=== PATIENT | female | born 2000 | race Caucasian/White ===

== ENCOUNTER 2022-08-18 23:45 | Emergency (ER) | payer MEDICAID, SELFPAY ==
[2022-08-18 23:49] VITALS: BP 149/97; PULSE 114; RESP 16; TEMP 36.5; O2SAT 98; BMI 33.4
[2022-08-19 00:59] LABS: MANUAL DIFF FLAG NO
[2022-08-19 01:00] LABS: Basophils Percent Auto 0.3 % (0-2); Eosinophils Absolute Auto 0.4 X10*3/uL (0.0-0.4); Eosinophils Percent Auto 4.4 % (0-4); Hematocrit 38.9 % (37.0-47.0); Hemoglobin 12.5 g/dl (12.0-16.0); Imm Gran Abs Auto 0.02 X10*3/uL (0.00-0.03); Imm Gran Pct Auto 0.2 % (0.0-0.4); Lymphocytes Absolute Auto 2.9 X10*3/uL (1.2-4.9); Lymphocytes Percent Auto 32.2 % (20-40); Mean Corpuscular HGB Conc 32.1 g/dl (31.0-35.0); Mean Corpuscular Hemoglobin 28.2 pg (27.0-33.0); Mean Corpuscular Volume 87.8 fL (80.0-98.0); Mean Platelet Volume 10.2 fL (9.4-12.3); Monocytes Absolute Auto 0.6 X10*3/uL (0.1-1.2); Monocytes Percent Auto 6.6 % (2-11); Neutrophils Percent Auto 56.3 % (45-73); Platelet Count 311 X10*3/uL (160-400); Red Blood Count 4.43 X10*6/uL (4.20-5.50); Red Cell Distribution Width 13.4 % (11.0-16.0)
[2022-08-19 01:02] LABS: COVID-19 Test Negative (Negative); IDNOW Serial# 55D5AD1C
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
[2022-08-19 01:14] LABS: Ethanol < 10 mg/dL
[2022-08-19 01:17] LABS: Alanine Aminotransferase 31 U/L (0-31); Albumin Level 4.2 g/dL (3.5-5.0); Alkaline Phosphatase 65 U/L (39-117); Anion Gap 15 (12-20); Aspartate Amino Transferase 19 U/L (5-31); Bilirubin Total 0.3 mg/dL (0.0-1.0); Blood Urea Nitrogen 11 mg/dL (9-16); Calcium 9.3 mg/dL (8.4-10.2); Carbon Dioxide 26 mmol/L (22-29); Chloride 107 mmol/L (96-108); Creatinine Clr Calc Pharmacy 121.7; Estimated Glomerular Filt Rate > 60; Glucose Random 154 mg/dL (60-115); Potassium 4.7 mmol/L (3.3-5.1); Sodium 143 mmol/L (135-145)
[2022-08-19 01:52] LABS: Appearance Urine Clear; Color Urine Yellow; Glucose Urine UA Negative (Negative); Leukocyte Esterase Urine Negative (Negative); Nitrite Urine Negative (Negative); PH 6.5 (5.0-9.0); Urine Blood Negative (Negative); Urine Ketones Negative (Negative); Urine Protein Negative (Neg-Trace)
[2022-08-19 01:54] LABS: UPreg QC Valid YES; Urine Pregnancy NEGATIVE (NEGATIVE)
[2022-08-19 02:00] LABS: Amphetamine Screen Urine Not Detected; Barbiturates, Urine Not Detected; Benzodiazepines Screen Urine Not Detected; Cannabinoid Screen Urine Not Detected; Cocaine Screen Urine Not Detected; Fentanyl, urine Not Detected; Opiate Screen Urine Not Detected; Phencyclidine Screen Urine Not Detected
[2022-08-19] MEDS: LORazepam 1 MG TABLET PO (02:28)
--- NOTE | 2022-08-19 05:52 | PC.NURSE ---
patient is in bed appears sleeping, no distress observed/reported, patient reported anxiety 11/15/Ativan 1 mg PO administered as ordered at 0228 with + effect, care consult ordered/pending evaluation, med rec completed/patient is currently not on any medication behavior non concerning, VSS, will continue to monitor
--- NOTE | 2022-08-19 08:00 | PC.NURSE ---
pt is sleeping resp even and unlabored.
--- NOTE | 2022-08-19 08:19 | PC.NURSE ---
pt's mother at bedside.
[2022-08-19] MEDS: Escitalopram Oxalate 20 MG TABLET PO (11:34)
[2022-08-19 11:39] VITALS: BP 113/69; PULSE 93; RESP 18; TEMP 36.4; O2SAT 99
--- NOTE | 2022-08-19 12:37 | PC.NURSE ---
financial councillor (dakotah) bedside with pt.
--- NOTE | 2022-08-19 12:52 | MHC.CARE ---
patient is a CSU/ respite bed search. No current beds at [facility], may have some tomorrow. BANK MANAGER [place] will call back re: availability, they have no power. [facility]. Pt able to stay in ED until safe disposition secured.
--- NOTE | 2022-08-19 13:31 | PC.NURSE ---
pt's mother is at bedside. pt is watching tv in common area.
--- NOTE | 2022-08-19 16:12 | PC.NURSE ---
pt resting on bed at this time, mom was at bedside until about 1545. Endorses SI at this time
[2022-08-19] MEDS: LORazepam 1 MG TABLET 2 MG PO (20:19)
[2022-08-20] VITALS: BP 124/39; PULSE 80; RESP 17; TEMP 36.4; O2SAT 98
--- NOTE | 2022-08-20 06:09 | PC.NURSE ---
Patient slept through the night, no distress observed/reported, Ativan 2 mg PO administered at 2219 with + effect, patient had one incontinent episode/care provided, medication compliant, behavior non concerning, disposition per care team is Respite bed search, VSS, will continue to monitor.
[2022-08-20] MEDS: Escitalopram Oxalate 20 MG TABLET PO (07:52)
[2022-08-20 08:47] VITALS: BP 118/67; PULSE 73; RESP 16; TEMP 36.5; O2SAT 98
--- NOTE | 2022-08-20 09:23 | MHC.CARE ---
re-sent [facility] respite/ CSU referral with the [facility] referral form. [facility]ia vuong [facility] reports they will likely have discharges today and will review and follow up
--- NOTE | 2022-08-20 13:05 | MHC.CARE ---
[facility] is still reviewing for their adult CSU beds and will follow up. In the meantime, patient is agreeable to being reviewed with KRIST[facility] Yoder in [place]. Faxed 08/20 [phone]
[2022-08-20] MEDS: Ondansetron ODT 4 MG TAB.RAPDIS TRANSLINGU (16:06)
[2022-08-20 18:09] VITALS: PULSE 18; O2SAT 98
--- NOTE | 2022-08-20 18:32 | PC.NURSE ---
PT HAS BEEN CALM AND COOPERATIVE WAITING ON BED PLACEMENT HAVING ISSUE WITH VOMITING THIS AFTERNOON RESOLVED WITH MEDICATIONS
[2022-08-20 22:00] VITALS: BP 117/69; PULSE 90; RESP 18; TEMP 36.6; O2SAT 97
[2022-08-20] MEDS: diphenhydrAMINE HCL 25 MG CAPSULE PO (22:45)
[2022-08-20] MEDS: LORazepam 0.5 MG TABLET PO (22:45)
[2022-08-21 04:57] VITALS: BP 126/76; PULSE 97; RESP 16; TEMP 36.6; O2SAT 99
--- NOTE | 2022-08-21 06:16 | PC.NURSE ---
Patient requested medication for anxiety, provider notified/ordered Ativan 0.5 mg and Benadryl 25 mg administered at 2245 with + effect, patient slept through the night, no distress observed/reported, patient's disposition is Respite bed search, behavior non concerning, medication compliant, VSS, will continue to monitor.
--- NOTE | 2022-08-21 07:13 | PC.NURSE ---
Patient sleeping no distress noted
[2022-08-21] MEDS: Escitalopram Oxalate 20 MG TABLET PO (08:05)
--- NOTE | 2022-08-21 08:30 | PC.NURSE ---
Mother at bedsdie with patient will CTM
== END 2022-08-21 10:17 | disposition other institution (70) ==
PROVIDERS: Emergency Provider Emergency Medicine
DX: R45.851 Suicidal ideations (principal); F41.9 Anxiety disorder, unspecified; F60.3 Borderline personality disorder; Z91.52 Personal history of nonsuicidal self-harm; F12.90 Cannabis use, unspecified, uncomplicated; Z20.822 Contact with and (suspected) exposure to COVID-19
CPT/HCPCS: 36415; 80053; 80307; 81003; 81025; 82077; 85025; 87635; 99285; S9485

== ENCOUNTER 2022-08-30 21:21 | Inpatient (IN) | payer MEDICAID, SELFPAY ==
[2022-08-30 21:27] VITALS: BP 137/101; PULSE 133; RESP 20; TEMP 37.1; O2SAT 98; BMI 34.2
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
[2022-08-30 22:42] LABS: UPreg QC Valid YES; Urine Pregnancy NEGATIVE (NEGATIVE)
[2022-08-30 22:44] LABS: Appearance Urine Clear; Color Urine Yellow; Glucose Urine UA Negative (Negative); Leukocyte Esterase Urine Negative (Negative); Nitrite Urine Negative (Negative); Specific Gravity - Urine >= 1.030 (1.005-1.025); Urine Blood Negative (Negative); Urine Ketones Trace mg/dL (Negative); Urine Protein Negative (Neg-Trace)
[2022-08-30 22:55] LABS: Amphetamine Screen Urine Not Detected; Barbiturates, Urine Not Detected; Benzodiazepines Screen Urine Not Detected; Cannabinoid Screen Urine Not Detected; Cocaine Screen Urine Not Detected; Fentanyl, urine Not Detected; Opiate Screen Urine Not Detected; Phencyclidine Screen Urine Not Detected
[2022-08-30 23:24] LABS: COVID-19 Test Negative; IDNOW Serial# 6674DD1D
[2022-08-31 00:02] LABS: Basophils Percent Auto 0.3 %; Eosinophils Absolute Auto 0.2 X10*3/uL; Eosinophils Percent Auto 2.3 %; Hematocrit 36.7 %; Hemoglobin 11.9 g/dl; Imm Gran Abs Auto 0.02 X10*3/uL (0.00-0.03); Imm Gran Pct Auto 0.2 % (0.0-0.4); Lymphocytes Absolute Auto 2.9 X10*3/uL; Lymphocytes Percent Auto 29.1 %; MANUAL DIFF FLAG NO; Mean Corpuscular HGB Conc 32.4 g/dl; Mean Corpuscular Hemoglobin 28.1 pg; Mean Corpuscular Volume 86.6 fL; Mean Platelet Volume 10.1 fL (9.4-12.4); Monocytes Absolute Auto 0.8 X10*3/uL; Monocytes Percent Auto 7.8 %; Neutrophils Absolute Auto 6.1 x10*3/uL; Neutrophils Percent Auto 60.3 %; Platelet Count 281 X10*3/uL; Red Blood Count 4.24 X10*6/uL; Red Cell Distribution Width 13.7 % (11.0-16.0); White Blood Count 10.1 X10*3/uL
[2022-08-31 00:22] LABS: Alanine Aminotransferase 18 U/L; Alkaline Phosphatase 59 U/L; Anion Gap 13; Aspartate Amino Transferase 17 U/L; Bilirubin Total 0.3 mg/dL; Blood Urea Nitrogen 15 mg/dL; Calcium 9.1 mg/dL; Carbon Dioxide 24 mmol/L; Chloride 109 mmol/L; Estimated Glomerular Filt Rate > 60; Ethanol < 10 mg/dL; Glucose Random 101 mg/dL; Sodium 141 mmol/L; Total Protein 6.7 g/dL
[2022-08-31 01:30] VITALS: BP 116/79; PULSE 97; RESP 16; TEMP 36.8; O2SAT 99
[2022-08-31] MEDS: diphenhydrAMINE HCL 25 MG CAPSULE 50 MG PO ×2 (01:38→22:46)
--- NOTE | 2022-08-31 05:19 | PC.NURSE ---
Patient slept through the night, Benadryl 50 mg administered for sleep at 0138 with + effect, no distress observed/reported, patient engaged well with care team, disposition is section 12 inpatient bed search, behavior non concerning, med rec completed/pending provider's approval, will continue to monitor.
--- NOTE | 2022-08-31 15:02 | PC.NURSE ---
Addendum entered by Shahla Valle 08/31/22 15:06: pt awoke and informed this RN that they had bruises on back from falling down the stairs a few days ago. small areas of bruising on lower middle back. ice pack provided. Pt also requesting their Lexapro, no Lexapro was found in MAR or previous pt record. Pt states that the last time they had it filled, it was filled in [place]. MD epstein Original Note: Report received, pt sleeping at this time, mother with pt. respirations even and unlabored. no apparent distress
[2022-08-31] MEDS: Ibuprofen 400 MG TABLET PO (15:17)
[2022-08-31 16:00] VITALS: BP 132/82; PULSE 77; RESP 18; TEMP 37.1; O2SAT 100
[2022-08-31 20:21] VITALS: BP 119/76; PULSE 75; RESP 18; TEMP 36.8; O2SAT 100
[2022-09-01 05:43] VITALS: BP 120/74; PULSE 69; RESP 17; TEMP 36.8; O2SAT 100
--- NOTE | 2022-09-01 07:48 | PC.NURSE ---
patient appears to remain at rest at present on recliner watching television respirations are even and unlabored patient appears in no distress
[2022-09-01 09:46] VITALS: BP 116/70; PULSE 97; RESP 16; TEMP 36.8; O2SAT 99
--- NOTE | 2022-09-01 12:10 | ECG_ITS ---
Test Reason : psych meds Blood Pressure : / mmHG Vent. Rate : 075 BPM Atrial Rate : 075 BPM P-R Int : 132 ms QRS Dur : 090 ms QT Int : 400 ms P-R-T Axes : 056 043 036 degrees QTc Int : 446 ms Sinus rhythm with Premature atrial complexes with Aberrant conduction Otherwise normal ECG No previous ECGs available Referred By: Kelsi Gonzalez Electronically Signed By:VERONIKA NEVAREZ
[2022-09-01 20:43] VITALS: BP 143/89; PULSE 89; RESP 18; TEMP 36.7; O2SAT 100
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
[2022-09-02 09:00] VITALS: BP 120/68; PULSE 76; RESP 16; TEMP 36.6; O2SAT 96
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
[2022-09-02 10:15] LABS: Alanine Aminotransferase 23 U/L; Albumin Level 3.9 g/dL; Alkaline Phosphatase 57 U/L; Anion Gap 12; Aspartate Amino Transferase 19 U/L; Bilirubin Total 0.5 mg/dL; Blood Urea Nitrogen 8 mg/dL; Calcium 9.2 mg/dL; Carbon Dioxide 25 mmol/L; Chloride 108 mmol/L; Cholesterol 108 mg/dL; Estimated Glomerular Filt Rate > 60; Glucose Fasting 95 mg/dL; HDL Cholesterol 38 mg/dL; LDL Cholesterol Calculated 56 mg/dl; Potassium 4.9 mmol/L; Sodium 140 mmol/L; Total Protein 6.5 g/dL; Triglycerides 73 mg/dL
[2022-09-02 10:29] LABS: Estimated Average Glucose 105 mg/dL; Hemoglobin A1c % 5.3 %
[2022-09-02 10:45] LABS: Folate 18.2 ng/mL; Thyroid Stimulating Hormone 1.04 uIU/mL; Vitamin B12 744 pg/mL
[2022-09-02] MEDS: Escitalopram Oxalate 20 MG TABLET PO (17:38)
[2022-09-02 19:31] VITALS: BP 117/76; PULSE 106; RESP 18; TEMP 36.2; O2SAT 96
[2022-09-02] MEDS: cloNIDine HCL 0.1 MG TABLET PO (21:57)
[2022-09-03 08:46] VITALS: BP 110/55; PULSE 82; RESP 20; TEMP 37.1; O2SAT 98
[2022-09-03] MEDS: Acetaminophen 325 MG TABLET 650 MG PO (08:47)
[2022-09-03] MEDS: Escitalopram Oxalate 20 MG TABLET PO (08:48)
--- NOTE | 2022-09-03 16:46 | P.PNPSI_ITS ---
Subjective Subjective Date of Service: 09/03/22 Reason For Visit: SI Interim History: calm, cooperative. feeling better. slept well no nightmares. reports h/o abilify and vraylar, both of which gave her blurry vision, dizziness, and nausea. c/o anxiety and depression, discussed augmentation with atypical neuroleptics as has been attempted in the past, pt agreed to trial of geodon. per staff, active, appropriate. anxious. denies psych Sx. reading. not attending groups. safe. mild anx/dep eves. no SI/HI/AVH. slept well. planning to step down to respite, working with SW to secure a bed. Mental Status Exam Mental Status Exam Narrative: Appearance: wearing casual clothing, good hygiene, in NAD Behavior: cooperative Speech: clear, normal rate/rhythm/volume, spontaneous Psychomotor: no agitation or retardation noted TP: linear TC: no signs of psychosis, wanting help with finding treaters and housing Mood: better Affect: congruent, bright, non labile SI: denies- but reports intermittent SI/ non suicidal SIB. HI: denies VH/AH: none Delusions: none Insight/judgment: fair x 2. Memory/cog: alert, oriented x3. Grossly intact to conversational testing. Diagnostics Vital Signs (24Hr): Vital Signs - 24 hr 09/02/22 19:31 09/03/22 08:46 Temperature 97.2 F 98.7 F Pulse Rate 106 H 82 Respiratory Rate 18 20 Blood Pressure 117/76 110/55 L Pulse Oximetry 96 98 Oxygen Delivery Method Room Air Room Air BMI result Body Mass Index 34.2 Labs 08/30/22 23:56 09/02/22 08:38 Labs: Laboratory Results - last 48 hr 09/02/22 09/02/22 08:38 08:38 Sodium 140 Potassium 4.9 Chloride 108 Carbon Dioxide 25 Anion Gap 12 BUN 8 Creatinine 0.79 Estim Creat Clear Calc TNP Estimated GFR > 60 Fasting Glucose 95 Estimat Average Glucose 105 Hemoglobin A1c % 5.3 Calcium 9.2 Total Bilirubin 0.5 AST 19 ALT 23 Alkaline Phosphatase 57 Total Protein 6.5 Albumin 3.9 Triglycerides 73 Cholesterol 108 LDL Cholesterol, Calc 56 HDL Cholesterol 38 Vitamin B12 744 Folate 18.2 TSH 1.04 Medications Medications Current Medications Acetaminophen (Acetaminophen 325 Mg Tablet) 650 mg PO Q6H PRN PRN Reason: Headache/Pain Mild Scale (1-3) Last Admin: 09/03/22 08:47 Dose: 650 mg Al Hydroxide/Mg Hydroxide (Magnesium Hydrox/Alum Hydrox 30 Ml Oral.Susp) 30 ml PO Q6H PRN PRN Reason: Heartburn/Nausea Clonidine HCl (Clonidine Hcl 0.1 Mg Tablet) 0.1 mg PO BEDTIME YUDI; Protocol Last Admin: 09/02/22 21:57 Dose: 0.1 mg Escitalopram Oxalate (Escitalopram Oxalate 20 Mg Tablet) 20 mg PO DAILY YUDI Last Admin: 09/03/22 08:48 Dose: 20 mg Hydroxyzine HCl (Hydroxyzine Hcl 25 Mg Tablet) 25 mg PO Q6H PRN PRN Reason: Anxiety Magnesium Hydroxide (Milk Of Magnesia 30 Ml Oral.Susp) 30 ml PO DAILY PRN PRN Reason: Constipation Trazodone HCl (Trazodone Hcl 50 Mg Tablet) 50 mg PO BEDTIME PRN PRN Reason: Insomnia Ziprasidone (Ziprasidone 20 Mg Capsule) 20 mg PO BIDWM YUDI Allergies Allergies Allergy/AdvReac Type Severity Reaction Status Date / Time insect venom Allergy Swelling Verified 08/19/22 00:16 Penicillins Allergy Nausea Verified 08/19/22 00:14 Assessment & Plan Assessment & Plan (1) Borderline personality disorder: Status: Acute Code(s): F60.3 - Borderline personality disorder Plan Slava is a 22 non binary (prefers they pronoun) who self [place] [facility] [place] SI in context of argument with grandmother with whom she is living. Pt reports tumultuous relationship with grandmother but states they are staying with her due to financial and housing limitations. On the unit, pt denies SI/HI. Pt does report hx of SIB on and off- denies any urges to self harm now. We discussed risks, benefits and alternative treatment options, restart lexapro 20mg po daily, clonidine 0.1mg po qhs. PLAN 1. Admit to M3, CV, 15 minutes checks for safety 2. restart lexapro 20mg po daily, clonidine 0.1 mg po qhs 3. Aftercare planning. 09/03: continue lexapro 20 mg daily and clonidine 0.1 mg QHS. start geodon 20 BID for antidepressant augmentation and mood stabilization. Reason for contiued inpatient stay Substantial Risk for: inability to function and med/psych decompensation Time Spent With Patient Time: Total time managing care of this patient today __25__ minutes.
[2022-09-03] MEDS: Ziprasidone 20 MG CAPSULE PO (17:54)
[2022-09-03 21:05] VITALS: BP 118/81; PULSE 71; RESP 18; TEMP 36.8; O2SAT 100
[2022-09-03] MEDS: cloNIDine HCL 0.1 MG TABLET PO (21:14)
[2022-09-04 07:00] VITALS: BMI 34.9
[2022-09-04 08:00] VITALS: BP 104/53; PULSE 78; RESP 18; TEMP 36.6; O2SAT 98
[2022-09-04] MEDS: Ziprasidone 20 MG CAPSULE PO ×2 (08:44→18:10)
[2022-09-04] MEDS: Escitalopram Oxalate 20 MG TABLET PO (08:44)
[2022-09-04 14:08] LABS: COVID-19 Test Negative (Negative); IDNOW Serial# BCCEAD1C
--- NOTE | 2022-09-04 15:38 | PM.PSYDC ---
DS: Providers Provider Date of Service: 09/04/22 Date of admission: 09/01/22 17:48 Primary care physician: None Physician DS: Diagnosis Discharge Diagnosis (1) Borderline personality disorder: Status: Acute DS: Medications Discharge Medications Home Medications: Previous Rx's Medication Instructions Recorded clonidine HCl 0.1 mg tablet 0.05 mg PO BEDTIME 30 days #15 tabs 09/04/22 escitalopram oxalate 20 mg tablet 20 mg PO DAILY 30 days #30 tabs 09/04/22 hydroxyzine HCl 25 mg tablet 25 mg PO TID PRN Anxiety 30 days 09/04/22 #90 tabs ziprasidone HCl 20 mg capsule 20 mg PO BIDWM 30 days #60 caps 09/04/22 Mental Status Exam Mental Status Exam Narrative: Appearance: wearing casual clothing, good hygiene, in NAD Behavior: cooperative Speech: clear, normal rate/rhythm/volume, spontaneous Psychomotor: no agitation or retardation noted TP: linear TC: no signs of psychosis, wanting help with finding treaters and housing Mood: ok Affect: congruent, bright, non labile SI: denies HI: denies VH/AH: none Delusions: none Insight/judgment: fair x 2. Memory/cog: alert, oriented x3. Grossly intact to conversational testing. Data Data Completed and Pending Completed studies during hospitalization [Text1]: 08/30/22 08/30/22 08/30/22 22:33 22:33 22:33 WBC RBC Hgb Hct MCV MCH MCHC RDW Plt Count MPV Immature Gran % (Auto) Neut % (Auto) Lymph % (Auto) [place] % (Auto) Eos % (Auto) Baso % (Auto) Lymph # (Auto) [place] # (Auto) Eos # (Auto) Baso # (Auto) Abs Immat Gran (auto) Absolute Neuts (auto) Absolute Nucleated RBC Nucleated RBC % (auto) Sodium Potassium Chloride Carbon Dioxide Anion Gap BUN Creatinine Estim Creat Clear Calc Estimated GFR Random Glucose Fasting Glucose Estimat Average Glucose Hemoglobin A1c % Calcium Total Bilirubin AST ALT Alkaline Phosphatase Total Protein Albumin Triglycerides Cholesterol LDL Cholesterol, Calc HDL Cholesterol Vitamin B12 Folate TSH Urine Color Yellow Urine Appearance Clear Urine pH 6.0 Ur Specific [place] >= 1.030 H Urine Protein Negative Urine Glucose (UA) Negative Urine Ketones Trace Urine Blood Negative Urine Nitrite Negative Ur Leukocyte Esterase Negative Urine Test Urine Opiates Screen Not Detected Urine Fentanyl Screen Not Detected Ur Barbiturates Screen Not Detected Ur Phencyclidine Scrn Not Detected Ur Amphetamines Screen Not Detected U Benzodiazepines Scrn Not Detected Urine Cocaine Screen Not Detected U Marijuana (THC) Screen Not Detected Ethyl Alcohol COVID-19 (MAX) Negative COVID-19 Clin Com See Note 08/30/22 08/30/22 08/30/22 22:33 23:56 23:56 WBC 10.1 RBC 4.24 Hgb 11.9 Hct 36.7 MCV 86.6 MCH 28.1 MCHC 32.4 RDW 13.7 Plt Count 281 MPV 10.1 Immature Gran % (Auto) 0.2 Neut % (Auto) 60.3 Lymph % (Auto) 29.1 [place] % (Auto) 7.8 Eos % (Auto) 2.3 Baso % (Auto) 0.3 Lymph # (Auto) 2.9 [place] # (Auto) 0.8 Eos # (Auto) 0.2 Baso # (Auto) 0.0 Abs Immat Gran (auto) 0.02 Absolute Neuts (auto) 6.1 Absolute Nucleated RBC 0.000 Nucleated RBC % (auto) 0.0 Sodium 141 Potassium 5.0 Chloride 109 Carbon Dioxide 24 Anion Gap 13 BUN 15 Creatinine 0.76 Estim Creat Clear Calc TNP Estimated GFR > 60 Random Glucose 101 Fasting Glucose Estimat Average Glucose Hemoglobin A1c % Calcium 9.1 Total Bilirubin 0.3 AST 17 ALT 18 Alkaline Phosphatase 59 Total Protein 6.7 Albumin 4.0 Triglycerides Cholesterol LDL Cholesterol, Calc HDL Cholesterol Vitamin B12 Folate TSH Urine Color Urine Appearance Urine pH Ur Specific [place] Urine Protein Urine Glucose (UA) Urine Ketones Urine Blood Urine Nitrite Ur Leukocyte Esterase Urine Test NEGATIVE Urine Opiates Screen Urine Fentanyl Screen Ur Barbiturates Screen Ur Phencyclidine Scrn Ur Amphetamines Screen U Benzodiazepines Scrn Urine Cocaine Screen U Marijuana (THC) Screen Ethyl Alcohol < 10 COVID-19 (MAX) COVID-19 Clin Com 09/02/22 09/02/22 09/04/22 08:38 08:38 13:30 WBC RBC Hgb Hct MCV MCH MCHC RDW Plt Count MPV Immature Gran % (Auto) Neut % (Auto) Lymph % (Auto) [place] % (Auto) Eos % (Auto) Baso % (Auto) Lymph # (Auto) [place] # (Auto) Eos # (Auto) Baso # (Auto) Abs Immat Gran (auto) Absolute Neuts (auto) Absolute Nucleated RBC Nucleated RBC % (auto) Sodium 140 Potassium 4.9 Chloride 108 Carbon Dioxide 25 Anion Gap 12 BUN 8 Creatinine 0.79 Estim Creat Clear Calc TNP Estimated GFR > 60 Random Glucose Fasting Glucose 95 Estimat Average Glucose 105 Hemoglobin A1c % 5.3 Calcium 9.2 Total Bilirubin 0.5 AST 19 ALT 23 Alkaline Phosphatase 57 Total Protein 6.5 Albumin 3.9 Triglycerides 73 Cholesterol 108 LDL Cholesterol, Calc 56 HDL Cholesterol 38 Vitamin B12 744 Folate 18.2 TSH 1.04 Urine Color Urine Appearance Urine pH Ur Specific [place] Urine Protein Urine Glucose (UA) Urine Ketones Urine Blood Urine Nitrite Ur Leukocyte Esterase Urine Test Urine Opiates Screen Urine Fentanyl Screen Ur Barbiturates Screen Ur Phencyclidine Scrn Ur Amphetamines Screen U Benzodiazepines Scrn Urine Cocaine Screen U Marijuana (THC) Screen Ethyl Alcohol COVID-19 (MAX) Negative COVID-19 Clin Com See Note DS: Summary Hospital Course Hospital Course: per 09/02 admission note: HPI Subjective Notes: Gupta Warning (given and shows understanding) and Conditional Voluntary Narrative: Slava is a 22 non binary (prefers they pronoun) with hx of Borderline Personality disorder, who self presented to [facility] ED reporting in SI with plan to OD or cut wrist in setting of argument with grandmother. In the ED, utox is negative. On the unit, Slava reports they moved from [place] about 3 months ago to live with their maternal grandmother. Pt reports turbulent relationship with their maternal grandmother for years but needing to stay with her as pt is currently struggle with finances and housing. Pt moved here to [place] with their mother. Pt reports long hx of mental health. They report hx of Borderline Personality Disorder, which pt describes as mood dysregulation my mood changes quickly. Pt reports she went to respite for 10 days and left AMA. Pt reports it was impulsive decision as they state program was helpful. On the unit, pt denies suicidal or homicidal ideation. They denied VH/AH. They report inconsistent sleep. They report being on lexapro for several years with good effect. They report hx of non suicidal injurious behaviors (cutting). Past Psychiatric History: Inpatient: 2018- 4 inpts OP: none Past medication trials: lexapro, ativan, adderall, clonidine, vraylar, abilify (nausea, restlessness, blurry vision) ? Hx of suicide attempts: reports 2017 OD on sedatives. Medical Evaluation Reviewed: Yes CBC, CMP wnl. [facility]tox negative. [facility] History?(Updated 09/02/22 @ 13:33 by Yanni Baker) Anxiety and depression Borderline personality disorder 09/03: calm, cooperative.? feeling better.? slept well no nightmares.? reports h/o abilify and vraylar, both of which gave her blurry vision, dizziness, and nausea.? c/o anxiety and depression, discussed augmentation with atypical neuroleptics as has been attempted in the past, pt agreed to trial of geodon.? per staff, active, appropriate.? anxious.? denies psych Sx.? reading.? not attending groups.? safe. ? mild anx/dep eves.? no SI/HI/AVH.? slept well.? planning to step down to respite, working with SW to secure a bed. 09/04: stable, dizzy from clonidine. decrease clonidine to 0-.05 mg at HS. respite bed found for tomorrow. stable, plan to discharge tomorrow. Precis: Slava is a 22 non binary (prefers they pronoun) who self presented to [facility] ED reporting SI in context of argument with grandmother with whom she is living. Pt reports tumultuous relationship with grandmother but states they are staying with her due to financial and housing limitations. On the unit, pt denies SI/HI. Pt does report hx of SIB on and off- denies any urges to self harm now. We discussed risks, benefits and alternative treatment options, restart lexapro 20mg po daily, clonidine 0.1mg po qhs. 09/02: Admit to M3, CV, 15 minutes checks for safety. restart lexapro 20mg po daily, clonidine 0.1 mg po qhs. Aftercare planning. 09/03: continue lexapro 20 mg daily and clonidine 0.1 mg QHS.? start geodon 20 BID for antidepressant augmentation and mood stabilization. 09/04: decrease HS clonidine to 0.05 due to dizziness. bed at respite found for tomorrow. otherwise stable. continue current mgmt. 09/05: stable, discharged to respite as per plan. Time Spent with Patient Time attestation: Total time managing care of this patient today ____ minutes. Time spent: Greater than 30 minutes Discharge Plan Discharge Patient Disposition: Xfer to Respite Facility Discharge Diagnosis: Depressive Disorder NOS Referrals: [facility] [Provider Group] - 1 Week Discharge Medications: New clonidine HCl 0.1 mg Tablet 0.05 mg PO BEDTIME 30 Days Qty: 15 0RF Protocol: Hold for SBP< HOLD for SBP < : 90 ziprasidone HCl 20 mg Capsule 20 mg PO BIDWM 30 Days Qty: 60 0RF escitalopram oxalate 20 mg Tablet 20 mg PO DAILY 30 Days Qty: 30 0RF Continued hydroxyzine HCl 25 mg Tablet 25 mg PO TID PRN (Reason: Anxiety) 30 Days Qty: 90 0RF Discharge Orders: Discharge Order (Routine); Ordered 09/05/22 Ordered By: Diego Loo Diet: Advance to usual diet Activity on Discharge: As tolerated Stand Alone Forms: Patient Portal Discharge page, Community Support Care Plan Goals: remain safe and sober in the outpatient treatment setting Health Concerns: none Plan of Treatment: take medications as prescribed, attend appointments as scheduled Assessment: not at imminent risk of harm to self or others Discharge Date/Time: 09/05/22 11:05
[2022-09-04 20:00] VITALS: BP 117/76
[2022-09-04 20:19] VITALS: BP 117/80; PULSE 84; TEMP 36.8; O2SAT 99
[2022-09-04] MEDS: Milk of Magnesia 30 ML ORAL.SUSP PO (23:09)
[2022-09-04] MEDS: cloNIDine HCL 0.1 MG TABLET 0.05 MG PO (23:22)
[2022-09-05 08:52] VITALS: BP 115/63; PULSE 85; RESP 16; TEMP 36.7; O2SAT 97
--- NOTE | 2022-09-05 09:06 | PC.NURSE ---
Slava is alert, fully oriented, pleasant and cooperative with discharge process. She denies ideation, plan or intent to harm self or others. She denies current physical complaint. She verbalizes understanding of discharge plan including medications and appointments.
[2022-09-05] MEDS: Ziprasidone 20 MG CAPSULE PO (09:29)
[2022-09-05] MEDS: Escitalopram Oxalate 20 MG TABLET PO (09:29)
== END 2022-09-05 11:05 | DRG 752 ==
LOC: HO.ED 22:29 → HO.PADLT16 09-01 18:09
PROVIDERS: Admitting Provider Psychiatry & Neurology Psychiatry; Emergency Provider Emergency Medicine; Visit Provider Social Worker
DX: F60.3 Borderline personality disorder (principal); R45.851 Suicidal ideations; Z88.0 Allergy status to penicillin; Z79.899 Other long term (current) drug therapy
CPT/HCPCS: 36415; 80053; 80061; 80307; 81003; 81025; 82077; 82607; 82746; 83036; 84443; 85025; 87635; 93005; 99285; S9485

== ENCOUNTER 2023-01-01 09:19 | Emergency (ER) | payer MEDICAID, SELFPAY ==
--- NOTE | ~2023-01-01 | XR_ITS ---
EXAMINATION: XR CHEST CLINICAL INFORMATION: Chest pain, shortness of breath, dizziness. COMPARISON: None available. TECHNIQUE: 2 views of the chest were obtained. FINDINGS: No significant abnormality is noted involving the heart, lungs, mediastinum, bony thorax or soft tissues. XR/XR chest 2V IMPRESSION: No acute cardiopulmonary process.
[2023-01-01 09:21] VITALS: BP 114/71; PULSE 84; RESP 18; TEMP 36; O2SAT 95; BMI 34.9
--- NOTE | 2023-01-01 09:28 | ECG_ITS ---
Test Reason : cp Blood Pressure : / mmHG Vent. Rate : 082 BPM Atrial Rate : 082 BPM P-R Int : 144 ms QRS Dur : 092 ms QT Int : 390 ms P-R-T Axes : 059 029 023 degrees QTc Int : 455 ms Normal sinus rhythm Nonspecific T wave abnormality Abnormal ECG When compared with ECG of 01-SEP-2022 12:21, Aberrant conduction is no longer Present Referred By: Generic ED Physician Electronically Signed By:ANAI FOUNTAIN MD
--- NOTE | 2023-01-01 09:47 | PC.NURSE ---
pt aox4, ambulatory. reports that they started taking Geodon in august for sheron, and about 3-4 weeks ago began noticing chest pain and palpitations. Last night these symptoms increased but she was unable to get to the hospital. Current pain 07/18, EKG done, awaiting lab draw.
[2023-01-01 10:09] VITALS: BP 120/72; PULSE 65; RESP 18; O2SAT 96
[2023-01-01 10:21] LABS: MANUAL DIFF FLAG NO
[2023-01-01 10:23] LABS: Basophils Percent Auto 0.3 % (0-2); Eosinophils Absolute Auto 0.1 X10*3/uL (0.0-0.4); Eosinophils Percent Auto 1.8 % (0-4); Hematocrit 37.7 % (37.0-47.0); Hemoglobin 12.3 g/dl (12.0-16.0); Imm Gran Abs Auto 0.02 X10*3/uL (0.00-0.03); Imm Gran Pct Auto 0.3 % (0.0-0.4); Lymphocytes Absolute Auto 1.7 X10*3/uL (1.2-4.9); Lymphocytes Percent Auto 25.1 % (20-40); Mean Corpuscular HGB Conc 32.6 g/dl (31.0-35.0); Mean Corpuscular Hemoglobin 28.5 pg (27.0-33.0); Mean Corpuscular Volume 87.3 fL (80.0-98.0); Monocytes Absolute Auto 0.5 X10*3/uL (0.1-1.2); Monocytes Percent Auto 6.8 % (2-11); Neutrophils Absolute Auto 4.3 x10*3/uL (2.0-8.3); Neutrophils Percent Auto 65.7 % (45-73); Platelet Count 261 X10*3/uL (160-400); Red Blood Count 4.32 X10*6/uL (4.20-5.50); Red Cell Distribution Width 13.6 % (11.0-16.0); White Blood Count 6.6 X10*3/uL (4.8-10.8)
[2023-01-01 10:28] LABS: Prothrombin Time 12.4 SEC (11.1-13.3)
[2023-01-01 10:40] LABS: Anion Gap 14 (12-20); Blood Urea Nitrogen 8 mg/dL (9-16); Calcium 9.8 mg/dL (8.4-10.2); Carbon Dioxide 23 mmol/L (22-29); Chloride 107 mmol/L (96-108); Estimated Glomerular Filt Rate > 60; Glucose Random 95 mg/dL (60-115); Potassium 4.4 mmol/L (3.3-5.1); Sodium 140 mmol/L (135-145)
[2023-01-01 10:41] LABS: Alanine Aminotransferase 31 U/L (0-31); Alkaline Phosphatase 59 U/L (39-117); Aspartate Amino Transferase 25 U/L (5-31); Bilirubin Direct 0.2 mg/dL (0.0-0.5); Bilirubin Total 0.5 mg/dL (0.0-1.0); Magnesium 1.9 mg/dL (1.6-2.6); Total Protein 7.1 g/dL (6.5-8.0)
--- NOTE | 2023-01-01 10:44 | ED.CHESTPAIN ---
HPI - Chest Pain General Chief Complaint: Chest Pain Stated Complaint: chest pain sob Time Seen by Provider: 01/01/23 09:52 Source: patient Mode of arrival: ambulatory Limitations: no limitations History of Present Illness HPI narrative: 22 yo female with past medical history of borderline personality disorder, anxiety, depression, PCOS presents the ER with complaints of several weeks of chest tightness, shortness of breath which is intermittent and worsened at night time with associated palpitations. Patient denies any cough, fever, leg swelling, leg pain, dizziness. No recent travel or sick contact. No OCP or hormone therapy use. Patient feels that the symptoms are related to taking her Geodon. She has been on Geodon since August. She denies any recent dose changes. She has had some confusion about when to take her medication and how often she should take her medication. She has tried reaching out to her psychiatrist this month but has been unsuccessful in confirming her dose with them. She did try to go to the walk-in at the [facility] on [address] but was unable to speak to anyone about her medication. She feels that this is making her symptoms worse. She has had increasing anxiety over the last month and stress in regards to her medications. Her psychiatrist is Leonid Abraham, her therapist is Gerardo. Denies smoking history. Denies substance use No family history of SCD, blood clots Related Data Previous Rx's Medication Instructions Recorded clonidine HCl 0.1 mg tablet 0.05 mg PO BEDTIME 30 days #15 tabs 09/04/22 escitalopram oxalate 20 mg tablet 20 mg PO DAILY 30 days #30 tabs 09/04/22 hydroxyzine HCl 25 mg tablet 25 mg PO TID PRN Anxiety 30 days 09/04/22 #90 tabs ziprasidone HCl 20 mg capsule 20 mg PO BIDWM 30 days #60 caps 09/04/22 Allergies Allergy/AdvReac Type Severity Reaction Status Date / Time insect venom Allergy Swelling Verified 08/19/22 00:16 Penicillins Allergy Nausea Verified 08/19/22 00:14 Review of Systems Review of Systems: Yes all other systems are reviewed and are negative Constitutional: Constitutional: Reports no additional constitutional complaints, Denies body ache(s), Denies chills, Denies fever(s), Denies headache(s) and Denies weakness Eyes: Eyes: Reports no additional eye complaints and Denies change in vision ENT: Reports system reviewed and no additional complaints, except as documented, Denies dizziness, Denies headache(s), Denies nasal congestion, Denies nasal discharge and Denies neck pain Cardiovascular: Cardiovascular: Reports no additional cardiovascular complaints, Reports chest pain, Denies leg edema, Reports palpitations and Reports dyspnea Respiratory: Respiratory: Reports no additional respiratory complaints, Denies cough and Reports dyspnea Gastrointestinal: Gastrointestinal: Reports no additional gastrointestinal complaints, Denies abdominal pain, Denies diarrhea, Denies nausea and Denies vomiting Genitourinary: Genitourinary: Reports no additional female genitourinary complaints and Denies urinary incontinence Musculoskeletal: Musculoskeletal: Reports no additional musculoskeletal complaints, Denies back pain, Denies arthralgias, Denies joint swelling, Denies neck pain, Denies numbness and Denies tingling Integumentary/Breasts: Skin/Breast: Reports system reviewed and no additional complaints, except as docu and Denies rash Neurologic: Reports system reviewed and no additional complaints, except as documented, Denies Abnormal speech present, Denies dizziness, Denies headache(s), Denies numbness, Denies tingling and Denies weakness Endocrine: Endocrine: Reports palpitations PMFSH Past Medical History Attestation statement: The following information was validated with the patient. Source: old records reviewed and nursing notes reviewed Medical History Anxiety and depression Borderline personality disorder Social History Social History Household Members: Family Housing: House Do you presently have visiting nurse or other home services: No Alcohol intake: current Alcohol intake frequency: holidays/special occasions only Patient Tobacco Use Status: Never used Tobacco Smoked in Last 30 Days: No Use of substances other than those prescribed or required for medical reasons: Yes Substance Use Type: Marijuana Advance Directives: No Advance Directives Information Provided: Yes service: No Sexual orientation: Don't Know Physical Exam Vital Signs: Vital Signs: Last Vital Signs Temp 96.8 F 01/01/23 09:21 Pulse 77 01/01/23 12:04 Resp 18 01/01/23 12:04 BP 116/68 01/01/23 12:04 Pulse Ox 99 01/01/23 12:04 O2 Del Method Room Air 01/01/23 12:04 BMI result Body Mass Index 34.9 Const: General: cooperative, healthy appearing, comfortable and no acute distress Orientation/consciousness: patient oriented x3 Limitations: no limitations HEENT: Head: Yes normal to inspection Ears: hearing grossly normal bilaterally General nose exam: Normal external nose present Face and sinus: Yes normal facial exam Mouth: Normal oral and palatal mucosa present Throat: Yes posterior oropharynx normal Eyes: General: appearance normal, both eyes and all related structures Pupils: Equal, round and reactive pupils present Neck: Neck: Yes normal visual inspection Chest: Chest palpation & inspection: normal inspection of the chest Resp: Effort & Inspection: normal respiratory effort Auscultation: clear to auscultation bilaterally Cardio: Rate: regular rate Rhythm: regular rhythm Peripheral pulses: Peripheral pulses 2+ throughout GI: Inspection: Yes normal to inspection Palpation (GI): Soft to palpation and nontender Auscultation: normal bowel sounds Back/Spine/Pelvis: Thoracic/Lumbar Spine: thoracic and lumbar spine normal to inspection Skin: General skin exam: no rashes or lesions noted Neuro: General: patient oriented x3, no focal motor deficits and normal sensation to monofilament Cranial nerves: Yes Equal, round and reactive pupils present Cognition (Neuro): normal cognition Speech: No Abnormal speech present Gait exam (Neuro): Normal gait present Motor exam (neuro): 5/5 motor strength present throughout Extrem: General: Yes normal to inspection, Yes no pedal edema and Yes no calf tenderness Course Course Course Narrative: Labs are unremarkable. EKG shows no ischemic changes. Chest x-ray is negative for any acute finding. Recommend patient follow-up outpatient with primary care. Reviewed worrisome signs and symptoms of when to return to the emergency room. Comfortable plan for discharge home. Medical Decision Making Medical Decision Making [facility] Narrative: 22 yo female with a past medical history of borderline personality disorder, anxiety, depression, PCOS here with several weeks of chest tightness, shortness of breath, palpitations at rest. Patient feels this is medication related and has many concerns over her geodon dosage and schedule. Has tried to get in touch with her psychiatrist but has been unsuccessful which patient tells me is contributing to her anxiety. No SI/HI Her exam is benign. Her lungs are clear. Her vitals are stable. Will check labs, EKG, chest x-ray Will involve care team to see if they can assist with outpatient f/u, med concerns for psychiatrist Differential Diagnosis Differential Diagnoses: The differential diagnosis associated with the presentation includes ACS-low concern with negative troponin and EKG, history not typical for ACS.? Heart score 0 PE-less likely with no hypoxia, no tachypnea, no tachycardia.? No clinical findings concerning for DVT.? No risk factors.? Perc score 0 Low concern for aortic dissection with gradual onset PTX Consult Healthcare Provider Management of the patient was discussed with: Project Structural Engineer Patient seen by Care team (Juliann) who was able to confirm dose and schedule of medication with [facility] Lab Data MDM Lab Attestation statement: I reviewed the patient's lab results. Reviewed labs which are unremarkable 01/01/23 10:16 01/01/23 10:16 Labs: Lab Results 01/01/23 01/01/23 01/01/23 Range/Units 10:16 10:16 10:16 WBC 6.6 (4.8-10.8) X10*3/uL RBC 4.32 (4.20-5.50) X10*6/uL Hgb 12.3 (12.0-16.0) g/dl Hct 37.7 (37.0-47.0) % MCV 87.3 (80.0-98.0) fL MCH 28.5 (27.0-33.0) pg MCHC 32.6 (31.0-35.0) g/dl RDW 13.6 (11.0-16.0) % Plt Count 261 (160-400) X10*3/uL MPV 10.0 (9.4-12.3) fL Immature Gran % (Auto) 0.3 (0.0-0.4) % Neut % (Auto) 65.7 (45-73) % Lymph % (Auto) 25.1 (20-40) % [place] % (Auto) 6.8 (2-11) % Eos % (Auto) 1.8 (0-4) % Baso % (Auto) 0.3 (0-2) % Lymph # (Auto) 1.7 (1.2-4.9) X10*3/uL [place] # (Auto) 0.5 (0.1-1.2) X10*3/uL Eos # (Auto) 0.1 (0.0-0.4) X10*3/uL Baso # (Auto) 0.0 (0.0-0.2) X10*3/uL Abs Immat Gran (auto) 0.02 (0.00-0.03) X10*3/uL Absolute Neuts (auto) 4.3 (2.0-8.3) x10*3/uL Absolute Nucleated RBC 0.000 (0.0-0.012) X10*3/uL Nucleated RBC % (auto) 0.0 (0.0-0.2) /100WBC PT (11.1-13.3) SEC INR (0.9-1.1) D-Dimer High Sensitivty NG/ML Sodium 140 (135-145) mmol/L Potassium 4.4 (3.3-5.1) mmol/L Chloride 107 (96-108) mmol/L Carbon Dioxide 23 (22-29) mmol/L Anion Gap 14 (12-20) BUN 8 L (9-16) mg/dL Creatinine 0.83 (0.5-1.4) mg/dL Estim Creat Clear Calc 132.0 Estimated GFR > 60 Random Glucose 95 (60-115) mg/dL Calcium 9.8 D (8.4-10.2) mg/dL Magnesium (1.6-2.6) mg/dL Total Bilirubin (0.0-1.0) mg/dL Direct Bilirubin (0.0-0.5) mg/dL AST (5-31) U/L ALT (0-31) U/L Alkaline Phosphatase (39-117) U/L Troponin I High Sens < 2.7 (<3.5-17.0) ng/L Total Protein (6.5-8.0) g/dL Albumin (3.5-5.0) g/dL TSH (0.32-4.0) uIU/mL 01/01/23 01/01/23 Range/Units 10:16 10:16 WBC (4.8-10.8) X10*3/uL RBC (4.20-5.50) X10*6/uL Hgb (12.0-16.0) g/dl Hct (37.0-47.0) % MCV (80.0-98.0) fL MCH (27.0-33.0) pg MCHC (31.0-35.0) g/dl RDW (11.0-16.0) % Plt Count (160-400) X10*3/uL MPV (9.4-12.3) fL Immature Gran % (Auto) (0.0-0.4) % Neut % (Auto) (45-73) % Lymph % (Auto) (20-40) % [place] % (Auto) (2-11) % Eos % (Auto) (0-4) % Baso % (Auto) (0-2) % Lymph # (Auto) (1.2-4.9) X10*3/uL [place] # (Auto) (0.1-1.2) X10*3/uL Eos # (Auto) (0.0-0.4) X10*3/uL Baso # (Auto) (0.0-0.2) X10*3/uL Abs Immat Gran (auto) (0.00-0.03) X10*3/uL Absolute Neuts (auto) (2.0-8.3) x10*3/uL Absolute Nucleated RBC (0.0-0.012) X10*3/uL Nucleated RBC % (auto) (0.0-0.2) /100WBC PT 12.4 (11.1-13.3) SEC INR 1.0 (0.9-1.1) D-Dimer High Sensitivty 223 NG/ML Sodium (135-145) mmol/L Potassium (3.3-5.1) mmol/L Chloride (96-108) mmol/L Carbon Dioxide (22-29) mmol/L Anion Gap (12-20) BUN (9-16) mg/dL Creatinine (0.5-1.4) mg/dL Estim Creat Clear Calc Estimated GFR Random Glucose (60-115) mg/dL Calcium (8.4-10.2) mg/dL Magnesium 1.9 (1.6-2.6) mg/dL Total Bilirubin 0.5 (0.0-1.0) mg/dL Direct Bilirubin 0.2 (0.0-0.5) mg/dL AST 25 (5-31) U/L ALT 31 (0-31) U/L Alkaline Phosphatase 59 (39-117) U/L Troponin I High Sens (<3.5-17.0) ng/L Total Protein 7.1 (6.5-8.0) g/dL Albumin 4.0 (3.5-5.0) g/dL TSH 0.83 (0.32-4.0) uIU/mL Independent Interpretation I performed an independent interpretation of an: EKG and Plain X-Ray Interpretation: I independently reviewed the chest x-ray and agree with radiologist's report. I independently reviewed the EKG which shows normal sinus rhythm with a rate 82, normal SC, normal QRS, normal QT, T-wave inversions in leads 3, V1 and V3 Radiology Impression Discussion of test interpretation with radiology: I have reviewed the radiologist's reading. Radiologist Impression: [place] [id number] XRay Report Signed Patient: Slava Oviedo MR#: [id number] : 2000 Acct:[id number] Age/Sex: 22 / F ADM Date: 01/01/23 Loc: .ED Attending Dr: Ordering Physician: Sherine Mir NP Date of Service: 01/01/23 Procedure(s): XR chest 2V Accession Number(s): [id number] cc: Sherine Mir NP~ EXAMINATION: XR CHEST CLINICAL INFORMATION: Chest pain, shortness of breath, dizziness. COMPARISON: None available. TECHNIQUE: 2 views of the chest were obtained. FINDINGS: No significant abnormality is noted involving the heart, lungs, mediastinum, bony thorax or soft tissues. XR/XR chest 2V IMPRESSION: No acute cardiopulmonary process. Independent Historian Clinical information obtained from an independent historian. History obtained from or confirmed by: Parent Mom is at the bedside. I did obtain some clinical information from her and confirmed this with the patient Discharge Plan Discharge Clinical Impression: Chest pain Patient Disposition: Home, Self-Care Instructions: Chest Pain (ED) Additional Instructions: Your blood work, EKG and x-ray are reassuring Please establish a primary care doctor in follow-up with them at Continue your home medications. Keep your appointment with your psychiatrist on January 20 at 14:30 Return for worsening symptoms Prescriptions: No Action clonidine HCl 0.1 mg Tablet 0.05 mg PO BEDTIME 30 Days Qty: 15 0RF Protocol: Hold for SBP< HOLD for SBP < : 90 ziprasidone HCl 20 mg Capsule 20 mg PO BIDWM 30 Days Qty: 60 0RF escitalopram oxalate 20 mg Tablet 20 mg PO DAILY 30 Days Qty: 30 0RF hydroxyzine HCl 25 mg Tablet 25 mg PO TID PRN (Reason: Anxiety) 30 Days Qty: 90 0RF
[2023-01-01 10:51] LABS: Troponin-I High Sensitivity < 2.7 ng/L (<3.5-17.0)
[2023-01-01 11:00] LABS: D Dimer High Sensitivity 223 NG/ML
[2023-01-01 11:24] LABS: TSH reflex Free T4 0.83 uIU/mL (0.32-4.0)
--- NOTE | 2023-01-01 11:56 | MHC.CARE ---
Consult requested by care team as patient presented to ED with anxiety over taking her Ziprasidone (geodon) . Patient reports she is confused as her medication is prescribed BIDWM, however she reports her counselor told her to take 2 tabs at night. She reports she was taking two tabs at night and feels it was making her manic and increasing her anxiety. Patent reports she attempted to go to walk in clinic at [facility], however they were not helpful and her current medication prescriber is on vacation. CARE team called pharmacy and [facility], both report patient is prescribed the medication as BIDWM and should take medications as prescribed. [facility] reports patients prescriber is currently on vacation. [facility] instructed patient to call [phone] if she has any further questions about her medications or if she needs support, [facility] confimred patient has an appointment with her prescriber Dr. Leonid Bocanegra on 01/20/23 @ 2:30 and can discuss additional medication questions at her appt.
[2023-01-01 12:04] VITALS: BP 116/68; PULSE 77; RESP 18; O2SAT 99
== END 2023-01-01 12:21 | disposition home or self-care (01) ==
PROVIDERS: Nurse Practitioner Family; Emergency Provider Emergency Medicine Emergency Medical Services
DX: R07.89 Other chest pain (principal); R06.02 Shortness of breath; R42 Dizziness and giddiness; Z79.899 Other long term (current) drug therapy
CPT/HCPCS: 36415; 71046; 80048; 80076; 83735; 84443; 84484; 85025; 85379; 85610; 93005; 99283; 99284; 99285

== ENCOUNTER → 2023-01-01 09:28 | Outpatient (BNV) | payer MEDICAID, SELFPAY | PROVIDERS: Emergency Provider Emergency Medicine Emergency Medical Services; Visit Provider Internal Medicine Cardiovascular Disease | DX: R07.9 Chest pain, unspecified (principal) | CPT/HCPCS: 93010 ==

== ENCOUNTER 2023-06-24 10:19 | Outpatient (REF) | payer MEDICAID, SELFPAY ==
[2023-06-24 11:29] LABS: Hemoglobin 12.5 g/dl (12.0-16.0); Mean Corpuscular HGB Conc 32.1 g/dl (31.0-35.0); Mean Corpuscular Hemoglobin 28.2 pg (27.0-33.0); Mean Corpuscular Volume 87.8 fL (80.0-98.0); Mean Platelet Volume 10.7 fL (9.4-12.3); Platelet Count 299 X10*3/uL (160-400); Red Blood Count 4.44 X10*6/uL (4.20-5.50); Red Cell Distribution Width 13.7 % (11.0-16.0); White Blood Count 7.2 X10*3/uL (4.8-10.8)
[2023-06-24 11:39] LABS: Estimated Average Glucose 103 mg/dL; Hemoglobin A1c % 5.2 % (<6.0)
[2023-06-24 12:19] LABS: Alanine Aminotransferase 19 U/L (0-31); Albumin Level 4.1 g/dL (3.5-5.0); Alkaline Phosphatase 45 U/L (39-117); Anion Gap 14 (12-20); Aspartate Amino Transferase 14 U/L (5-31); Bilirubin Total 0.3 mg/dL (0.0-1.0); Blood Urea Nitrogen 10 mg/dL (9-16); Calcium 9.6 mg/dL (8.4-10.2); Carbon Dioxide 24 mmol/L (22-29); Chloride 106 mmol/L (96-108); Cholesterol 113 mg/dL (<200); Estimated Glomerular Filt Rate > 60; Glucose Random 126 mg/dL (60-115); HDL Cholesterol 42 mg/dL (>40); LDL Cholesterol Calculated 38 mg/dL (<100); Potassium 3.9 mmol/L (3.3-5.1); Sodium 140 mmol/L (135-145); Total Protein 7.4 g/dL (6.5-8.0); Triglycerides 167 mg/dL (<150)
[2023-06-24 12:29] LABS: HBc Num1 0.13 S/CO (0.00-0.79); HBsAGNum1 0.24 S/CO (0.00-0.99); HIV AB/AG Nonreactive (Nonreactive); HIV Num 1 0.12 S/CO (0.00-0.99); Hepatitis B Core Antibody Nonreactive (Nonreactive); Hepatitis B Surface Antigen Negative (Negative); Syphilis Screen Nonreactive (Nonreactive); ~HepC Num1 0.12 S/CO (0.00-0.79); ~Hepatitis B Surface Antibody NONREACTIVE (Nonreactive); ~Hepatitis C Antibody Nonreactive (Nonreactive)
[2023-06-24 12:37] LABS: TSH reflex Free T4 1.07 uIU/mL (0.32-4.0); Vitamin D 25-OH Total 31.1 ng/mL (>30)
== END 2023-06-24 10:20 | disposition home or self-care (01) ==
LOC: HO.HHCL 10:19
PROVIDERS: Visit Provider Student in an Organized Health Care Education/Training Program
DX: Z00.00 Encounter for general adult medical examination without abnormal findings (principal); Z11.4 Encounter for screening for human immunodeficiency virus [HIV]
CPT/HCPCS: 36415; 80053; 80061; 82306; 83036; 84443; 85027; 86704; 86706; 86780; 86803; 87340; 87389

== ENCOUNTER 2023-06-29 14:46 | Outpatient (REF) | payer MEDICAID, SELFPAY ==
--- NOTE | ~2023-06-29 | US_ITS ---
EXAMINATION: US PELVIS CLINICAL INFORMATION: Patient with history of dysmenorrhea and PCOS LMP: Presently COMPARISON: None available. TECHNIQUE: Ultrasound of the pelvis is performed using both transabdominal and transvaginal transducers along with Doppler. Transvaginal imaging is performed due to inadequate visualization transabdominally. FINDINGS: Uterus: The uterus is retroverted and measures 7.2 x 3.8 x 5.2 cm. No focal fibroid. The endometrial thickness is 1.3 cm. The endometrial stripe is heterogeneous, possibly secondary to current menses. Adnexa: Both ovaries are visualized. There is normal color flow to the adnexa. There is no ovarian torsion. There is no pelvic ascites or fluid collection. Right ovary measures 1.6 x 2.7 x 1.4 cm. Volume 3.2 mL. Left ovary measures 1.3 x 2.1 x 1.2 cm. Volume 1.7 mL. Both ovaries contain multiple subcentimeter peripheral follicles. US/US pelvic and transvaginal IMPRESSION: 1. Normal uterus. 2. Heterogeneous endometrial stripe is likely due to patient's current menses. 3. Small ovaries with multiple subcentimeter peripheral follicles.
== END 2023-06-29 14:47 | disposition home or self-care (01) ==
LOC: HO.US 14:46
PROVIDERS: PCP Student in an Organized Health Care Education/Training Program; Visit Provider Student in an Organized Health Care Education/Training Program
DX: E28.2 Polycystic ovarian syndrome (principal)
CPT/HCPCS: 76830; 76856

== ENCOUNTER 2023-07-20 16:46 | Outpatient (REF) | payer MEDICAID, SELFPAY ==
[2023-07-21 21:19] LABS: C. trachomatis RNA TMA NOT DETECTED (NOT DETECTED); Candida glabrata RNA NOT DETECTED (NOT DETECTED); Candida species RNA NOT DETECTED (NOT DETECTED); N. gonorrhoeae RNA TMA NOT DETECTED (NOT DETECTED); Trichomonas vaginalis RNA NOT DETECTED (NOT DETECTED)
== END 2023-07-20 16:47 | disposition home or self-care (01) ==
LOC: HO.HHCLNP 16:46
PROVIDERS: Visit Provider Advanced Practice Midwife
DX: N89.8 Other specified noninflammatory disorders of vagina (principal)
CPT/HCPCS: 36415; 81513; 87481; 87491; 87591; 87661; 88142

== ENCOUNTER 2024-04-15 04:41 | Emergency (ER) | payer OTHER, SELFPAY ==
--- NOTE | ~2024-04-15 | US_ITS ---
EXAMINATION: US PELVIS CLINICAL INFORMATION: Vaginal bleeding for one month. COMPARISON: Ultrasound dated June 29, 2023. TECHNIQUE: Ultrasound of the pelvis is performed using both transabdominal and transvaginal transducers along with Doppler. Transvaginal imaging is performed due to inadequate visualization transabdominally. FINDINGS: Uterus: The uterus is anteverted and measures 7 x 3 x 6 cm. No solid or cystic lesion The double wall endometrial thickness is 7.0 mm. The uterus is smooth in contour and has normal myometrial echogenicity. Adnexa: Both ovaries are visualized. There is normal color flow to the adnexa. There is no ovarian torsion. There is no pelvic ascites or fluid collection. Right ovary measures 2 x 2 x 2 cm. Volume is 2 cc. Left ovary measures 3 x 1 x 1 cm. Volume is 3 cc. US/US pelvic and transvaginal IMPRESSION: No ovarian torsion. Endometrial stripe measures 7 mm. No gross uterine fibroid. Electronically signed by: Simeon Johnson MD 04/15/2024 10:04 AM CIELO
[2024-04-15 04:51] VITALS: BP 120/74; PULSE 88; RESP 16; TEMP 36.5; O2SAT 98; BMI 33.4
[2024-04-15 05:17] LABS: Basophils Percent Auto 0.3 % (0-2); Eosinophils Absolute Auto 0.2 X10*3/uL (0.0-0.4); Eosinophils Percent Auto 3.2 % (0-4); Hematocrit 35.4 % (37.0-47.0); Hemoglobin 11.6 g/dl (12.0-16.0); Imm Gran Abs Auto 0.01 X10*3/uL (0.00-0.03); Imm Gran Pct Auto 0.1 % (0.0-0.4); Lymphocytes Absolute Auto 3.3 X10*3/uL (1.2-4.9); Lymphocytes Percent Auto 48.1 % (20-40); MANUAL DIFF FLAG NO; Mean Corpuscular HGB Conc 32.8 g/dl (31.0-35.0); Mean Corpuscular Hemoglobin 28.9 pg (27.0-33.0); Mean Corpuscular Volume 88.3 fL (80.0-98.0); Mean Platelet Volume 9.4 fL (9.4-12.3); Monocytes Absolute Auto 0.4 X10*3/uL (0.1-1.2); Monocytes Percent Auto 5.7 % (2-11); Neutrophils Absolute Auto 2.9 x10*3/uL (2.0-8.3); Neutrophils Percent Auto 42.6 % (45-73); Platelet Count 278 X10*3/uL (160-400); Red Blood Count 4.01 X10*6/uL (4.20-5.50); Red Cell Distribution Width 13.2 % (11.0-16.0); White Blood Count 6.8 X10*3/uL (4.8-10.8)
[2024-04-15 05:28] LABS: Anion Gap 14 (12-20); Blood Urea Nitrogen 12 mg/dL (9-16); Calcium 9.1 mg/dL (8.4-10.2); Carbon Dioxide 20 mmol/L (22-29); Chloride 109 mmol/L (96-108); Creatinine Clr Calc Pharmacy 134.5; Estimated Glomerular Filt Rate > 60; Glucose Random 94 mg/dL (60-115); Potassium 4.1 mmol/L (3.3-5.1); Sodium 139 mmol/L (135-145)
[2024-04-15 06:05] LABS: Appearance Urine Cloudy; Color Urine Dark Yellow; Glucose Urine UA Negative (Negative); Leukocyte Esterase Urine Negative (Negative); Nitrite Urine Negative (Negative); PH 5.5 (5.0-9.0); Specific Gravity - Urine >= 1.030 (1.005-1.025); UMIC TRIGGER UACC YES; Urine Blood Trace (Negative); Urine Ketones Negative (Negative); Urine Protein 30 (1+) mg/dL (Neg-Trace)
[2024-04-15 06:10] LABS: UPreg QC Valid YES; Urine Pregnancy NEGATIVE (NEGATIVE)
--- NOTE | 2024-04-15 06:32 | ED.GENADULT ---
HPI - General Adult General Chief complaint: General Medical Stated complaint: vaginal bleeding Time Seen by Provider: 04/15/24 05:00 Source: patient Mode of arrival: ambulatory Limitations: no limitations History of Present Illness ED Provider: Lizandro ARCINIEGA narrative: Patient is a 23-year-old female with history of borderline personality disorder, anxiety, depression, PCOS presenting to the emergency department with complaint of lower abdominal cramping and ongoing vaginal bleeding/spotting since her last menstrual period which was in March. States that her bleeding is mainly internal, when asked to specify, patient notes that if she inserts a finger into her vaginal canal, there is blood on her finger afterwards. Notes small amount of dark red/brown spotting. Lower abdominal cramping which she currently rates at 08/15. Denies any recent intercourse or concern for STIs. [facility]. Denies dizziness, lightheadedness, syncope. Denies concern for . Denies any other abnormal vaginal discharge. Currently on OCPs. MD complaint: vaginal bleeding Onset (ago): week(s) Location: abdomen Radiation: non-radiation Severity scale (1-10): 3 Quality: aching Pain Consistency: colicky Treatments prior to arrival: none Related Data Previous Rx's ?Medication ?Instructions ?Recorded clonidine HCl 0.1 mg tablet 0.05 mg PO BEDTIME 30 days #15 tabs 09/04/22 escitalopram oxalate 20 mg tablet 20 mg PO DAILY 30 days #30 tabs 09/04/22 hydroxyzine HCl 25 mg tablet 25 mg PO TID PRN Anxiety 30 days 09/04/22 #90 tabs ziprasidone HCl 20 mg capsule 20 mg PO BIDWM 30 days #60 caps 09/04/22 Allergies Allergy/AdvReac Type Severity Reaction Status Date / Time insect venom Allergy Swelling Verified 04/15/24 04:54 Penicillins Allergy Nausea Verified 04/15/24 04:54 Review of Systems Review of Systems: As per HPI Yes all other systems are reviewed and are negative Constitutional: Constitutional: Reports as per HPI [facility] Past Medical History Medical History (Updated 04/15/24 @ 10:13 by Francie Bone NP) Anxiety and depression Borderline personality disorder Social History Social History (System 03/24/23 @ 12:56 by Nisa Houston) Household Members: Family Housing: House Do you presently have visiting nurse or other home services: No Alcohol intake: current Alcohol intake frequency: does not drink Patient Tobacco Use Status: Never used Tobacco Smoked in Last 30 Days: No Use of substances other than those prescribed or required for medical reasons: No Substance Use Type: Marijuana Advance Directives: No Advance Directives Information Provided: No Do you have a plan to hurt others: No Plan Patient : No service: No Sexual orientation: Don't Know Physical Exam ED Vital Signs: Vital Signs - 24 hr 04/15/24 04:51 04/15/24 06:49 Temperature 97.7 F 97.8 F Pulse Rate 88 70 Respiratory Rate 16 16 Blood Pressure 120/74 113/60 Pulse Oximetry 98 99 Oxygen Delivery Method Room Air Room Air BMI result Body Mass Index 33.4 Vital signs have been reviewed and appear to be correct. Blood pressure normal. Heart rate normal. Respiratory rate normal. Temperature normal. Oxygen saturation normal. Const General: cooperative, healthy appearing and no acute distress Orientation/consciousness: oriented to person, oriented to place, oriented to time and patient oriented x3 Limitations: no limitations HENMT Head: Yes normocephalic and Yes atraumatic Ears: external ears normal General nose exam: Normal external nose present Face and sinus: Yes face symmetric Mouth: oropharynx normal and moist mucous membranes Throat: Yes uvula midline Eyes Pupils: Equal, round and reactive pupils present Neck Neck: Yes normal visual inspection and Yes supple Resp Effort & Inspection: normal respiratory effort and able to speak in complete sentences Auscultation: clear to auscultation bilaterally Cardio Rate: regular rate Rhythm: regular rhythm Heart sounds: S1 normal heart sound present and S2 normal heart sound present GI Palpation (GI): Soft to palpation and nontender Auscultation: normoactive bowel sounds General: Yes no CVA tenderness Back/Spine/Pelvis Back: no CVA tenderness Skin General skin exam: elasticity normal and turgor normal Neuro General: oriented to person, oriented to place, oriented to time, patient oriented x3, moves all extremities, no focal motor deficits and CN's II-XI intact bilaterally Cranial nerves: Yes Equal, round and reactive pupils present Cognition (Neuro): normal cognition Extrem General: Yes full ROM, Yes no pedal edema and Yes no calf tenderness Psych Mental Status: mental status grossly normal Affect: normal affect Thought process: Normal thought process present Medical Decision Making Medical Decision Making MDM Narrative: Patient is a 23-year-old female with history of borderline personality disorder, anxiety, depression, PCOS presenting to the emergency department with complaint of lower abdominal cramping and ongoing vaginal bleeding/spotting since her last menstrual period which was in March. On exam patient is awake, A+Ox3, VS WNL, afebrile, normal neurological exam without focal deficits, physical exam findings as above. Given reported symptoms and physical exam findings, initial differential includes dysfunctional uterine bleeding, uterine leiomyoma, ruptured ovarian cyst, , threatened , STI. Less likely ovarian torsion as symptoms ongoing >1 month and pain is mild at this time. Labs notable for stable H&H, negative . No evidence of infection on urinalysis. Ultrasound notable for no evidence of fibroid, no other concerning findings. My interpretation is in agreement with the radiologist's interpretation. Patient all questions answered. Instructed [facility]. Return precautions discussed at bedside. Patient verbalized understanding of and agreement with plan. Differential Diagnosis Differential Diagnoses: The differential diagnosis associated with the presentation includes as per [facility] Admission/Observation Consideration of admission/observation: Escalation of care including admission/observation considered Patient would have been admitted to the hospital had their work up had any findings where hospital admission was appropriate and their clinical presentation warranted hospital admission. Lab Data [facility] Lab Attestation statement: I reviewed the patient's lab results. as per [facility] 04/15/24 05:10 04/15/24 05:10 Labs: Lab Results 04/15/24 04/15/24 Range/Units 05:10 05:53 WBC 6.8 (4.8-10.8) X10*3/uL RBC 4.01 L (4.20-5.50) X10*6/uL Hgb 11.6 L (12.0-16.0) g/dl Hct 35.4 L (37.0-47.0) % MCV 88.3 (80.0-98.0) fL MCH 28.9 (27.0-33.0) pg MCHC 32.8 (31.0-35.0) g/dl RDW 13.2 (11.0-16.0) % Plt Count 278 (160-400) X10*3/uL MPV 9.4 (9.4-12.3) fL Immature Gran % (Auto) 0.1 (0.0-0.4) % Neut % (Auto) 42.6 L (45-73) % Lymph % (Auto) 48.1 H (20-40) % [place] % (Auto) 5.7 (2-11) % Eos % (Auto) 3.2 (0-4) % Baso % (Auto) 0.3 (0-2) % Lymph # (Auto) 3.3 (1.2-4.9) X10*3/uL [place] # (Auto) 0.4 (0.1-1.2) X10*3/uL Eos # (Auto) 0.2 (0.0-0.4) X10*3/uL Baso # (Auto) 0.0 (0.0-0.2) X10*3/uL Abs Immat Gran (auto) 0.01 (0.00-0.03) X10*3/uL Absolute Neuts (auto) 2.9 (2.0-8.3) x10*3/uL Absolute Nucleated RBC 0.000 (0.0-0.012) X10*3/uL Nucleated RBC % (auto) 0.0 (0.0-0.2) /100WBC Sodium 139 (135-145) mmol/L Potassium 4.1 (3.3-5.1) mmol/L Chloride 109 H (96-108) mmol/L Carbon Dioxide 20 L (22-29) mmol/L Anion Gap 14 (12-20) BUN 12 (9-16) mg/dL Creatinine 0.79 (0.5-1.4) mg/dL Estim Creat Clear Calc 134.5 Estimated GFR > 60 Random Glucose 94 (60-115) mg/dL Calcium 9.1 (8.4-10.2) mg/dL Urine Color Dark Yellow Urine Appearance Cloudy Urine pH 5.5 (5.0-9.0) Ur Specific [place] >= 1.030 H (1.005-1.025) Urine Protein 30 (1+) H (Neg-Trace) mg/dL Urine Glucose (UA) Negative (Negative) mg/dL Urine Ketones Negative (Negative) mg/dL Urine Blood Trace H (Negative) Urine Nitrite Negative (Negative) Ur Leukocyte Esterase Negative (Negative) Urine RBC 3-5 H (0-2) /HPF Urine WBC 0-5 (0-5) /HPF Ur Squamous Epith Cells 6-10 (0-2) /HPF Urine Bacteria None Seen (None Seen) Hyaline Casts 0-2 (0-2) /LPF Urine Test NEGATIVE (NEGATIVE) Independent Interpretation I performed an independent interpretation of an: Ultrasound Interpretation: Ultrasound notable for no evidence of fibroid, no other concerning findings Radiology Impression Discussion of test interpretation with radiology: I have reviewed the radiologist's reading. Radiologist Impression: US/US pelvic and transvaginal IMPRESSION: No ovarian torsion. Endometrial stripe measures 7 mm. No gross uterine fibroid. External Record Review External record reviewed: Inpatient record, Office record and Outpatient record Discharge Plan Discharge Clinical Impression: DUB (dysfunctional uterine bleeding) Patient Disposition: Home, Self-Care Instructions: Dysfunctional Uterine Bleeding (ED) Additional Instructions: You were evaluated in the emergency department today for vaginal bleeding. Your evaluation did not show evidence of conditions requiring emergent treatment at this time. We recommend that you follow up with [facility] or another AUTOMOBILE SEAT COVER INSTALLER. Return to the emergency department if you are bleeding through more than one tampon/pad per hour, develop worsening pain, have dizziness/lightheadedness/fainting, or any other concerning symptoms. Prescriptions: No Action clonidine HCl 0.1 mg Tablet 0.05 mg PO BEDTIME 30 Days Qty: 15 0RF Protocol: Hold for SBP< HOLD for SBP < : 90 ziprasidone HCl 20 mg Capsule 20 mg PO BIDWM 30 Days Qty: 60 0RF escitalopram oxalate 20 mg Tablet 20 mg PO DAILY 30 Days Qty: 30 0RF hydroxyzine HCl 25 mg Tablet 25 mg PO TID PRN (Reason: Anxiety) 30 Days Qty: 90 0RF Referrals: Luis M Banda MD [Physician] - Print Language: Luxembourgish
[2024-04-15 06:33] LABS: Bacteria Urine None Seen (None Seen); Hyaline Casts Urine 0-2 /LPF (0-2); WBC Urine 0-5 /HPF (0-5)
[2024-04-15 06:49] VITALS: BP 113/60; PULSE 70; RESP 16; TEMP 36.6; O2SAT 99
--- NOTE | 2024-04-15 07:35 | PC.NURSE ---
pt to ultrasound at this time. will resume care of pt when she returns.
[2024-04-15 10:23] VITALS: BP 124/68; PULSE 76; RESP 16; TEMP 36.7; O2SAT 99
== END 2024-04-15 10:30 | disposition home or self-care (01) ==
PROVIDERS: Emergency Medicine; Emergency Provider Emergency Medicine
DX: N93.8 Other specified abnormal uterine and vaginal bleeding (principal)
CPT/HCPCS: 36415; 76830; 76856; 80048; 81001; 81025; 85025; 99284

== ENCOUNTER → 2024-04-15 06:44 | Outpatient (BNV) | payer OTHER, SELFPAY | PROVIDERS: Emergency Provider Emergency Medicine; Visit Provider Radiology Diagnostic Radiology | DX: N93.9 Abnormal uterine and vaginal bleeding, unspecified (principal) | CPT/HCPCS: 76856 ==

== ENCOUNTER 2024-06-13 17:16 | Outpatient (REF) | payer OTHER, SELFPAY ==
[2024-06-14 13:30] LABS: Bacterial Vaginosis PCR NEGATIVE (Negative); Candida Group PCR NOT DETECTED (Not Detect); Candida glab krusei PCR NOT DETECTED (Not Detect); Trichomonas vaginalis PCR NOT DETECTED (Not Detect)
== END 2024-06-13 17:17 | disposition home or self-care (01) ==
LOC: HO.HHCLNP 17:16
PROVIDERS: Visit Provider Advanced Practice Midwife
DX: N89.8 Other specified noninflammatory disorders of vagina (principal)
CPT/HCPCS: 81515

== ENCOUNTER 2024-09-19 15:14 | Outpatient (REF) | payer MEDICAID, SELFPAY ==
[2024-09-19 15:31] LABS: MANUAL DIFF FLAG NO
[2024-09-19 15:39] LABS: Basophils Percent Auto 0.3 % (0-2); Eosinophils Absolute Auto 0.2 X10*3/uL (0.0-0.4); Eosinophils Percent Auto 2.5 % (0-4); Hematocrit 41.5 % (37.0-47.0); Hemoglobin 13.3 g/dl (12.0-16.0); Imm Gran Abs Auto 0.02 X10*3/uL (0.00-0.03); Imm Gran Pct Auto 0.3 % (0.0-0.4); Lymphocytes Absolute Auto 2.1 X10*3/uL (1.2-4.9); Lymphocytes Percent Auto 27.5 % (20-40); Mean Corpuscular Volume 90.4 fL (80.0-98.0); Monocytes Absolute Auto 0.5 X10*3/uL (0.1-1.2); Monocytes Percent Auto 7.1 % (2-11); Neutrophils Absolute Auto 4.7 x10*3/uL (2.0-8.3); Neutrophils Percent Auto 62.3 % (45-73); Platelet Count 287 X10*3/uL (160-400); Red Blood Count 4.59 X10*6/uL (4.20-5.50); Red Cell Distribution Width 13.2 % (11.0-16.0); White Blood Count 7.5 X10*3/uL (4.8-10.8)
[2024-09-19 15:47] LABS: Estimated Average Glucose 105 mg/dL; Hemoglobin A1C 124.6311 umol/L; Hemoglobin A1c % 5.3 % (<6.0); Total Hemoglobin (HGBA1C) 3577.7463 umol/L
[2024-09-19 16:43] LABS: Alanine Aminotransferase 36 U/L (0-31); Albumin Level 4.3 g/dL (3.5-5.0); Alkaline Phosphatase 51 U/L (39-117); Anion Gap 12 (12-20); Aspartate Amino Transferase 27 U/L (5-31); Bilirubin Total 0.4 mg/dL (0.0-1.0); Blood Urea Nitrogen 9 mg/dL (9-16); Calcium 9.6 mg/dL (8.4-10.2); Carbon Dioxide 24 mmol/L (22-29); Chloride 109 mmol/L (96-108); Cholesterol 145 mg/dL (<200); Estimated Glomerular Filt Rate > 60; Glucose Random 94 mg/dL (60-115); HDL Cholesterol 56 mg/dL (>40); LDL Cholesterol Calculated 71 mg/dL (<100); Potassium 4.1 mmol/L (3.3-5.1); Sodium 141 mmol/L (135-145); Total Protein 7.3 g/dL (6.5-8.0); Triglycerides 93 mg/dL (<150)
[2024-09-19 16:50] LABS: Thyroid Stimulating Hormone 0.39 uIU/mL (0.32-4.0); Vitamin D 25-OH Total 36.9 ng/mL (>30)
--- OUTSIDE RECORDS SUMMARY | 2024-09-19 17:46 | XMS_ITS | Encounter Summary ---
Author Organization [employer] Address [address] [place] [address] Care Team Providers Care Customer Solutions Supervisor Name Role Phone Shelbie Turner MD Primary Care Pro vider Reason for Visit * Reason Comments Med Refill Encounter Details Date Type Department Care Team (Late Contact Info) Description 08/11/2024 Refill [facility] MEDICINE [address] [place] [address] [phone] Kizzy Ramires CNM [address] [place], [place] [phone] Social History Tobacco Use Types Packs/Day Years Used Date Smoking Tobacco: Never Passive Smoke Exposure: Never Smokeless Tobacco: Never Alcohol Use Standard Drinks/Week Comments Not Currently 0 (1 standard drink = 0.6 oz pur e alcohol) social Depression Answer Date Recorded Patient Health Questionnaire-9 Score 5 06/24/2023 Patient Health Questionnaire-9 Score 5 06/24/2023 Last PHQ-9: Questionnaire Data Not on file 0 06/24/2023 Depression Answer Date Recorded Patient Health Questionnaire-2 Score 2 06/24/2023 Comments No Sex and Gender Information Value Date Recorded Sex Assigned at Female 02/05/2023 2:14 PM EDT Legal Sex Female 2:12 PM EDT Gender Identity Non-Binary 05/06/2023 11:24 AM EST Sexual Orientation Queer 05/06/2023 11 :24 AM EST documented as of this encounter Plan of Treatment Upcoming Encounters Date Type Department Care Team (Late st Contact Info) Description 09/23/2024 10:00 AM EDT Office Visit [facility] MEDICINE [address] [place] [address] [phone] Shelbie Turner MD [address] [place] [address] 10/07/2024 2:00 PM EDT Clinical Support [facility] DIABETES/NUTRITION [address] [place], [place] [phone] Imani Dewey [address] [place], [place] [phone] documented as of this encounter Visit Diagnoses Not on filedocumented in this encounter Additional Health Concerns Assessment Noted Time PHQ-9 Depression Total Score: 5 06/24/19 24 9:23 AM EST documented as of this encounter Care Teams Customer Solutions Supervisor Relationship Specialty Start Date End Date Shelbie Turner MD [address] [place], [place] [phone] PCP - General Internal Medicine 06/26/23 documented as of this encounter
--- OUTSIDE RECORDS SUMMARY | 2024-09-19 17:46 | XMS_ITS | Encounter Summary ---
Author Organization [employer] Address [address] [place] [address] [place] [address] Care Team Providers Care Advertisement Distributor Name Role Phone Shelbie Turner MD Primary Care Pro vider Reason for Visit * Reason Onset Date Comments chart prep 09/19/2024 Encounter Details Date Type Department Care Team ([facility] st Contact Info) Description 09/19/2024 Telephone [facility] MEDICINE [address] [place], [place] [phone] Shelbie Turner MD [address] [place], [place] [phone] chart prep Social History Tobacco Use Types Packs/Day Years [...] AM EST documented as of this encounter Miscellaneous Notes * Telephone Encounter - Basia Metz MA - 09/19/2024 10:48 AM EDT ..Chart Prep Labs: not applicable Images: not applicable Vaccines due: Covid Due Referrals: Completed Screenings: Not Applicable Overdue care gaps: Sbirt, SDOH, and PQ9 documented in this encounter Plan of Treatment Upcoming Encounters Date Type Department Care Team (Late st Contact Info) Description 09/23/2024 10:00 AM EDT Office Visit [facility] MEDICINE [address] [place] [address] Shelbie Turner MD [address] [place] [phone] 10/07/2024 2:00 PM EDT Clinical Support [facility] DIABETES/NUTRITION [address] [place] [phone] [place] [phone] documented as of this encounter Visit Diagnoses Not on filedocumented in this encounter Additional Health Concerns Assessment Noted Time PHQ-9 Depression Total Score: 5 06/24/19 24 9:23 AM EST documented as of this encounter Care Teams Advertisement Distributor Relationship Specialty Start Date End Date Shelbie Turner MD [address] [place] [address] [phone] PCP - General Internal Medicine 06/26/23 documented as of this encounter
--- OUTSIDE RECORDS SUMMARY | 2024-09-19 17:46 | XMS_ITS | Encounter Summary ---
Author Organization [employer] Address [address] [place] [address] Care Team Providers Care Credit And Collections Analyst Name Role Phone Shelbie Turner MD Primary Care Pro vider Reason for Referral * Consultation (Routine) - Authorized Specialty Diagnoses / Procedures Referred By Marline mcleod Referred To Contact Nutrition Diagnoses Class 2 obesity due to excess calories without serious comorbidity with body mass index (BMI) of 36.0 to 36.9 in adult Shelbie Turner MD [address] [place] [address] Phone: tel: fax: Referral ID Status Reason Start Date Expiration Date Visits Requested Visits Authorized [id number] Authorized Specialty Services Required 09/16/2024 09/16/2025 1 1 Encounter Details Date Type Department Care Team ([facility] st Contact Info) Description 09/16/2024 Orders Only [facility] MEDICINE [address] [place], [place] [phone] Shelbie Turner MD [address] [place], [place] [phone] Class 2 obesity due to excess calories without serious comorbidity with body mass index (BMI) of 36.0 to 36.9 in adult (Primary Dx) Social History Tobacco Use Types Packs/Day Years [...] Description 09/23/2024 10:00 AM EDT Office Visit [facility] MEDICINE [address] [place] [phone] Shelbie Turner MD [address] [place] [phone] 10/07/2024 2:00 PM EDT Clinical Support [facility] DIABETES/NUTRITION [address] [place] [phone] [place] [address] Scheduled Referrals Name Type Priority Associated Diagnoses Orde r Schedule Referral to Nutrition Services Outpatient Referral Routine Class 2 obesity due to excess calories without serious comorbidity with body mass index (BMI) of 36.0 to 36.9 in adult Expected: 09/16/2024 (Approximate), Expires: 09/16/2025 documented as of this encounter Visit Diagnoses Diagnosis Class 2 obesity due to excess calories without serious comorbidity with body mass index (BMI) of 36.0 to 36.9 in adult- Primary documented in this encounter Additional Health Concerns Assessment Noted Time PHQ-9 Depression Total Score: 5 06/24/19 24 9:23 AM EST documented as of this encounter Care Teams Credit And Collections Analyst Relationship Specialty Start Date End Date Shelbie Turner MD [address] [place] [phone] PCP - General Internal Medicine 06/26/23 documented as of this encounter
--- OUTSIDE RECORDS SUMMARY | 2024-09-19 17:46 | XMS_ITS | Encounter Summary ---
Author Organization [employer] Address [address] [place] [address] 7 [place] [address] Care Team Providers Care Nuclear Waste Process Operator Name Role Phone Shelbie Turner MD Primary Care Pro vider Reason for Visit * Reason Onset Date Comments New Patient 02/05/2023 Encounter Details Date Type Department Care Team ([facility] st Contact Info) Description 02/05/2023 Telephone [facility] MEDICINE [address] [place], [place] [phone] Mario Maciel MD [address] [place], [place] [phone] New Patient Social History Tobacco Use Types Packs/Day Years Used Date Smoking Tobacco: Never Assessed Comments Unknown Sex and Gender Information Value Date Recorded Sex Assigned at Female 02/05/2023 2:14 PM EDT Legal Sex Female 2:12 PM EDT Gender Identity Non-Binary 05/06/2023 11:24 AM EST Sexual Orientation Queer 05/06/2023 11 :24 AM EST documented as of this encounter Miscellaneous Notes * Telephone Encounter - James Gaytan - 05/06/2023 10:54 AM EST TC placed to pt . No answer/ left VM . * Telephone Encounter - Basil Savage - 03/12/2023 11:51 AM EDT Tc to Pt, to Offer Sheep Farm Manager appt, No Answer/Could not leave Vm due to I'm sorry the person your trying to reach, has voicemail box that not been set up yet,Goodbye. * Telephone Encounter - Basil Ramos Savage - 02/05/2023 2:17 PM EDT Pt has been transfer over to wait list for GYMNASTIC COACH. EFFECTIVE SINCE 02/05/2023 documented in this encounter Plan of Treatment Upcoming Encounters Date Type Department Care Team (Late st Contact Info) Description 09/23/2024 10:00 AM EDT Office Visit [facility] MEDICINE [address] [place] [address] Shelbie Turner MD [address] [place] [phone] 10/07/2024 2:00 PM EDT Clinical Support [facility] DIABETES/NUTRITION [address] [place] [address] [place] [address] documented as of this encounter Visit Diagnoses Not on filedocumented in this encounter Care Teams Nuclear Waste Process Operator Relationship Specialty Start Date End Date Shelbie Turner MD [address] [place] [phone] PCP - General Internal Medicine 06/26/23 documented as of this encounter
--- OUTSIDE RECORDS SUMMARY | 2024-09-19 17:46 | XMS_ITS | Encounter Summary ---
Author Organization [employer] Address [address] [place] [address] [address] [place] [address] Care Team Providers Care Blood Bank Order Control Clerk Name Role Phone Shelbie Turner MD Primary Care Pro vider Reason for Visit * Reason Onset Date Comments Referral 08/24/2024 Encounter Details Date Type Department Care Team ([facility] st Contact Info) Description 08/24/2024 Telephone [facility] MEDICINE [address] [place], [place] [phone] Shelbie Turner MD [address] [place], [place] [phone] Referral Social History Tobacco Use Types Packs/Day Years [...] encounter Miscellaneous Notes * Telephone Encounter - Kerry Arnold RN - 09/16/2024 2:12 PM EDT Spoke to Myla odonnell for link and link knitting machine operator regarding below message. She reports that pt follows with nutrition. They need a referral renewal with accepted ICD code for pt to continue seeing the link and link knitting machine operator. * Telephone Encounter - Sandra Torres RN - 08/24/2024 4:12 PM EDT TC placed to pt and LVM to call back the office regarding referral below * Telephone Encounter - Myla Gee - 08/24/2024 2:39 PM EDT Pt needs a new nutrition referral with Code E66.9 her Referral is already but will be seen on 08/29/24. PT WILL NOT BE LEAVING PRACTICE, JUST WANTS A PCP CHANGE. documented in this encounter Plan of Treatment Upcoming Encounters Date Type Department Care Team (Late st Contact Info) Description 09/23/2024 10:00 AM EDT Office Visit [facility] MEDICINE [address] [place] [phone] Shelbie Turner MD [address] [place] [phone] 10/07/2024 2:00 PM EDT Clinical Support [facility] DIABETES/NUTRITION [address] [place] [address] [place] [address] documented as of this encounter Visit Diagnoses Not on filedocumented in this encounter Additional Health Concerns Assessment Noted Time PHQ-9 Depression Total Score: 5 06/24/19 24 9:23 AM EST documented as of this encounter Care Teams Blood Bank Order Control Clerk Relationship Specialty Start Date End Date Shelbie Turner MD [address] [place] [phone] PCP - General Internal Medicine 06/26/23 documented as of this encounter
--- OUTSIDE RECORDS SUMMARY | 2024-09-19 17:46 | XMS_ITS | Clinical Summary ---
Author Organization [employer] Address [address] [facility] 7t [place] [address] Care Team Providers Care Interactive Video Technician Name Role Phone Shelbie Turner MD Primary Care Pro vider Allergies No known active allergies Medications cloNIDine (Catapres) 0.1 MG tablet TAKE 1/2 TABLET BY MOUTH 2 TIMES PER DAY NEEDED AXIETY 3 Active escitalopram (Lexapro) 20 MG tablet Take 20 mg by mouth in the morning. 3 Active hydrOXYzine HCl (Atarax) 25 MG tablet Take 25 mg by mouth every 8 (eight) hours if needed. 3 Active ziprasidone (Geodon) 40 MG capsule TAKE 1 CAPSULE BY ORAL ROUTE 2 TIMES PER DAY WITH FOOD, DOSE INCREASE 3 Active liver oil-zinc oxide (Desitin) 40 % ointment Apply topically if needed for irritation. 56 g 4 Active Junel FE 1.5/30 1.5-30 MG-MCG tablet TAKE 1 TABLET BY MOUTH ONCE PER DAY. SKIP PLACEBO PILLS 112 tablet 5 Active Active Problems Problem Noted Date Diagnosed Date Health care maintenance 06/24/2023 Depression with anxiety 06/24/2023 Borderline personality disorder 06/24/2023 PCOS (polycystic ovarian syndrome) 06/24/2023 Obesity 06/24/2023 Skin lesion 06/24/2023 Encounters Date Type Department Care Team Description 09/19/2024 Telephone [facility] [address] [place] [address] Shelbie Turner MD chart prep 09/16/2024 Orders Only [facility] [address] [place] [address] Shelbie Turner MD Class 2 obesity due to excess calories without serious comorbidity with body mass index (BMI) of 36.0 to 36.9 in adult (Primary Dx) 09/13/2024 2:00 PM EDT Clinical Support [facility] DIABETES/NUTRITION [address] [place] [address] Class 1 obesity due to excess calories without serious comorbidity with body mass index (BMI) of 32.0 to 32.9 in adult (Primary Dx) 09/13/2024 Travel 09/07/2024 Population Health Risk Score [facility] () Department [address] [place] [phone] Provider, Population Health Generic 08/29/2024 2:00 PM EDT Nutrition [facility] DI[facility]ET[facility]/NUTRITION [address] [place] [phone] Obesity with body mass index of 30.0-39.9 (Primary Dx) 08/29/2024 Travel 08/24/2024 Telephone [facility] [address] [place] [phone] Shelbie Turner MD Referral 08/11/2024 Refill [facility] [address] [place] [phone] Kizzy Landrum [facility] 06/22/2024 Telephone [facility] [address] [place] [phone] Shelbie Turner MD Telephone Call from Last 3 Months Immunizations Name Administration Dates Next Due Tdap 06/24/2023 Family History Medical History Relation Name Comments Alcohol abuse Father COPD Maternal Grandmother DM2 Maternal Grandmother Lupus Maternal Grandmother COPD Mother Relation Name Status Comments Father Maternal Grandmother Mother Social History Tobacco Use Types Packs/Day Years [...] Orientation Queer 05/06/2023 11 :24 AM EST Last Filed Vital Signs Vital Sign Reading Time Taken Comments Blood Pressure 132/80 06/13/2024 1:47 PM EST Pulse 80 06/13/2024 1:47 PM EST Temperature 36.1 ??C (96.9 ??F) 06/13/2024 1:47 PM ES T Respiratory Rate 20 06/13/2024 1:47 PM EST Oxygen Saturation 98% 06/13/2024 1:47 PM EST Inhaled Oxygen Concentration - - Weight 96 kg (211 lb 9.6 oz) 08/30/2024 2:34 PM EDT Height 172.7 cm (5' 8 ) 08/30/2024 2:34 PM EDT Body Mass Index 32.17 08/30/2024 2:34 PM EDT Plan of Treatment Upcoming Encounters Date Type Department Care Team (Late st Contact Info) Description 09/23/2024 10:00 AM EDT Office Visit [facility] [address] [place] [address] [phone] Shelbie Turner MD [address] [place], [place] [phone] 10/07/2024 2:00 PM EDT Clinical Support [facility] DI[facility]ETES/NUTRITION [address] [place] [phone] [place], [place] [phone] Health Maintenance Due Date Last Done Comments SDOH Screening 1998 Alcohol/Substance Use Screening 2010 HPV Vaccines (1 - 3-dose series) 2013 Pneumococcal Vaccine: Pediatrics (0 to 5 Years) and At-Risk Patients (6 to 49) Years) (1 of 2 - PCV) 2017 COVID-19 Vaccine ( - season) 2024 Influenza Vaccine (#1) 2024 03/29/2010, 2006 Depression Screening 06/24/2024 06/24/2023, 06/24/19 24 Family Planning (PISQ) 06/13/2025 06/13/2024 Tobacco Screening 06/13/2025 06/13/2024 Pap Smear 07/20/2026 07/20/2023 Lipid Panel 06/24/2028 06/24/2023 DTaP/Tdap/Td Vaccines (8 - Td or Tdap) 06/24/2033 06/24/2023, 01/02/2010, 05/12/2003, Additional history exists Zoster Vaccines (1 of 2) 2048 RSV Patients and Patients Aged 60 years or older (1 - 1-dose 75+ series) 2073 Hepatitis B Vaccines Completed 1998, 1998, 1998 HIB Vaccines Completed 10/29/1999, 11/06, 1998, Additional history exists IPV Vaccines Completed 05/12/2003, 11/06, 10/29/1999, Additional history exists Meningococcal Vaccine Aged Out 01/02/2010 No brielle ayan eligible based on patient's age to complete this topic HIV Screening Completed 06/24/2023 Hepatitis C Screening Completed 06/24/2023 Hepatitis A Vaccines Aged Out No long er eligible based on patient's age to complete this topic RSV under 20 months Aged Out No longe r eligible based on patient's age to complete this topic Rotavirus Vaccines Aged Out No longer eligible based on patient's age to complete this topic Procedures Procedure Name Priority Date/Time Associated Diagnosis Comments PAP SMEAR Routine 07/20/2023 11:03 AM EST Cervical cancer screening HEPATITIS C AB W/REFL TO HCV RNA, QN, PCR Routine 06/24/2023 10:20 AM EST Annual physical exam HIV 1/2 ANTIGEN/ANTIBODY, FOURTH GENERATION W/RFL Routine 06/24/2023 10:20 AM EST Annual physical exam LIPID PANEL, STANDARD Routine 06/24/2023 10:20 AM EST Annual physical exam from Last 3 Months or Most Recently Relevant to Health Maintenance Results * Pap Smear (07/20/2023 11:03 AM EST) Swab Cervix uteri structure / Unknown 07/20/2023 11:03 AM EST 07/21/2023 8:00 AM EST [facility] - 08/04/2023 1:21 PM EST ----- ------- Name: Slava Oviedo ?Age/Sex: 23/F ? : 2000 Unit#: [id number] ?? Attend Dr: KIZZY LANDRUM CNM ?Re07/20/23 ?Status: DEP REF ? Location: HO.HHCLNP ? Disch: ? ----- ------- SPEC : [id number] ? RECD: 07/21/23-799 ? STATUS: ??SOUT ? REQ NUM: [id number] ? PHILIP: 07/20/23-1103 ? SUBM : KIZZY LANDRUM CNM ? ENTERED: ??07/21/23-856 ?SP TYPE: Pap Smr ?OTHR DR: ? ORDERED: ??Pap Smear ? Interpretation ?? Satisfactory for evaluation. ?? No endocervical cells seen. ?? Abundant blood. ?? Negative for intraepithelial lesion or malignancy. ?Clinical Information LMP: Oral contraceptive Previous PAP test: Unknown date/findings ? Material Received ?? ThinPrep-Cervical ----- ------- Signed (signature on file) DANILO Magallanes (ASCP) 08/04/23 1321 ? ----- ------- ? END OF REPORT ? us Kizzy KNAPP LAB CYTOLOGY ORDERABLES F inal Result Performing Organization Address [facility]/ZIP Co de Phone Number [facility] [address] [place] [address] [phone] * Hepatitis C Antibody with Reflex to HCV, RNA, Quantitative, Real-Time PCR (06/24/2023 10:20 AM EST) Hepatitis C Antibody Nonreactive Nonreactive [facility] Comment:Antibodies to HCV no t detected; does not exclude early acuteHCV infection. Blood Venous blood specimen / Unknown 06/24/2023 10:20 AM EST 06/24/2023 11:20 AM EST us Shelbie Lopez MD LAB BLOOD ORDERAB LES Final Result Performing Organization Address [facility]/ZIP Co de Phone Number [facility] [address] [place] [address] [phone] * HIV-1/2 Antigen and Antibodies, Fourth Generation, with Reflexes (06/24/2023 10:20 AM EST) HIV AB/AG Nonreactive Nonreactive [facility] Comment:HIV-1 p24 Ag and/or HIV-1/HIV-2 Ab not detected.A test result that is nonreactive does not exclude thepossibility of exposure to or infection with HIV-1 and/orHIV-2. Nonreactive results in this assay for individualswith prior exposure to HIV-1 and/or HIV-2 may be due toantigen and antibody levels that are below the limit ofdetection of this assay.The [employer] Direct HIV Ag/Ab Combo assay result andsupplemental assay results should be interpreted inconjunction with the patient's clinical presentation,history and other laboratory results. If the results areinconsistent with clinical evidence, additional testing issuggested to confirm the result. Blood Venous blood specimen / Unknown 06/24/2023 10:20 AM EST 06/24/2023 11:20 AM EST us Shelbie Lopez MD LAB BLOOD ORDERAB LES Final Result Performing Organization Address [facility] Co de Phone Number [facility] [address] [place] [address] [phone] * (ABNORMAL) Lipid Panel, Standard (06/24/2023 10:20 AM EST) Triglycerides 167(H) <150 mg/dL [facility] Comment:Desirable Triglyceri de: less than 150 mg/dLBorderline High Triglyceride 150-199 mg/dLHigh Triglyceride: 200-499 mg/dLVery High Triglyceride: greater than or equal to 5OO mg/dL Cholesterol 113 <200 mg/dL [facility] Comment:Desirable Cholestero l: less than 200 mg/dLBorderline High Cholesterol: 200-239 mg/dLHigh Cholesterol: greater than 239 mg/dL LDL Cholesterol Calculated 38 <100 mg/dL [facility] Comment:Desirable LDL: less than 100 mg/dLNear Optimal/Above Optimal LDL: 110- 129 mg/dLBorderline High LDL: 130-159 mg/dLHigh LDL: 160-189 mg/dLVery High LDL: greater than or equal to 190 mg/dL HDL Cholesterol 42 >40 mg/dL [facility] Comment:Desirable HDL: great er than 40 mg/dL Note: This HDL assay may give artificially low results in patients with liver disease. Blood Venous blood specimen / Unknown 06/24/2023 10:20 AM EST 06/24/2023 11:20 AM EST us Shelbie Lopez MD LAB BLOOD ORDERAB LES Final Result Performing Organization Address City/[facility]/ZIP Co de Phone Number [facility] [address] [place] [phone] from Last 3 Months or Most Recently Relevant to Health Maintenance Insurance [facility] C3 HSN FULL Care Teams Interactive Video Technician Relationship Specialty Start Date End Date Shelbie Turner MD [address] [place] [phone] PCP - General Internal Medicine 06/26/23
== END 2024-09-19 15:15 | disposition home or self-care (01) ==
LOC: HO.LAB 15:14
PROVIDERS: PCP Student in an Organized Health Care Education/Training Program; Visit Provider Registered Nurse Psychiatric/Mental Health
DX: Z13.29 Encounter for screening for other suspected endocrine disorder (principal); E55.9 Vitamin D deficiency, unspecified; Z51.81 Encounter for therapeutic drug level monitoring; Z79.899 Other long term (current) drug therapy
CPT/HCPCS: 36415; 80053; 80061; 82306; 83036; 84443; 85025

== ENCOUNTER → 2024-09-23 14:12 | Outpatient (REF) | payer MEDICAID, SELFPAY ==
--- NOTE | 2024-09-23 14:19 | ECG_ITS ---
Test Reason : new med Blood Pressure : */* mmHG Vent. Rate : 64 BPM Atrial Rate : 64 BPM P-R Int : 142 ms QRS Dur : 92 ms QT Int : 426 ms P-R-T Axes : 55 33 20 degrees QTcB Int : 439 ms Normal sinus rhythm Normal ECG No previous ECGs available Referred By: Zulema Stringer Electronically Signed By: ANAI FOUNTAIN MD
--- OUTSIDE RECORDS SUMMARY | 2024-09-23 14:37 | XMS_ITS | Clinical Summary ---
Author Organization [employer] Address [address] [facility] 7t [place] [address] Care Team Providers Care Assistant Manager Pt Name Role Phone Shelbie Turner MD Primary Care Pro vider Allergies No known active allergies Medications cloNIDine (Catapres) 0.1 MG tablet TAKE 1/2 TABLET BY MOUTH 2 TIMES PER DAY NEEDED AXIETY 3 Active escitalopram (Lexapro) 20 MG tablet Take 20 mg by mouth in the morning. 3 Active ziprasidone (Geodon) 40 MG capsule TAKE 1 CAPSULE BY ORAL ROUTE 2 TIMES PER DAY WITH FOOD, DOSE INCREASE 3 Active topiramate (Topamax) 25 MG tablet Take 25 mg by mouth at bedtime. 5 Active clotrimazole (Lotrimin) 1 % creamIndication s:Ringworm Apply topically 2 times daily for 28 days. 30 g 5 5 10/22/19 25 Active hydrOXYzine HCl (Atarax) 25 MG tablet Take 25 mg by mouth every 8 (eight) hours if needed. 3 09/24/19 25 Discontinu ed(Other) liver oil-zinc oxide (Desitin) 40 % ointment Apply topically if needed for irritation. 56 g 4 09/24/19 25 Discontinu ed(Other) .11/04 1.5-30 MG-MCG tablet TAKE 1 TABLET BY MOUTH ONCE PER DAY. SKIP PLACEBO PILLS 112 tablet 5 09/24/19 25 Discontinu ed(Other) traZODone (Desyrel) 50 MG tablet Take 50 mg by mouth at bedtime. 5 09/24/19 25 Discontinu ed(Other) Active Problems Problem Noted Date Diagnosed Date Autism 09/23/2024 Asthma, unspecified asthma s everity, unspecified whether complicated, unspecified whether persistent 09/23/2024 Health care maintenance 06/24/2023 Depression with anxiety 06/24/2023 Borderline personality disorder 06/24/2023 PCOS (polycystic ovarian syndrome) 06/24/2023 Obesity 06/24/2023 Skin lesion 06/24/2023 Encounters Date Type Department Care Team Description 09/23/2024 10:00 AM EDT Office Visit [facility] [address] [place] [phone] Shelbie Turner MD Autism (Primary Dx); Dietary counseling; Exercise counseling; Asthma, unspecified asthma severity, unspecified whether complicated, unspecified whether persistent; Decreased vision; Health care maintenance; Memory loss; Confusion; Ringworm 09/23/2024 Travel 09/19/2024 Telephone [facility] [address] [place] [phone] Shelbie Turner MD chart prep 09/16/2024 Orders Only [facility] [address] [place] [phone] Shelbie Turner MD Class 2 obesity due to excess calories without serious comorbidity with body mass index (BMI) of 36.0 to 36.9 in adult (Primary Dx) 09/13/2024 2:00 PM EDT Clinical Support [facility] DIABETES/NUTRITION [address] [place] [phone] Class 1 obesity due to excess calories without serious comorbidity with body mass index (BMI) of 32.0 to 32.9 in adult (Primary Dx) 09/13/2024 Travel 09/07/2024 Population Health Risk Score [facility] () Department [address] [place] [phone] Provider, Population Health Generic 08/29/2024 2:00 PM EDT Nutrition [facility] DI[facility]ETES/NUTRITION [address] [place] [phone] Obesity with body mass index of 30.0-39.9 (Primary Dx) 08/29/2024 Travel 08/24/2024 Telephone [facility] [address] [place] [address] Shelbie uTrner MD Referral 08/11/2024 Refill [facility] [address] [place] [address] Kizzy Landrum CNM from Last 3 Months Immunizations Name Administration Dates Next Due Tdap 06/24/2023 Family History Medical History Relation Name Comments Alcohol abuse Father COPD Maternal Grandmother DM2 Maternal Grandmother Lupus Maternal Grandmother COPD Mother Relation Name Status Comments Father Maternal Grandmother Mother Social History Tobacco Use Types Packs/Day Years Used Date Smoking Tobacco: Never Passive Smoke Exposure: Never Smokeless Tobacco: Never Tobacco Cessation:Counseling Given: Not Answered Alcohol Use Standard Drinks/Week Comments Not Currently 0 (1 standard drink = 0.6 oz pur e alcohol) social Depression Answer Date Recorded Patient Health Questionnaire-9 Score 0 09/23/2024 Patient Health Questionnaire-9 Score 0 09/23/2024 Last PHQ-9: Questionnaire Data Not on file 0 09/23/2024 Housing Stability Answer Date Recorded What is your housing situation today? I have dakotaharry harris 09/23/[address] you li ve. Do you have problems with any of the following? None of the above 09/23/2024 Food Insecurity Answer Date Recorded Within the past 12 months, y ou worried that your food would run out before you got money to buy more: Never True 09/23/2024 Within the past 12 months,th e food you bought just didn't last and you didn't have enough money to get more: Never True Transportation Answer Date Recorded In the past 12 months, has l ack of transportation kept you from medical appts, meetings, work or from getting things needed for daily living? No 09/23/2024 Utilities Answer Date Recorded In the past 12 months, has t he electric, gas, oil or water company threatened to shut off services in your home? No 09/23/2024 Depression Answer Date Recorded Patient Health Questionnaire-2 Score 0 09/23/2024 Internet Access Answer Date Recorded Internet Access Q1 No 09/23/2024 Internet Access Q2 I do not want or need it 09/06 Comments No Sex and Gender Information Value Date Recorded Sex Assigned at Female 02/05/2023 2:14 PM EDT Legal Sex Female 2:12 PM EDT Gender Identity Non-Binary 05/06/2023 11:24 AM EST Sexual Orientation Queer 05/06/2023 11 :24 AM EST Last Filed Vital Signs Vital Sign Reading Time Taken Comments Blood Pressure 109/72 09/23/2024 9:46 AM EDT Pulse 89 09/23/2024 9:46 AM EDT Temperature 36.3 ??C (97.3 ??F) 09/23/2024 9:46 AM ED T Respiratory Rate 20 09/23/2024 9:46 AM EDT Oxygen Saturation 96% 09/23/2024 9:46 AM EDT Inhaled Oxygen Concentration - - Weight 96.9 kg (213 lb 9.6 oz) 09/23/2024 9:46 A M EDT Height 172.7 cm (5' 8 ) 09/23/2024 9:46 AM EDT Body Mass Index 32.48 09/23/2024 9:46 AM EDT Plan of Treatment Upcoming Encounters Date Type Department Care Team (Late st Contact Info) Description 10/07/2024 2:00 PM EDT Clinical Support [facility]ITION [address] [place] [phone] [place] [address] 12/14/2024 2:15 PM EDT Office Visit [facility] [address] [place] [address] [phone] Shelbie Turner MD [address] [place], [place] [phone] Health Maintenance Due Date Last Done Comments HPV Vaccines (1 - 3-dose series) 2013 Pneumococcal Vaccine: Pediatrics (0 to 5 Years) and At-Risk Patients (6 to 49) Years) (1 of 2 - PCV) 2017 COVID-19 Vaccine ( - 2023- season) 2024 Influenza Vaccine (#1) 2024 03/29/2010, 2006 Family Planning (PISQ) 06/13/2025 06/13/2024 Alcohol/Substance Use Screening 09/23/2025 09/23/2024 Depression Screening 09/23/2025 09/23/2024, 09/24/19 25 SDOH Screening 09/23/2025 09/23/2024 Tobacco Screening 09/23/2025 09/23/2024 Pap Smear 07/20/2026 07/20/2023 Lipid Panel 06/24/2028 [...] 11:03 AM EST 07/21/2023 8:00 AM EST [facility] - 08/04/2023 1:21 PM EST ----- ------- Name: Slava Oviedo ?Age/Sex: 23/F ? : 2000 Unit#: [id number] ?? Attend Dr: KIZZY LANDRUM CNM ?Re07/20/23 ?Status: DEP REF ? Location: HO.HHCLNP ? Disch: ? ----- ------- SPEC : [id number] ? RECD: 07/21/23-799 ? STATUS: ??SOUT ? REQ NUM: [id number] ? PHILIP: 07/20/23-1103 ? SUBM DR: KIZZY LANDRUM CNM ? ENTERED: ??07/21/23-856 ?SP TYPE: Pap Smr ?OTHR : ? ORDERED: ??Pap Smear ? Interpretation ?? [...] ORDERABLES F inal Result Performing Organization Address [facility] Co de Phone Number [facility] [address] [place] [address] [phone] * Hepatitis C Antibody with Reflex to HCV, RNA, Quantitative, Real-Time PCR (06/24/2023 10:20 AM EST) Hepatitis C Antibody Nonreactive Nonreactive [facility] Comment:Antibodies to HCV no t detected; does not exclude early acuteHCV infection. Blood Venous blood specimen / Unknown 06/24/2023 10:20 AM EST 06/24/2023 11:20 AM EST us Shelbie Lopez MD LAB BLOOD ORDERAB LES Final Result Performing Organization Address [facility]/ZIP Co de Phone Number [facility] [address] [place] [address] [phone] * HIV-1/2 Antigen and Antibodies, Fourth Generation, with Reflexes (06/24/2023 10:20 AM EST) HIV AB/AG Nonreactive Nonreactive [facility] Comment:HIV-1 p24 Ag and/or HIV-1/HIV-2 Ab not detected.A test result that is nonreactive does not exclude thepossibility of exposure to or infection with HIV-1 and/orHIV-2. Nonreactive results in this assay for individualswith prior exposure to HIV-1 and/or HIV-2 may be due toantigen and antibody levels that are below the limit ofdetection of this assay.The [employer] HIV Ag/Ab Combo assay result andsupplemental assay results should be interpreted inconjunction with the patient's clinical presentation,history and other laboratory results. If the results areinconsistent with clinical evidence, additional testing issuggested to confirm the result. Blood Venous blood specimen / Unknown 06/24/2023 10:20 AM EST 06/24/2023 11:20 AM EST us Shelbie Lopez MD LAB BLOOD ORDERAB LES Final Result Performing Organization Address [facility] Co de Phone Number [facility] [address] [place] [phone] * (ABNORMAL) Lipid Panel, Standard (06/24/2023 10:20 AM EST) Triglycerides 167(H) <150 mg/dL [facility] Comment:Desirable Triglyceri de: less than 150 mg/dLBorderline High Triglyceride 150-199 mg/dLHigh Triglyceride: 200-499 mg/dLVery High Triglyceride: greater than or equal to 5OO mg/dL Cholesterol 113 <200 mg/dL [facility] Comment:Desirable Cholestero l: less than 200 mg/dLBorderline High Cholesterol: 200-239 mg/dLHigh Cholesterol: greater than 239 mg/dL LDL Cholesterol Calculated 38 <100 mg/dL [facility] Comment:Desirable LDL: less than 100 mg/dLNear Optimal/Above Optimal LDL: 110- 129 mg/dLBorderline High LDL: 130-159 mg/dLHigh LDL: 160-189 mg/dLVery High LDL: greater than or equal to 190 mg/dL HDL Cholesterol 42 >40 mg/dL [facility] Comment:Desirable HDL: great er than 40 mg/dL Note: This HDL assay may give artificially low results in patients with liver disease. Blood Venous blood specimen / Unknown 06/24/2023 10:20 AM EST 06/24/2023 11:20 AM EST us Shelbie Lopez MD LAB BLOOD ORDERAB LES Final Result Performing Organization Address City/[facility]/ZIP Co de Phone Number [facility] [address] [place] [phone] from Last 3 Months or Most Recently Relevant to Health Maintenance Insurance [facility] C3 HSN FULL Care Teams Assistant Manager Pt Relationship Specialty Start Date End Date Shelbie Turner MD [address] [place] [phone] PCP - General Internal Medicine 06/26/23
--- OUTSIDE RECORDS SUMMARY | 2024-09-23 14:37 | XMS_ITS | Encounter Summary ---
Author Organization [employer] Address [address] [place] [address] 7 [place] [address] Care Team Providers Care Data Security Administrator Name Role Phone Shelbie Turner MD Primary Care Pro vider Reason for Visit * Reason Comments Med Refill Encounter Details Date Type Department Care Team (Late Contact Info) Description 08/11/2024 Refill [facility] [address] [place] [address] Kizzy Ramires CNM [address] [place], [place] [phone] Social History Tobacco Use Types Packs/Day Years [...] Description 10/07/2024 2:00 PM EDT Clinical Support [facility] DIABETES/NUTRITION [address] [place] [address] [place] [address] 12/14/2024 2:15 PM EDT Office Visit [facility] MED[facility] [address] [place] [address] Shelbie Turner MD [address] [place] [phone] documented as of this encounter Visit Diagnoses Not on filedocumented in this encounter Additional Health Concerns Assessment Noted Time PHQ-9 Depression Total Score: 5 06/24/19 24 9:23 AM EST documented as of this encounter Care Teams Data Security Administrator Relationship Specialty Start Date End Date Shelbie Turner MD [address] [place] [phone] PCP - General Internal Medicine 06/26/23 documented as of this encounter
--- OUTSIDE RECORDS SUMMARY | 2024-09-23 14:37 | XMS_ITS | Encounter Summary ---
Author Organization [employer] Address [address] [place] [address] [address] [address] Care Team Providers Care Cement Finishing Supervisor Name Role Phone Shelbie Turner MD Primary Care Pro vider Reason for Referral * Imaging (Routine) - Pending Review Specialty Diagnoses / Procedures Referred By Marline mcleod Referred To Contact Radiology Diagnoses Confusion Procedures MR Brain w/o Contrast Shelbie Turner MD [address] [place] [address] Phone: tel: fax: [address] Phone: tel: fax: Referral ID Status Reason Start Date Expiration Date V isits Requested Visits Authorized [id number] Pending Review 09/23/2024 09/23/2025 1 1 * Neurology (Routine) - Pending Review Specialty Diagnoses / Procedures Referred By Marline mcleod Referred To Contact Diagnoses Confusion Procedures Ambulatory EEG Shelbie Turner MD [address] [place] [address] Phone: tel: fax: [address] Phone: tel: fax: Referral ID Status Reason Start Date Expiration Date V isits Requested Visits Authorized [id number] Pending Review 09/23/2024 09/23/2025 1 1 * Consultation (Routine) - Pending Review Specialty Diagnoses / Procedures Referred By Marline mcleod Referred To Contact Ophthalmology Diagnoses Decreased vision Health care maintenance Shelbie Turner MD [address] [place] [address] Phone: tel: fax: Referral ID Status Reason Start Date Expiration Date Visits Requested Visits Authorized [id number] Pending Review Specialty Services Required 09/23/2024 09/23/2025 1 1 Encounter Details Date Type Department Care Team (Late st Contact Info) Description 09/23/2024 10:00 AM EDT Office Visit [facility] MEDICINE [address] [place] [phone] Shelbie Turner MD [address] [place] [phone] Autism (Primary Dx); Dietary counseling; Exercise counseling; Asthma, unspecified asthma severity, unspecified whether complicated, unspecified whether persistent; Decreased vision; Health care maintenance; Memory loss; Confusion; Ringworm Social History Tobacco Use Types Packs/Day Years [...] is your housing situation today? I have dakota kimberly 09/23/[address] you li [...] AM EST documented as of this encounter Last Filed Vital Signs Vital Sign Reading [...] Mass Index 32.48 09/23/2024 9:46 AM EDT documented in this encounter Plan of Treatment Upcoming Encounters Date Type Department Care Team (Late st Contact Info) Description 10/07/2024 2:00 PM EDT Clinical Support [facility] DIABETES/NUTRITION [address] [place] [address] [place] [address] 12/14/2024 2:15 PM EDT Office Visit [facility] MEDICINE [address] [place] [address] Shelbie Turner MD [address] [place] [address] Scheduled Orders Name Type Priority Associated Diagnoses Orde r Schedule Ambulatory EEG Neurology Routine Confusion Expected: 09/23/2024 (Approximate), Expires: 09/23/2025 MR Brain w/o Contrast Imaging Routine Confusion Expected: 09/23/2024, Expires: 09/23/2025 Scheduled Referrals Name Type Priority Associated Diagnoses Order Schedule Referral to Ophthalmology Outpatient Referral Routine Decreased vision Health care maintenance Expected: 09/23/2024 (Approximate), Expires: 09/23/2025 documented as of this encounter Visit Diagnoses Diagnosis Autism- Primary Autistic disorder, current or active state Dietary counseling Dietary surveillance and counseling Exercise counseling Asthma, unspecified asthma severity, unspecified whether complicated, unspecified whether persistent Decreased vision Unspecified visual loss Health care maintenance Memory loss Confusion Unspecified psychosis Ringworm Dermatophytosis of unspecified site documented in this encounter Additional Health Concerns Assessment Noted Time PHQ-9 Depression Total Score: 0 09/24/19 25 9:47 AM EDT documented as of this encounter Care Teams Cement Finishing Supervisor Relationship Specialty Start Date End Date Shelbie Turner MD [address] [place] [address] PCP - General Internal Medicine 06/26/23 documented as of this encounter
--- OUTSIDE RECORDS SUMMARY | 2024-09-23 14:37 | XMS_ITS | Encounter Summary ---
Author Organization [employer] Address [address] [place] [address] [place] [address] Care Team Providers Care Coil Former Name Role Phone Shelbie Turner MD Primary Care Pro vider Reason for Visit * Reason Onset Date Comments chart prep 09/19/2024 Encounter Details Date Type Department Care Team ([facility] st Contact Info) Description 09/19/2024 Telephone [facility] MEDICINE [address] [place], [place] [phone] Shelbie Turner MD [address] [place], [place] [phone] chart prep Social History Tobacco Use Types [...] Description 10/07/2024 2:00 PM EDT Clinical Support [facility] DIABETES/NUTRITION [address] [place] [address] [place] [address] 12/14/2024 2:15 PM EDT Office Visit [facility] MEDICINE [address] [place], [place] [phone] Shelbie Turner MD [address] [place] [address] documented as of this encounter Visit Diagnoses Not on filedocumented in this encounter Additional Health Concerns Assessment Noted Time PHQ-9 Depression Total Score: 5 06/24/19 24 9:23 AM EST documented as of this encounter Care Teams Coil Former Relationship Specialty Start Date End Date Shelbie Turner MD [address] [place] [address] [phone] PCP - General Internal Medicine 06/26/23 documented as of this encounter
--- OUTSIDE RECORDS SUMMARY | 2024-09-23 14:37 | XMS_ITS | Encounter Summary ---
Author Organization [employer] Address [address] [place] [address] Care Team Providers Care Commercial Teller Name Role Phone Shelbie Turner MD Primary Care Pro vider Encounter Details Date Type Department Care Team (Latest Contact Info) Description 09/23/2024 Travel Social History Tobacco Use Types Packs/Day Years [...] your housing situation today? I have dakota harris 09/23/[address] you [...] Description 10/07/2024 2:00 PM EDT Clinical Support [facility] DIABETES/NUTRITION [address] [place] [address] [place] [address] 12/14/2024 2:15 PM EDT Office Visit [facility] MEDICINE [address] [place] [address] Shelbie Turner MD [address] [place] [address] documented as of this encounter Visit Diagnoses Not on filedocumented in this encounter Additional Health Concerns Assessment Noted Time PHQ-9 Depression Total Score: 0 09/24/19 25 9:47 AM EDT documented as of this encounter Care Teams Commercial Teller Relationship Specialty Start Date End Date Shelbie Turner MD [address] [place] [address] [phone] PCP - General Internal Medicine 06/26/23 documented as of this encounter
--- OUTSIDE RECORDS SUMMARY | 2024-09-23 14:37 | XMS_ITS | Encounter Summary ---
Author Organization [employer] Address [address] [place] [address] 7 [place] [address] Care Team Providers Care Lumber Puller Name Role Phone Shelbie Turner MD Primary Care Pro vider Reason for Visit * Reason Onset Date Comments New Patient 02/05/2023 Encounter Details Date Type Department Care Team ([facility] st Contact Info) Description 02/05/2023 Telephone [facility] MEDICINE [address] [place], [place] [phone] Mario Maciel MD 230 [place], [place] [phone] New Patient Social History Tobacco Use Types [...] AM EDT Tc to Pt, to Offer Surveillance Supervisor appt, No Answer/Could not leave Vm due to I'm sorry the person your trying to reach, has voicemail box that not been set up yet,Goodbye. * Telephone Encounter - Basil Ramos Hussein - 02/05/2023 2:17 PM EDT Pt has been transfer over to wait list for CIVIL ENGINEERING PROFESSIONAL. EFFECTIVE SINCE 02/05/2023 documented in this encounter Plan of Treatment Upcoming Encounters Date Type Department Care Team (Late st Contact Info) Description 10/07/2024 2:00 PM EDT Clinical Support [facility] DIABETES/NUTRITION [address] [place] [address] [place] [address] 12/14/2024 2:15 PM EDT Office Visit [facility] MEDICINE [address] [place] [address] Shelbie Turner MD [address] [place] [address] documented as of this encounter Visit Diagnoses Not on filedocumented in this encounter Care Teams Lumber Puller Relationship Specialty Start Date End Date Shelbie Turner MD 230 [place], [place] [phone] PCP - General Internal Medicine 06/26/23 documented as of this encounter
== END ==
LOC: HO.CARD 14:12
PROVIDERS: PCP Student in an Organized Health Care Education/Training Program; Visit Provider Registered Nurse Psychiatric/Mental Health
DX: Z13.6 Encounter for screening for cardiovascular disorders (principal); Z79.899 Other long term (current) drug therapy
CPT/HCPCS: 93005

== ENCOUNTER → 2024-09-23 14:19 | Outpatient (BNV) | payer MEDICAID, SELFPAY | PROVIDERS: PCP Student in an Organized Health Care Education/Training Program; Visit Provider Internal Medicine Cardiovascular Disease | DX: Z13.6 Encounter for screening for cardiovascular disorders (principal) | CPT/HCPCS: 93010 ==

== ENCOUNTER → 2024-10-03 17:40 | Outpatient (BNV) | payer MEDICAID, SELFPAY | PROVIDERS: PCP Student in an Organized Health Care Education/Training Program; Visit Provider Radiology Diagnostic Radiology | DX: R41.89 Other symptoms and signs involving cognitive functions and awareness (principal); Z87.820 Personal history of traumatic brain injury | CPT/HCPCS: 70551 ==

== ENCOUNTER 2024-10-03 17:41 | Outpatient (REF) | payer MEDICAID, SELFPAY ==
--- NOTE | ~2024-10-03 | MR_ITS ---
EXAMINATION: MR BRAIN WITHOUT CONTRAST CLINICAL INFORMATION: Worsening memory. Confusion. History of TBI. COMPARISON: None available. TECHNIQUE: MRI of the brain was obtained using routine sequences without contrast. FINDINGS: No restricted diffusion. No acute intracranial hemorrhage, mass effect, midline shift, hydrocephalus or herniation. Kim-white matter differentiation is normal. Posterior cranial fossa contents demonstrated low position Of the cerebellar tonsils. Sellar/suprasellar region demonstrated no signal abnormality or masses. Craniocervical junction is intact. Flow-void signal within the main cerebral vessels is normal. Right accessory parotid gland. Prominent lacrimal glands, bilaterally. MR/MR head/brain wo con IMPRESSION: No acute stroke/nonhemorrhagic ischemia. No acute intracranial hemorrhage. Electronically signed by: Simeon Johnson MD 10/04/2024 07:08 AM EDT
--- OUTSIDE RECORDS SUMMARY | 2024-10-03 19:16 | XMS_ITS | Encounter Summary ---
Author Organization [employer] Address [address] [place] [address] 7 [place] [address] Care Team Providers Care Tobacco Buyer Name Role Phone Shelbie Turner MD Primary Care Pro vider Reason for Visit * Reason Onset Date Comments Nurse Triage 10/03/2024 Encounter Details Date Type Department Care Team ([facility] st Contact Info) Description 10/03/2024 Telephone [facility] MEDICINE [address] [place] [address] Shelbie Turner MD [address] [place], [place] [phone] Nurse Triage Social History Tobacco Use Types Packs/Day Years [...] encounter Miscellaneous Notes * Telephone Encounter - Erlinda Norris RN - 10/03/2024 11:35 AM EDT Per last OV note, pt seen on 09/23 by PCP Skin lesion No noted on exam any cysts or any skin openings with drainage but advised patient that if this occurs to take a picture and bring at next appointment, possible concern for sebaceous cyst but at present not seen on exam There is fungal rash in right axilla - Prescribed today clotrimazole to use twice a day topical for 2 to 3 weeks 3 Call returned to Slava Oviedo to triage below. Reports having a lump on bilateral armpits x 2 days. Tender to touch. No open skin or drainage. No spreading redness. No rash. Denies any fever. Norecent shaving or use of wax. Pt advised of disposition, agrees to seek [facility] for exam as no sick on site availability on teams at time of call. Reviewed [facility] operating hours and that wait times vary. Reviewed home care advise, ER precautions and reasons to call back. Protocol Used: Skin Lump or Localized Swelling (Adult) Protocol-Based Disposition: See in Office or Video Visit Today Insurance verified as active per Real Time Eligibility in [facility]. Video visit offer not recorded Positive Triage Question: * Swelling is painful to touch and no fever * All higher-acuity triage questions were negative Care Advice Discussed: * Reasons To Call Back - Fever occurs - Spreading redness occurs - You become worse * Telephone Encounter - Yamilex Dean - 10/03/2024 11:27 AM EDT Symptom: Skin Lump Outcome: Schedule an appointment to be seen within 3 days Reason: Caller denied all higher acuity questions The caller accepted this outcome. Pt was seen on 09/23/24 and stated was prescribed cream for ring worm Contact pt at [phone] documented in this encounter Plan of Treatment Upcoming Encounters Date Type Department Care Team (Late st Contact Info) Description 10/07/2024 2:00 PM EDT Clinical Support [facility] DIABETES/NUTRITION [address] [place] [address] [place] [address] 12/14/2024 2:15 PM EDT Office Visit [facility] MEDICINE [address] [place] [address] Shelbie Turner MD [address] [place] [address] [phone] documented as of this encounter Visit Diagnoses Not on filedocumented in this encounter Additional Health Concerns Assessment Noted Time PHQ-9 Depression Total Score: 0 09/24/19 25 9:47 AM EDT documented as of this encounter Care Teams Tobacco Buyer Relationship Specialty Start Date End Date Shelbie Turner MD [address] [place] [address] [phone] PCP - General Internal Medicine 06/26/23 documented as of this encounter
--- OUTSIDE RECORDS SUMMARY | 2024-10-03 19:16 | XMS_ITS | Clinical Summary ---
Author Organization [employer] Address [address]t [place] [address] Care Team Providers Care Financial Rep Name Role Phone Shelbie Turner MD Primary [...] unspecified whether complicated, unspecified whether persistent 09/23/2024 Confusion state 09/23/2024 Bulimia 09/23/2024 Health care maintenance 06/24/2023 Depression with anxiety 06/24/2023 Borderline personality disorder 06/24/2023 PCOS (polycystic ovarian syndrome) 06/24/2023 Obesity 06/24/2023 Skin lesion 06/24/2023 Encounters Date Type Department Care Team Description 10/03/2024 Telephone [facility] MEDICINE [address] [place] [address] Shelbie Turner MD Nurse Triage 09/23/2024 10:00 AM EDT Office Visit [facility] MEDICINE [address] [place] [phone] Shelbie Turner MD Autism (Primary Dx); Dietary counseling; Exercise counseling; Asthma, unspecified asthma severity, unspecified whether complicated, unspecified whether persistent; Decreased vision; Health care maintenance; Memory loss; Confusion; Ringworm; Skin lesion; Confusion state; Bulimia nervosa, unspecified severity 09/23/2024 Travel 09/19/2024 Telephone [facility] MEDICINE [address] [place] [address] Shelbie Turner MD chart prep 09/16/2024 Orders Only [facility] MEDICINE [address] [place] [address] Shelbie Turner MD Class 2 obesity due to excess calories without serious comorbidity with body mass index (BMI) of 36.0 to 36.9 in adult (Primary Dx) 09/13/2024 2:00 PM EDT Clinical Support [facility] DIABETES/NUTRITION [address] [place] [address] Class 1 obesity due to excess calories without serious comorbidity with body mass index (BMI) of 32.0 to 32.9 in adult (Primary Dx) 09/13/2024 Travel 09/07/2024 Population Health Risk Score [facility] () Department [address] [place] [phone] Provider, Population Health Generic 08/29/2024 2:00 PM EDT Nutrition [facility] DIABETES/NUTRITION [address] [place] [address] Obesity with body mass index of 30.0-39.9 (Primary Dx) 08/29/2024 Travel 08/24/2024 Telephone [facility] MEDICINE [address] [place], [place] [phone] Shelbie Turner MD Referral 08/11/2024 Refill [facility] MEDICINE [address] [place] [address] Kizzy Landrum CNM from Last 3 Months [...] the past 12 months, has t he [employer], gas, oil or water [employer] threatened to shut off services in your [...] Description 10/07/2024 2:00 PM EDT Clinical Support [facility] DIABETES/NUTRITION [address] [place] [address] [place] [address] 12/14/2024 2:15 PM EDT Office Visit [facility] MEDICINE [address] [place] [address] [phone] Shelbie Turner MD [address] [place] [address] [phone] Health Maintenance Due Date Last Done Comments HPV Vaccines (1 - 3-dose series) 2013 Pneumococcal Vaccine: Pediatrics (0 to 5 Years) and At-Risk Patients (6 to 49) Years) (1 of 2 - PCV) 2017 COVID-19 Vaccine (1 - 2023- season) 2024 Influenza Vaccine (#1) 2024 03/29/2010, 2006 Family Planning (PISQ) 06/13/2025 06/13/2024 Alcohol/Substance Use Screening 09/23/2025 09/23/2024 Depression Screening 09/23/2025 09/23/2024, 09/24/19 SDOH Screening 09/23/2025 09/23/2024 Tobacco Screening 09/23/2025 [...] 11:03 AM EST 07/21/2023 8:00 AM EST Joyce [facility] - 08/04/2023 1:21 PM EST ----- ------- Name: Slava Oviedo ?Age/Sex: 23/F ? : 2000 Unit#: [id number] ?? Attend Dr: KIZZY LANDRUM CNM ?Re07/20/23 ?Status: DEP REF ? [facility] ? Disch: ? ----- ------- SPEC : [id number] ? RECD: 07/21/23 ? STATUS: ??SOUT ? REQ NUM: [id number] ? PHILIP: 07/20/23-110 ? SUBM DR: KIZZY LANDRUM CNM ? ENTERED: ??07/21/23 ?SP TYPE: Pap Smr ?OTHR DR: ? [...] ? END OF REPORT ? us Kizzy Landrum [facility] CYTOLOGY ORDERABLES F inal Result Performing Organization Address [facility] Co de Phone Number [facility] [address] [place] [address] [phone] * Hepatitis C Antibody with Reflex to HCV, RNA, Quantitative, Real-Time PCR (06/24/2023 10:20 AM EST) Hepatitis C Antibody Nonreactive Nonreactive [facility] Comment:Antibodies to HCV no t detected; does not exclude early acuteHCV infection. Blood Venous blood specimen / Unknown 06/24/2023 10:20 AM EST 06/24/2023 11:20 AM EST us Shelbie Lopez MD LAB BLOOD ORDERAB LES Final Result Performing Organization Address [facility] Co de Phone Number [facility] [address] [place] [address] [phone] * HIV-1/2 Antigen and Antibodies, Fourth Generation, with Reflexes (06/24/2023 10:20 AM EST) HIV AB/AG Nonreactive Nonreactive [facility] Comment:HIV-1 p24 Ag and/or HIV-1/HIV-2 Ab not detected.A test result that is nonreactive does not exclude thepossibility of exposure to or infection with HIV-1 and/orHIV-2. Nonreactive results in this assay for individualswith prior exposure to HIV-1 and/or HIV-2 may be due toantigen and antibody levels that are below the limit ofdetection of this assay.The [employer] HIV Ag/Ab Combo assay result andsupplemental assay results should be interpreted inconjunction with the patient's clinical presentation,history and other laboratory results. If the results areinconsistent with clinical evidence, additional testing issuggested to confirm the result. Blood Venous blood specimen / Unknown 06/24/2023 10:20 AM EST 06/24/2023 11:20 AM EST us Shelbie Lopez MD LAB BLOOD ORDERAB LES Final Result Performing Organization Address City/[facility] Co de Phone Number [facility] [address] [place] [phone] * (ABNORMAL) Lipid Panel, Standard (06/24/2023 10:20 AM EST) Triglycerides 167(H) <150 mg/dL [facility] Comment:Desirable Triglyceri de: less than 150 mg/dLBorderline High Triglyceride 150-199 mg/dLHigh Triglyceride: 200-499 mg/dLVery High Triglyceride: greater than or equal to 5OO mg/dL Cholesterol 113 <200 mg/dL [facility] Comment:Desirable Cholestero l: less than 200 mg/dLBorderline High Cholesterol: 200-239 mg/dLHigh Cholesterol: greater than 239 mg/dL LDL Cholesterol Calculated 38 <100 mg/dL [facility] Comment:Desirable LDL: less than 100 mg/dLNear Optimal/Above Optimal LDL: 110- 129 mg/dLBorderline High LDL: 130-159 mg/dLHigh LDL: 160-189 mg/dLVery High LDL: greater than or equal to 190 mg/dL HDL Cholesterol 42 >40 mg/dL [facility] Comment:Desirable HDL: great er than 40 mg/dL Note: This HDL assay may give artificially low results in patients with liver disease. Blood Venous blood specimen / Unknown 06/24/2023 10:20 AM EST 06/24/2023 11:20 AM EST us Shelbie Lopez MD LAB BLOOD ORDERAB LES Final Result [facility] [address] [place] [address] [phone] from Last 3 Months or Most Recently Relevant to Health Maintenance Insurance [facility] C3 HSN FULL Care Teams Financial Rep Relationship Specialty Start Date End Date Shelbie Turner MD [address] [place] [phone] PCP - General Internal Medicine 06/26/23
--- OUTSIDE RECORDS SUMMARY | 2024-10-03 19:16 | XMS_ITS | Encounter Summary ---
Author Organization [employer] Address [address] [place] [address] 7 [place] [address] Care Team Providers Care Aesthetician Name Role Phone Shelbie Turner MD Primary Care Pro vider Reason for Visit * Reason Onset Date Comments New Patient 02/05/2023 Encounter Details Date Type Department Care Team ([facility] st Contact Info) Description 02/05/2023 Telephone [facility] MEDICINE [address] [place], [place] [phone] Mario Maciel MD [address] [place], [place] [phone] New Patient Social History Tobacco Use Types [...] AM EDT Tc to Pt, to Offer Registered Nurse Hh Case Manager appt, No Answer/Could not leave Vm due to I'm sorry the person your trying to reach, has voicemail box that not been set up yet,Goodbye. * Telephone Encounter - Basil Ramos Hussein - 02/05/2023 2:17 PM EDT Pt has been transfer over to wait list for MANAGER HELPDESK. EFFECTIVE SINCE 02/05/2023 documented in this encounter Plan of Treatment Upcoming Encounters Date Type Department Care Team (Late st Contact Info) Description 10/07/2024 2:00 PM EDT Clinical Support [facility] DIABETES/NUTRITION [address] [place] [address] [place] [address] 12/14/2024 2:15 PM EDT Office Visit [facility] MEDICINE [address] [place] [address] Shelbie Turner MD [address] [place] [phone] documented as of this encounter Visit Diagnoses Not on filedocumented in this encounter Care Teams Aesthetician Relationship Specialty Start Date End Date Shelbie Turner MD [address] [place], [place] [phone] PCP - General Internal Medicine 06/26/23 documented as of this encounter
--- OUTSIDE RECORDS SUMMARY | 2024-10-03 19:16 | XMS_ITS | Encounter Summary ---
Author Organization [employer] Address [address] [place] [address] 7 [place] [address] Care Team Providers Care Master Barber Name Role Phone Shelbie Turner MD Primary Care Pro vider Reason for Visit * Reason Comments Med Refill Encounter Details Date Type Department Care Team (Late Contact Info) Description 08/11/2024 Refill [facility] MEDICINE [address] [place] [address] Kizzy Ramires CNM [address] [place], [place] [phone] Social History Tobacco Use Types Packs/Day Years [...] Description 10/07/2024 2:00 PM EDT Clinical Support [facility] DIABETES/NUTRITION [address] [place] [address] [place] [address] 12/14/2024 2:15 PM EDT Office Visit [facility] MEDICINE [address] [place] [address] Shelbie Turner MD [address] [place] [address] documented as of this encounter Visit Diagnoses Not on filedocumented in this encounter Additional Health Concerns Assessment Noted Time PHQ-9 Depression Total Score: 5 06/24/19 24 9:23 AM EST documented as of this encounter Care Teams Master Barber Relationship Specialty Start Date End Date Shelbie Turner MD [address] [place] [phone] PCP - General Internal Medicine 06/26/23 documented as of this encounter
== END 2024-10-03 17:42 | disposition home or self-care (01) ==
LOC: HO.MRI 17:41
PROVIDERS: PCP Student in an Organized Health Care Education/Training Program; Visit Provider Student in an Organized Health Care Education/Training Program
DX: R41.0 Disorientation, unspecified (principal)
CPT/HCPCS: 70551

== ENCOUNTER 2024-10-05 21:55 | Emergency (ER) | payer MEDICAID, SELFPAY ==
[2024-10-05 22:01] VITALS: BP 123/70; PULSE 74; RESP 17; TEMP 36.9; O2SAT 98; BMI 33.3
[2024-10-05 22:24] LABS: MANUAL DIFF FLAG NO
[2024-10-05 22:26] LABS: Basophils Percent Auto 0.5 % (0-2); Eosinophils Absolute Auto 0.1 X10*3/uL (0.0-0.4); Eosinophils Percent Auto 1.3 % (0-4); Hematocrit 36.6 % (37.0-47.0); Hemoglobin 12.1 g/dl (12.0-16.0); Imm Gran Abs Auto 0.02 X10*3/uL (0.00-0.03); Imm Gran Pct Auto 0.2 % (0.0-0.4); Lymphocytes Absolute Auto 2.4 X10*3/uL (1.2-4.9); Lymphocytes Percent Auto 28.1 % (20-40); Mean Corpuscular HGB Conc 33.1 g/dl (31.0-35.0); Mean Corpuscular Hemoglobin 29.3 pg (27.0-33.0); Mean Corpuscular Volume 88.6 fL (80.0-98.0); Monocytes Absolute Auto 0.7 X10*3/uL (0.1-1.2); Monocytes Percent Auto 7.7 % (2-11); Neutrophils Absolute Auto 5.3 x10*3/uL (2.0-8.3); Neutrophils Percent Auto 62.2 % (45-73); Platelet Count 254 X10*3/uL (160-400); Red Blood Count 4.13 X10*6/uL (4.20-5.50); Red Cell Distribution Width 13.3 % (11.0-16.0); White Blood Count 8.5 X10*3/uL (4.8-10.8)
[2024-10-05 22:47] LABS: Alanine Aminotransferase 30 U/L (0-31); Alkaline Phosphatase 52 U/L (39-117); Anion Gap 13 (12-20); Bilirubin Total 0.3 mg/dL (0.0-1.0); Blood Urea Nitrogen 10 mg/dL (9-16); Calcium 9.2 mg/dL (8.4-10.2); Carbon Dioxide 22 mmol/L (22-29); Chloride 109 mmol/L (96-108); Estimated Glomerular Filt Rate > 60; Glucose Random 88 mg/dL (60-115); Potassium 3.9 mmol/L (3.3-5.1); Sodium 140 mmol/L (135-145); Total Protein 6.7 g/dL (6.5-8.0)
[2024-10-05 23:05] LABS: Aspartate Amino Transferase 25 U/L (5-31)
--- OUTSIDE RECORDS SUMMARY | 2024-10-05 23:42 | XMS_ITS | Clinical Summary ---
Author Organization [employer] Address [address] 7[address] [place] [address] Care Team Providers Care Rn Social Work Name Role Phone Shelbie Turner MD Primary [...] Encounters Date Type Department Care Team Description 10/05/2024 Orders Only GENERIC EXTERNAL DATA DEPARTMENT Provider, Generic External Data 10/03/2024 Telephone [facility] [address] [place] [address] [phone] Shelbie Turner MD Nurse Triage 09/23/2024 10:00 AM EDT Office Visit [facility] [address] [place] [address] [phone] Shelbie Turner MD Autism (Primary Dx); Dietary counseling; Exercise counseling; Asthma, unspecified asthma severity, unspecified whether complicated, unspecified whether persistent; Decreased vision; Health care maintenance; Memory loss; Confusion; Ringworm; Skin lesion; Confusion state; Bulimia nervosa, unspecified severity 09/23/2024 Travel 09/19/2024 Telephone [facility] [address] [place] [address] [phone] Shelbie Turner MD chart prep 09/16/2024 Orders Only [facility] [address] [place] [address] [phone] Shelbie Turner MD Class 2 obesity due to excess calories without serious comorbidity with body mass index (BMI) of 36.0 to 36.9 in adult (Primary Dx) 09/13/2024 2:00 PM EDT Clinical Support [facility] [address] [place] [phone] Class 1 obesity due to excess calories without serious comorbidity with body mass index (BMI) of 32.0 to 32.9 in adult (Primary Dx) 09/13/2024 Travel 09/07/2024 Population Health Risk Score [facility] ([facility]) Department [address] [place] [address] [phone] Provider, Population Health Generic 08/29/2024 2:00 PM EDT Nutrition [facility] [address] [place] [address] Obesity with body mass index of 30.0-39.9 (Primary Dx) 08/29/2024 Travel 08/24/2024 Telephone [facility] [address] [place] [address] Shelbie Turner MD Referral 08/11/2024 Refill [facility] [address] [place] [address] Kizzy Landrum CNM from Last 3 Months [...] 36.3 ??C (97.3 ??F) 09/23/2024 9:46 AM E DT Respiratory Rate 20 09/23/2024 9:46 AM EDT [...] Description 10/07/2024 2:00 PM EDT Clinical Support [facility] [address] [place] [phone] Imani Dewey, DARIEL [address] [place] [address] 12/14/2024 2:15 PM EDT Office Visit [facility] [address] [place] [address] [phone] Shelbie Turner MD [address] [place], [place] [phone] Health Maintenance Due Date Last Done Comments [...] Procedure Name Priority Date/Time Associated Diagnosis Comments COMPREHENSIVE METABOLIC PANEL Routine 10/05/2024 10:21 PM EDT CBC WITH AUTO DIFFERENTIAL Routine 10/05/2024 10:21 PM EDT MR BRAIN WO CONTRAST Routine 10/03/2024 5:50 PM EDT Confusion PAP SMEAR Routine 07/20/2023 11:03 AM EST [...] Recently Relevant to Health Maintenance Results * (ABNORMAL) CBC auto differential (10/05/2024 10:21 PM EDT) White Blood Count 8.5 4.8 - 10.8 X10*3/uL [facility] Red Blood Count 4.13(L) 4.20 - 5.50 X10*6/uL [facility] Hemoglobin 12.1 12.0 - 16.0 g/dl [facility] Hematocrit 36.6(L) 37.0 - 47.0 % [facility] Mean Corpuscular Volume 88.6 80.0 - 98.0 fL [facility] Mean Corpuscular Hemoglobin 29.3 27.0 - 33.0 pg [facility] Mean Corpuscular HGB Conc 33.1 31.0 - 35.0 g/dl [facility] Red Cell Distribution Width 13.3 11.0 - 16.0 % [facility] Platelet Count 254 160 - 400 X10*3/uL [facility] Mean Platelet Volume 10.0 9.4 - 12.3 fL [facility] Neutrophils Percent Auto 62.2 45 - 73 % [facility] Imm Gran Pct Auto 0.2 0.0 - 0.4 % [facility] Lymphocytes Percent Auto 28.1 20 - 40 % [facility] Monocytes Percent Auto 7.7 2 - 11 % [facility] Eosinophils Percent Auto 1.3 0 - 4 % [facility] Basophils Percent Auto 0.5 0 - 2 % [facility] NRBC Pct Auto 0.0 0.0 - 0.2 /100WBC [facility] Neutrophils Absolute Auto 5.3 2.0 - 8.3 x10*3/uL [facility] Imm Gran Abs Auto 0.02 0.00 - 0.03 X10*3/uL [facility] Lymphocytes Absolute Auto 2.4 1.2 - 4.9 X10*3/uL [facility] Monocytes Absolute Auto 0.7 0.1 - 1.2 X10*3/uL [facility] Eosinophils Absolute Auto 0.1 0.0 - 0.4 X10*3/uL [facility] Basophils Absolute Auto 0.0 0.0 - 0.2 X10*3/uL [facility] NRBC Abs Auto 0.000 0.0 - 0.012 X10*3/uL [facility] 10/05/2024 10:2 1 PM EDT 10/05/2024 10:23 PM EDT us Generic External Data Provider LAB BLOOD ORDERAB LES Final Result [facility] [address] [place] [phone] * (ABNORMAL) Comprehensive Metabolic Panel (10/05/2024 10:21 PM EDT) Sodium 140 135 - 145 mmol/L [facility] Potassium 3.9 3.3 - 5.1 mmol/L [facility] Chloride 109(H) 96 - 108 mmol/L [facility] Carbon Dioxide 22 22 - 29 mmol/L [facility] Anion Gap 13 12 - 20 [facility] Urea Nitrogen (BUN) 10 9 - 16 mg/dL [facility] Creatinine, Serum 0.74 0.5 - 1.4 mg/dL [facility] Creatinine Clr Calc Pharmacy 142.0 [facility] Comment:Provided height and weight: 172.72 cm,99.3 kg.eGFR (calculated from the MDRD study equation) and eCrCl(calculated from the Cockcroft-Gault equation) are based ondifferent parameters and may not yield comparable results.If eCrCl result is absurd, please check patient'sheight/weight. Estimated Glomerular Filt Rate >60 [facility] Comment:Chronic Kidney Disea se: Estimated GFR < 60 mL/min/1.27i8Ofaaxg Kidney Disease: Estimated GFR < 15 mL/min/1.73m2 Glucose 88 60 - 115 mg/dL [facility] Calcium 9.2 8.4 - 10.2 mg/dL [facility] Bilirubin, Total 0.3 0.0 - 1.0 mg/dL [facility] Aspartate Amino Transferase 25 5 - 31 U/L [facility] Alanine Aminotransferase 30 0 - 31 U/L [facility] Total Protein 6.7 6.5 - 8.0 g/dL [facility] Albumin Level 4.0 3.5 - 5.0 g/dL [facility] Alkaline Phosphatase 52 39 - 117 U/L [facility] 10/05/2024 10:2 1 PM EDT 10/05/2024 10:23 PM EDT us Generic External Data Provider LAB BLOOD ORDERAB LES Final Result [facility] [address] [place] [phone] * MR Brain w/o Contrast (10/03/2024 5:50 PM EDT) Anatomical Region Laterality Modality Brain Magnetic Resonan ce 10/03/2024 5:50 PM EDT Narrative 10/04/2024 7:11 AM EDT ? [facility] ?[address] ?[place] [address] ? Magnetic Resonance Report ? Signed ? Patient: Zajchowski,Slava Solange ?MR#: M ?? [id number] ? : 2000 ?Acct:[id number] ? Age/Sex: 24 / F ?ADM Date: 10/03/24 ? Loc: HO.MRI ? Attending Dr: Shelbie Lopez MD ? Ordering Physician: Shelbie Turner MD ?? Date of Service: 10/03/24 ?? Procedure(s): MR head/brain wo con ?? Accession Number(s): [id number] ? cc: Shelbie Turner MD ? EXAMINATION: ?? MR BRAIN WITHOUT CONTRAST ? CLINICAL INFORMATION: ?? Worsening memory. Confusion. History of TBI. ? COMPARISON: ?? None available. ? TECHNIQUE: ?? MRI of the brain was obtained using routine sequences without contrast. ? FINDINGS: ?? No restricted diffusion. ?? No acute intracranial hemorrhage, mass effect, midline shift, ?? hydrocephalus or herniation. ?? Kim-white matter differentiation is normal. ?? Posterior cranial fossa contents demonstrated low position ?? Of the cerebellar tonsils. ?? Sellar/suprasellar region demonstrated no signal abnormality or masses. ?? Craniocervical junction is intact. ?? Flow-void signal within the main cerebral vessels is normal. ?? Right accessory parotid gland. ?? Prominent lacrimal glands, bilaterally. ? MR/MR head/brain wo con ?? IMPRESSION: ?? No acute stroke/nonhemorrhagic ischemia. ?? No acute intracranial hemorrhage. ? Electronically signed by: ??Simeon Johnson MD ??10/04/2024 07:08 AM ?? EDT RP ? Dictated By: ?Simeon Vera MD ? Signed By: ?<Electronically signed by Simeon Arnold MD in OV> ? 10/04/24 0708 ? DD/ 1750 ? TD/TT: 10/03/24 1803 ? Care Professional: ? Procedure Note Teresa Peralta - 10/04/[address] [address] Magnetic Resonance Report Signed Patient: Slava Oviedo DiaTonyR#: M [id number] : 2000Acct:[id number] Age/Sex: 24 / FADM Date: 10/03/24 Loc: HO.MRI Attending Dr: Shelbie Lopez MD Ordering Physician: Shelbie Turner MD Date of Service: 10/03/24 Procedure(s): MR head/brain wo con Accession Number(s): [id number] cc: Shelbie Turner MD EXAMINATION: MR BRAIN WITHOUT CONTRAST CLINICAL INFORMATION: Worsening memory. Confusion. History of TBI. COMPARISON: None available. TECHNIQUE: MRI of the brain was obtained using routine sequences without contrast. FINDINGS: No restricted diffusion. No acute intracranial hemorrhage, mass effect, midline shift, hydrocephalus or herniation. Kim-white matter differentiation is normal. Posterior cranial fossa contents demonstrated low position Of the cerebellar tonsils. Sellar/suprasellar region demonstrated no signal abnormality or masses. Craniocervical junction is intact. Flow-void signal within the main cerebral vessels is normal. Right accessory parotid gland. Prominent lacrimal glands, bilaterally. MR/MR head/brain wo con IMPRESSION: No acute stroke/nonhemorrhagic ischemia. No acute intracranial hemorrhage. Electronically signed by: Simeon Johnson MD 10/04/2024 07:08 AM EDT Dictated By: Simeon Vera MD Signed By: <Electronically signed by Simeon Arnold MDin OV> 10/04/24 0708 DD/ 1750 TD/TT: 10/03/24 1803 Care Professional: Shelbie Lopez MD IMG MRI PROCEDURE S Final Result * Pap Smear (07/20/2023 11:03 AM EST) Swab Cervix uteri structure / Unknown 07/20/2023 11:03 AM EST 07/21/2023 8:00 AM EST [facility] - 08/04/2023 1:21 PM EST ----- ------- Name: Slava Oviedo ?Age/Sex: 23/F ? : 2000 Unit#: [id number] ?? Attend Dr: KIZZY LANDRUM CNM ?Re07/20/23 ?Status: DEP REF ? Location: HO.HHCLNP ? Disch: ? ----- ------- SPEC : [id number] ? RECD: 07/21/23 ? STATUS: ??SOUT ? REQ NUM: [id number] ? PHILIP: 07/20/23-1102 ? SUBM DR: KIZZY LANDRUM CNM ? ENTERED: ??07/21/23 ?SP TYPE: Pap Smr ?OTHR : ? [...] END OF REPORT ? us Kizzy Landrum [facility] CYTOLOGY ORDERABLES F inal Result [facility] [address] [place] [address] [phone] * Hepatitis C Antibody with Reflex to HCV, RNA, Quantitative, Real-Time PCR (06/24/2023 10:20 AM EST) Hepatitis C Antibody Nonreactive Nonreactive [facility] Comment:Antibodies to HCV no t detected; does not exclude early acuteHCV infection. Blood Venous blood specimen / Unknown 06/24/2023 10:20 AM EST 06/24/2023 11:20 AM EST Shelbie Lopez MD LAB BLOOD ORDERAB LES Final Result Performing Organization Address City/[facility]/ZIP Co de Phone Number [facility] [address] [place] [phone] * HIV-1/2 Antigen and Antibodies, Fourth Generation, with Reflexes (06/24/2023 10:20 AM EST) HIV AB/AG Nonreactive Nonreactive [facility] Comment:HIV-1 p24 Ag and/or HIV-1/HIV-2 Ab not detected.A test result that is nonreactive does not exclude thepossibility of exposure to or infection with HIV-1 and/orHIV-2. Nonreactive results in this assay for individualswith prior exposure to HIV-1 and/or HIV-2 may be due toantigen and antibody levels that are below the limit ofdetection of this assay.The [employer] HIV Ag/Ab Combo assay result andsupplemental assay results should be interpreted inconjunction with the patient's clinical presentation,history and other laboratory results. If the results areinconsistent with clinical evidence, additional testing issuggested to confirm the result. Blood Venous blood specimen / Unknown 06/24/2023 10:20 AM EST 06/24/2023 11:20 AM EST us Shelbie Lopez MD LAB BLOOD ORDERAB LES Final Result Performing Organization Address City/[facility]/ZIP Co de Phone Number [facility] [address] [place] [phone] * (ABNORMAL) Lipid Panel, Standard (06/24/2023 10:20 AM EST) Triglycerides 167(H) <150 mg/dL [facility] Comment:Desirable Triglyceri de: less than 150 mg/dLBorderline High Triglyceride 150-199 mg/dLHigh Triglyceride: 200-499 mg/dLVery High Triglyceride: greater than or equal to 5OO mg/dL Cholesterol 113 <200 mg/dL [facility] Comment:Desirable Cholestero l: less than 200 mg/dLBorderline High Cholesterol: 200-239 mg/dLHigh Cholesterol: greater than 239 mg/dL LDL Cholesterol Calculated 38 <100 mg/dL [facility] Comment:Desirable LDL: less than 100 mg/dLNear Optimal/Above Optimal LDL: 110- 129 mg/dLBorderline High LDL: 130-159 mg/dLHigh LDL: 160-189 mg/dLVery High LDL: greater than or equal to 190 mg/dL HDL Cholesterol 42 >40 mg/dL [facility] Comment:Desirable HDL: great er than 40 mg/dL Note: This HDL assay may give artificially low results in patients with liver disease. Blood Venous blood specimen / Unknown 06/24/2023 10:20 AM EST 06/24/2023 11:20 AM EST us Shelbie Lopez MD LAB BLOOD ORDERAB LES Final Result [facility] [address] [place] [address] [phone] from Last 3 Months or Most Recently Relevant to Health Maintenance Insurance [facility] C3 N F[employer] Care Teams Rn Social Work Relationship Specialty Start Date End Date Shelbie Turner MD [address] [place] [phone] PCP - General Internal Medicine 06/26/23
--- OUTSIDE RECORDS SUMMARY | 2024-10-05 23:42 | XMS_ITS | Encounter Summary ---
Author Organization [employer] Address [address] [place] [address] 7 [place] [address] Care Team Providers Care Judo Teacher Name Role Phone Shelbie Turner MD Primary Care Pro vider Reason for Visit * Reason Onset Date Comments New Patient 02/05/2023 Encounter Details Date Type Department Care Team ([facility] st Contact Info) Description 02/05/2023 Telephone [facility] [address] [place], [place] [phone] Mario Maciel MD [address] [place], [place] [phone] New Patient Social History Tobacco Use Types [...] AM EDT Tc to Pt, to Offer Career Education Teacher appt, No Answer/Could not leave Vm due to I'm sorry the person your trying to reach, has voicemail box that not been set up yet,Goodbye. 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 EFFECTIVE SINCE 02/05/2023 documented in this encounter Plan of Treatment Upcoming Encounters Date Type Department Care Team (Late st Contact Info) Description 10/07/2024 2:00 PM EDT Clinical Support [facility]NUTRITION [address] [place] [address] [place] [address] 12/14/2024 2:15 PM EDT Office Visit [facility] [address] [place] [address] Shelbie Turner MD [address] [place] [phone] documented as of this encounter Visit Diagnoses Not on filedocumented in this encounter Care Teams Judo Teacher Relationship Specialty Start Date End Date Shelbie Turner MD [address] [place], [place] [phone] PCP - General Internal Medicine 06/26/23 documented as of this encounter
--- OUTSIDE RECORDS SUMMARY | 2024-10-05 23:42 | XMS_ITS | Encounter Summary ---
Author Organization [employer] Address [address] [place] [address] Care Team Providers Care Welder Apprentice Gas Name Role Phone Shelbie Turner MD Primary Care Pro vider Encounter Details Date Type Department Care Team (Late st Contact Info) Description 10/05/2024 Orders Only GENERIC EXTERNAL DATA DEPARTMENT Provider, Generic External Data Social History Tobacco Use Types Packs/Day Years [...] Description 10/07/2024 2:00 PM EDT Clinical Support [facility]TRITION [address] [place] [phone] [place] [address] 12/14/2024 2:15 PM EDT Office Visit [facility] [address] [place] [phone] Shelbie Turner MD [address] [place] [address] documented as of this encounter Procedures Procedure Name Priority Date/Time Associated Diagnosis Comments CBC WITH AUTO DIFFERENTIAL Routine 10/05/2024 10:21 PM EDT COMPREHENSIVE METABOLIC PANEL Routine 10/05/2024 10:21 PM EDT documented in this encounter Results * (ABNORMAL) Comprehensive Metabolic Panel (10/05/2024 10:21 PM EDT) Sodium 140 135 - 145 mmol/L [facility] Potassium 3.9 3.3 - 5.1 mmol/L [facility] Chloride 109(H) 96 - 108 mmol/L [facility] Carbon Dioxide 22 22 - 29 mmol/L [facility] Anion Gap 13 12 - 20 [facility] Urea Nitrogen (BUN) 10 9 - 16 mg/dL [facility] Creatinine, Serum 0.74 0.5 - 1.4 mg/dL [facility] Creatinine Clr Calc Pharmacy 142.0 [facility] Comment:Provided height and weight: 172.72 cm,99.3 kg.eGFR (calculated from the MDRD study equation) and eCrCl(calculated from the Cockcroft-Gault equation) are based ondifferent parameters and may not yield comparable results.If eCrCl result is absurd, please check patient'sheight/weight. Estimated Glomerular Filt Rate >60 [facility] Comment:Chronic Kidney Disea se: Estimated GFR < 60 mL/min/1.32w0Ogtplx Kidney Disease: Estimated GFR < 15 mL/min/1.73m2 Glucose 88 60 - 115 mg/dL [facility] Calcium 9.2 8.4 - 10.2 mg/dL [facility] Bilirubin, Total 0.3 0.0 - 1.0 mg/dL [facility] Aspartate Amino Transferase 25 5 - 31 U/L [facility] Alanine Aminotransferase 30 0 - 31 U/L [facility] Total Protein 6.7 6.5 - 8.0 g/dL [facility] Albumin Level 4.0 3.5 - 5.0 g/dL [facility] Alkaline Phosphatase 52 39 - 117 U/L [facility] 10/05/2024 10:2 1 PM EDT 10/05/2024 10:23 PM EDT us Generic External Data Provider LAB BLOOD ORDERAB LES Final Result [facility] [address] [place] [phone] * (ABNORMAL) CBC auto differential (10/05/2024 10:21 PM EDT) White Blood Count 8.5 4.8 - 10.8 X10*3/uL [facility] Red Blood Count 4.13(L) 4.20 - 5.50 X10*6/uL [facility] Hemoglobin 12.1 12.0 - 16.0 g/dl [facility] Hematocrit 36.6(L) 37.0 - 47.0 % [facility] Mean Corpuscular Volume 88.6 80.0 - 98.0 fL [facility] Mean Corpuscular Hemoglobin 29.3 27.0 - 33.0 pg [facility] Mean Corpuscular HGB Conc 33.1 31.0 - 35.0 g/dl [facility] Red Cell Distribution Width 13.3 11.0 - 16.0 % [facility] Platelet Count 254 160 - 400 X10*3/uL [facility] Mean Platelet Volume 10.0 9.4 - 12.3 fL [facility] Neutrophils Percent Auto 62.2 45 - 73 % [facility] Imm Gran Pct Auto 0.2 0.0 - 0.4 % [facility] Lymphocytes Percent Auto 28.1 20 - 40 % [facility] Monocytes Percent Auto 7.7 2 - 11 % [facility] Eosinophils Percent Auto 1.3 0 - 4 % [facility] Basophils Percent Auto 0.5 0 - 2 % [facility] NRBC Pct Auto 0.0 0.0 - 0.2 /100WBC [facility] Neutrophils Absolute Auto 5.3 2.0 - 8.3 x10*3/uL [facility] Imm Gran Abs Auto 0.02 0.00 - 0.03 X10*3/uL [facility] Lymphocytes Absolute Auto 2.4 1.2 - 4.9 X10*3/uL [facility] Monocytes Absolute Auto 0.7 0.1 - 1.2 X10*3/uL [facility] Eosinophils Absolute Auto 0.1 0.0 - 0.4 X10*3/uL [facility] Basophils Absolute Auto 0.0 0.0 - 0.2 X10*3/uL [facility] NRBC Abs Auto 0.000 0.0 - 0.012 X10*3/uL [facility] 10/05/2024 10:2 1 PM EDT 10/05/2024 10:23 PM EDT us Generic External Data Provider LAB BLOOD ORDERAB LES Final Result Performing Organization Address City/State/[facility] Co de Phone Number [facility] [address] [place] [phone] documented in this encounter Visit Diagnoses Not on filedocumented in this encounter Additional Health Concerns Assessment Noted Time PHQ-9 Depression Total Score: 0 09/24/19 25 9:47 AM EDT documented as of this encounter Care Teams Welder Apprentice Gas Relationship Specialty Start Date End Date Shelbie Turner MD [address] [place] [address] PCP - General Internal Medicine 06/26/23 documented as of this encounter
--- OUTSIDE RECORDS SUMMARY | 2024-10-05 23:42 | XMS_ITS | Encounter Summary ---
Author Organization [employer] Address [address] [place] [address] 7 [place] [address] Care Team Providers Care Ssn/Ssbn Weapons Equipment Operator Name Role Phone Shelbie Turner MD Primary Care Pro vider Reason for Visit * Reason Comments Med Refill Encounter Details Date Type Department Care Team (Late Contact Info) Description 08/11/2024 Refill [facility] [address] [place] [address] Kizzy Ramires CNM [address] [place], [place] [phone] Social History Tobacco Use Types Packs/Day Years [...] Description 10/07/2024 2:00 PM EDT Clinical Support [facility] DIABETES/NUTRITION [address] [place] [address] [place] [address] 12/14/2024 2:15 PM EDT Office Visit [facility] [address] [place] [address] Shelbie Turner MD [address] [place] [address] documented as of this encounter Visit Diagnoses Not on filedocumented in this encounter Additional Health Concerns Assessment Noted Time PHQ-9 Depression Total Score: 5 06/24/19 24 9:23 AM EST documented as of this encounter Care Teams Ssn/Ssbn Weapons Equipment Operator Relationship Specialty Start Date End Date Shelbie Turner MD [address] [place] [phone] PCP - General Internal Medicine 06/26/23 documented as of this encounter
[2024-10-05 23:52] VITALS: BP 118/72; PULSE 61; RESP 16; TEMP 36.1; O2SAT 98
--- NOTE | 2024-10-06 01:49 | ED_ITS ---
HPI - Neuro Symptoms/Deficit General Chief Complaint: Neuro Symptoms/Deficit Stated Complaint: Seizure episode Time Seen by Provider: 10/06/24 01:49 Source: patient and family ( mother) Mode of arrival: ambulatory Limitations: no limitations History of Present Illness ED Provider: Dr. Shaan Randhawa HPI Narrative: 24-year-old female with a history perimenstrual dysphoria disorder, depression, anxiety, bipolar disorder, autism, ADHD, bulimia who presents emergency department for evaluation an episode of confusion and a sense of impending doom. Patient believes that she may have had a seizure. She states that her PCP is evaluating for possible F signs/petite mal seizures. Patient had an MRI on 10/03/2024 which was negative. Patient is waiting for an outpatient EEG which is not been scheduled yet. She states that yesterday at 16:00 hours she was a passenger riding in a car when she suddenly felt confused and dizzy. She believes that the symptoms were brief, eventually resolved and she is currently at her baseline. She states that in August of 2024 she had an episode where she was slurring words and talking slowly. She states that she has also had intermittent headaches and has been under increased stress. She denied fever, chills, nausea, vomiting, diarrhea, myalgias arthralgias. Related Data Previous Rx's ?Medication ?Instructions ?Recorded clonidine HCl 0.1 mg tablet 0.05 mg PO BEDTIME 30 days #15 tabs 09/04/22 escitalopram oxalate 20 mg tablet 20 mg PO DAILY 30 days #30 tabs 09/04/22 hydroxyzine HCl 25 mg tablet 25 mg PO TID PRN Anxiety 30 days 09/04/22 #90 tabs ziprasidone HCl 20 mg capsule 20 mg PO BIDWM 30 days #60 caps 09/04/22 Allergies Allergy/AdvReac Type Severity Reaction Status Date / Time insect venom Allergy Swelling Verified 10/05/24 22:03 Penicillins Allergy Nausea Verified 10/05/24 22:03 Review of Systems 2 Review of Systems: Yes all other systems are reviewed and are negative [facility] Past Medical History [facility] Narrative: Social history: She denies tobacco use. She rarely drinks alcohol. She denies drug use. Medical History (Updated 10/07/24 @ 00:00 by Background Daemon) Anxiety and depression Borderline personality disorder Social History Social History (System 03/24/23 @ 12:56 by Nisa Houston) Household Members: Family Housing: House Do you presently have visiting nurse or other home services: No Alcohol intake: current Alcohol intake frequency: holidays/special occasions only Patient Tobacco Use Status: Never used Tobacco Smoked in Last 30 Days: No Use of substances other than those prescribed or required for medical reasons: No Substance Use Type: Marijuana Advance Directives: No Advance Directives Information Provided: Yes Do you have a plan to hurt others: No Plan Patient : No service: No Sexual orientation: Don't Know Physical Exam 2 Vital Signs: Vital Signs: Last Vital Signs Temp 97.8 F 10/06/24 02:46 Pulse 75 10/06/24 02:46 Resp 16 10/06/24 02:46 BP 106/68 10/06/24 02:46 Pulse Ox 99 10/06/24 02:46 O2 Del Method Room Air 10/06/24 02:46 BMI result Body Mass Index 33.3 Vital signs were normal Exam: General: Awake, alert in no distress Head: Normocephalic, atraumatic EENT: PERRL, Lids normal, sclera normal, conjunctiva normal, nose normal , ears normal, throat without erythema or exudates Neck: Supple, no adenopathy Lung: breath sounds symmetric, no wheezing, rales or rhonchi Chest: symmetric movement, nontender Heart: regular rate and rhythm, normal S1, S2 no murmurs or rubs Abdomen: soft, non-tender, nondistended, normal bowel sounds Back: no vertebral tenderness, no CVAT Extremities: no deformities, moves all extremities symmetrically Neuro: Awake, alert, oriented, normal speech, cranial nerves intact, moves all extremities symmetrically Psych: Pleasant, cooperative Medications Administered Discontinued Medications Generic Name Dose Route Start Last Admin Trade Name Freq PRN Reason Stop Dose Admin Lorazepam 1 mg 10/06/24 02:08 10/06/24 02:42 Lorazepam 1 Mg Tablet PO 10/06/24 02:09 1 mg ONCE ONE Administration Medical Decision Making Medical Decision Making [facility] Narrative: 24-year-old female with a history perimenstrual dysphoria disorder, depression, anxiety, bipolar disorder, autism, ADHD, bulimia who presents emergency department for evaluation an episode of confusion and a sense of impending doom. the symptoms came on suddenly yesterday at around the 16:00 hours while she was a front seat passenger in a car. She states that the symptoms or brief, resolved and she is currently at her baseline. Patient had an episode slurred speech in talking slowly in August of 2024 and is currently being evaluated for possible abscess on seizures by her PCP. Patient had an MRI of her brain on 11/02/2024 which was normal and she is waiting to have an outpatient EEG. Patient states that she has been having intermittent headaches and has been under increased stress. Vital signs were normal. Physical examination was unremarkable. Differential diagnosis: Includes but is not limited to Stroke, TIA, petite mal seizure, anxiety attack, anemia, electrolyte abnormalities Course: My independent interpretation patient's laboratory evaluation is as follows: CBC was normal. CMP was normal. She had a recent MRI therefore I did not think that a CT scan at this time was needed. The patient's presentation is consistent with either an anxiety attack or petite mal seizure. the patient was feeling anxious emergency department she was given Ativan 1 mg orally. She was advised to continue taking medications as prescribed by your providers. She was advised to contact her PCP for follow-up of this event and for further evaluation. She was given printed and verbal instructions discharged home Admission/Observation Consideration of admission/observation: Escalation of care including admission/observation considered ( Yes) Lab Data MDM Lab Attestation statement: I reviewed the patient's lab results. 10/05/24 22:21 10/05/24 22:21 Labs: Lab Results 10/05/24 Range/Units 22:21 WBC 8.5 (4.8-10.8) X10*3/uL RBC 4.13 L (4.20-5.50) X10*6/uL Hgb 12.1 (12.0-16.0) g/dl Hct 36.6 L (37.0-47.0) % MCV 88.6 (80.0-98.0) fL MCH 29.3 (27.0-33.0) pg MCHC 33.1 (31.0-35.0) g/dl RDW 13.3 (11.0-16.0) % Plt Count 254 (160-400) X10*3/uL MPV 10.0 (9.4-12.3) fL Immature Gran % (Auto) 0.2 (0.0-0.4) % Neut % (Auto) 62.2 (45-73) % Lymph % (Auto) 28.1 (20-40) % [place] % (Auto) 7.7 (2-11) % Eos % (Auto) 1.3 (0-4) % Baso % (Auto) 0.5 (0-2) % Lymph # (Auto) 2.4 (1.2-4.9) X10*3/uL [place] # (Auto) 0.7 (0.1-1.2) X10*3/uL Eos # (Auto) 0.1 (0.0-0.4) X10*3/uL Baso # (Auto) 0.0 (0.0-0.2) X10*3/uL Abs Immat Gran (auto) 0.02 (0.00-0.03) X10*3/uL Absolute Neuts (auto) 5.3 (2.0-8.3) x10*3/uL Absolute Nucleated RBC 0.000 (0.0-0.012) X10*3/uL Nucleated RBC % (auto) 0.0 (0.0-0.2) /100WBC Sodium 140 (135-145) mmol/L Potassium 3.9 (3.3-5.1) mmol/L Chloride 109 H (96-108) mmol/L Carbon Dioxide 22 (22-29) mmol/L Anion Gap 13 (12-20) BUN 10 (9-16) mg/dL Creatinine 0.74 (0.5-1.4) mg/dL Estim Creat Clear Calc 142.0 Estimated GFR > 60 Random Glucose 88 (60-115) mg/dL Calcium 9.2 (8.4-10.2) mg/dL Total Bilirubin 0.3 (0.0-1.0) mg/dL AST 25 (5-31) U/L ALT 30 (0-31) U/L Alkaline Phosphatase 52 (39-117) U/L Total Protein 6.7 (6.5-8.0) g/dL Albumin 4.0 (3.5-5.0) g/dL Independent Historian Clinical information obtained from an independent historian. History obtained from or confirmed by: Other ( mother) Chronic Conditions Patient?s care impacted by: Other ( bipolar disorder, anxiety) Discharge Plan Discharge Clinical Impression: Altered mental status Patient Disposition: Home, Self-Care Additional Instructions: At this time, I do not have a clear cause for the symptoms that you had earlier today. It was possible that this may be an absence/petite mal seizure or it may be caused by anxiety. Your blood work today was normal. The MRI of your brain that you had on 09/30/2024 was normal which is reassuring. Follow up with your doctor to get your EEG to further evaluate you for possible seizures. Continue taking medications as prescribed by your providers You were given Ativan (lorazepam) 1 mg orally prior to discharge to help with possible anxiety and possible seizure. Follow-up with your doctor in 2 days. Please return to the emergency department if your symptoms get worse or if you develop any symptoms that are concerning to you. Prescriptions: No Action clonidine HCl 0.1 mg Tablet 0.05 mg PO BEDTIME 30 Days Qty: 15 0RF Protocol: Hold for SBP< HOLD for SBP < : 90 ziprasidone HCl 20 mg Capsule 20 mg PO BIDWM 30 Days Qty: 60 0RF escitalopram oxalate 20 mg Tablet 20 mg PO DAILY 30 Days Qty: 30 0RF hydroxyzine HCl 25 mg Tablet 25 mg PO TID PRN (Reason: Anxiety) 30 Days Qty: 90 0RF Interventions: ED Discharge Assessment Last Done: 10/06/24 02:46 Discharge Date/Time: 10/06/24 02:47 Print Language: Wolof
[2024-10-06 01:50] VITALS: BP 106/68; PULSE 75; RESP 16; TEMP 36.6; O2SAT 99
[2024-10-06] MEDS: LORazepam 1 MG TABLET PO (02:42)
[2024-10-06 02:46] VITALS: BP 106/68; PULSE 75; RESP 16; TEMP 36.6; O2SAT 99
== END 2024-10-06 02:47 | disposition home or self-care (01) ==
PROVIDERS: Emergency Provider Emergency Medicine Emergency Medical Services
DX: R41.82 Altered mental status, unspecified (principal); F32.A Depression, unspecified; F60.3 Borderline personality disorder; F41.9 Anxiety disorder, unspecified; Z79.899 Other long term (current) drug therapy
CPT/HCPCS: 36415; 80053; 85025; 99283; 99284

== ENCOUNTER 2024-11-24 08:03 | Outpatient (REF) | payer MEDICAID, SELFPAY ==
--- NOTE | 2024-11-24 08:07 | EEG_ITS ---
This is a 16 channel EEG with an EKG lead. The patient is reported awake during the tracing. Background EEG rhythm is about 10 hertz, 5 to 20 microvolt posteriorly lower amplitude fast anteriorly. Photic stimulation does not produce any significant driving. Hyperventilation is not performed. Cardiac lead does not reveal any significant abnormality. No sharp wave spikes or paroxysmal tendency noted. IMPRESSION: Unremarkable EEG. MD SHEILA Beal/BREANA / [id number]
--- OUTSIDE RECORDS SUMMARY | 2024-11-24 08:08 | XMS_ITS | Clinical Summary ---
Author Organization [employer] Address [address] [facility] 7 [place] [address] Care Team Providers Care Sql Architect Name Role Phone Shelbie Turner MD Primary Care Pro vider Allergies No known active allergies Medications cloNIDine (Catapres) 0.1 MG tablet 05/26/2023 Active escitalopram (Lexapro) 20 MG tablet Take 20 mg by mouth Once per day. 05/14/2023 Active ziprasidone (Geodon) 40 MG capsule 05/26/2023 Active topiramate (Topamax) 25 MG tablet Take 25 mg by mouth at bedtime. 07/21/2024 Active Active Problems Problem Noted Date Diagnosed Date Autism 09/23/2024 Asthma, unspecified asthma s everity, unspecified whether complicated, unspecified whether persistent 09/23/2024 Confusion state 09/23/2024 Bulimia 09/23/2024 Health care maintenance 06/24/2023 Depression with anxiety 06/24/2023 Borderline personality disorder 06/24/2023 PCOS (polycystic ovarian syndrome) 06/24/2023 Obesity 06/24/2023 Skin lesion 06/24/2023 Encounters Date Type Department Care Team Description 11/01/2024 11:15 AM EDT Office Visit [facility] [address] [place] [phone] Krystina Butler ANP Confusion state (Primary Dx) 11/01/2024 Orders Only [facility] [address] [place] [address] Krystina Butler ANP Confusion state (Primary Dx) 11/01/2024 Travel 10/28/2024 Telephone [facility] [address] [place] [address] Shelbie Turner MD Chart Prep 10/12/2024 Telephone [facility] [place] [address] Kerry Arnold, RN NTTS 10/05/2024 Orders Only GENERIC EXTERNAL DATA DEPARTMENT Provider, Generic External Data 10/03/2024 Telephone [facility] [place] [address] Shelbie Turner MD Nurse Triage 09/23/2024 10:00 AM EDT Office Visit [facility] [place] [address] Shelbie Turner MD Autism (Primary Dx); Dietary counseling; Exercise counseling; Asthma, unspecified asthma severity, unspecified whether complicated, unspecified whether persistent; Decreased vision; Health care maintenance; Memory loss; Confusion; Ringworm; Skin lesion; Confusion state; Bulimia nervosa, unspecified severity 09/23/2024 Travel 09/19/2024 Telephone [facility] [place] [address] Shelbie Turner MD chart prep 09/16/2024 Orders Only [facility] [place] [address] Shelbie Turner MD Class 2 obesity due to excess calories without serious comorbidity with body mass index (BMI) of 36.0 to 36.9 in adult (Primary Dx) 09/13/2024 2:00 PM EDT Clinical Support [facility]ET[facility] [address] Class 1 obesity due to excess calories without serious comorbidity with body mass index (BMI) of 32.0 to 32.9 in adult (Primary Dx) 09/13/2024 Travel 09/07/2024 Population Health Risk Score [facility] ([facility]) Department [address] [place] [phone] Provider, Population Health Generic 08/29/2024 2:00 PM EDT Nutrition [facility] DI[facility]ETES/[place] [address] Obesity with body mass index of 30.0-39.9 (Primary Dx) 08/29/2024 Travel 08/24/2024 Telephone [facility] [address] [place] [address] Shelbie Turner MD Referral from Last 3 Months Immunizations Immunization Administration Dates Next Due DTaP 05/12/2003, 0,1998,09/27,1998 DTaP / HiB / IPV 10/29/1999, 9,1998,07/19 Hep B, Adolescent or Pediatric 1998,1998,1998 IPV 05/12/2003, 0,1998,07/19 Influenza, seasonal, injecta ble, preservative free 03/29/2010,03/09/2007 MMR 05/12/2003,10/29/1999 Meningococcal MCV4P ACYW-135 01/02/2010 Tdap 06/24/2023,01/02/2010 Varicella 01/02/2010,09/04/1999 Family History Medical History Relation Name Comments [...] Sign Reading Time Taken Comments Blood Pressure 108/70 11/01/2024 11:39 AM EDT Pulse 66 11/01/2024 11:39 AM EDT Temperature 36.3 C (97.3 F) 09/23/2024 9:46 AM EDT Respiratory Rate 20 11/01/2024 11:39 AM EDT Oxygen Saturation 96% 09/23/2024 9:46 AM EDT Inhaled Oxygen Concentration - - Weight 98.9 kg (218 lb) 11/01/2024 11:39 AM EDT Height 172.7 cm (5' 8 ) 11/01/2024 11:39 AM EDT Body Mass Index 33.15 11/01/2024 11:39 AM EDT Plan of Treatment Upcoming Encounters Date Type Department Care Team (Late st Contact Info) Description 12/14/2024 2:15 PM EDT Office Visit [facility] [address] [place] [phone] Shelbie Turner MD [address] [place], [place] [phone] Health Maintenance Due Date Last Done Comments HPV Vaccines (1 - 3-dose series) 2013 Pneumococcal Vaccine: Pediatrics (0 to 5 Years) and At-Risk Patients (6 to 49) Years (1 of 2 - PCV) 2017 COVID-19 Vaccine (1 - season) 2024 Influenza Vaccine (Season Ended) 2025 03/29/2010, 03/09/2007 Family Planning (PISQ) 06/13/2025 06/13/2024 Alcohol/Substance Use Screening 09/23/2025 09/23/2024 Depression Screening 09/23/2025 09/23/2024, 09/24/19 SDOH Screening 09/23/2025 09/23/2024 Disability Screening 11/01/2025 11/01/2024 Tobacco Screening 11/01/2025 11/01/2024 Pap Smear 07/20/2026 07/20/2023 Lipid Panel 06/24/2028 06/24/2023, 02/25/2023 DTaP/Tdap/Td Vaccines (8 - Td or Tdap) [...] on patient's age to complete this topic Meningococcal B Vaccine Aged Out No l onger eligible based on patient's age to complete [...] Blood Count 8.5 4.8 - 10.8 X10*3/uL [facility] Red Blood Count 4.13(L) 4.20 - 5.50 X10*6/uL [facility] Hemoglobin 12.1 12.0 - 16.0 g/dl [facility] Hematocrit 36.6(L) 37.0 - 47.0 % [facility] Mean Corpuscular Volume 88.6 80.0 - 98.0 fL [facility] Mean Corpuscular Hemoglobin 29.3 27.0 - 33.0 pg [facility] Mean Corpuscular HGB Conc 33.1 31.0 - 35.0 g/dl [facility] Red Cell Distribution Width 13.3 11.0 - 16.0 % [facility] Platelet Count 254 160 - 400 X10*3/uL [facility] Mean Platelet Volume 10.0 9.4 - 12.3 fL [facility] Neutrophils Percent Auto 62.2 45 - 73 % [facility] Imm Gran Pct Auto 0.2 0.0 - 0.4 % [facility] Lymphocytes Percent Auto 28.1 20 - 40 % [facility] Monocytes Percent Auto 7.7 2 - 11 % [facility] Eosinophils Percent Auto 1.3 0 - 4 % [facility] Basophils Percent Auto 0.5 0 - 2 % [facility] NRBC Pct Auto 0.0 0.0 - 0.2 /100WBC [facility] Neutrophils Absolute Auto 5.3 2.0 - 8.3 x10*3/uL [facility] Imm Gran Abs Auto 0.02 0.00 - 0.03 X10*3/uL [facility] Lymphocytes Absolute Auto 2.4 1.2 - 4.9 X10*3/uL [facility] Monocytes Absolute Auto 0.7 0.1 - 1.2 X10*3/uL [facility] Eosinophils Absolute Auto 0.1 0.0 - 0.4 X10*3/uL [facility] Basophils Absolute Auto 0.0 0.0 - 0.2 X10*3/uL [facility] NRBC Abs Auto 0.000 0.0 - 0.012 X10*3/uL [facility] 10/05/2024 10:2 1 PM EDT 10/05/2024 10:23 PM EDT us Generic External Data Provider LAB BLOOD ORDERAB LES Final Result [facility] [address] [place] [phone] * (ABNORMAL) Comprehensive Metabolic Panel (10/05/2024 10:21 PM EDT) Sodium 140 135 - 145 mmol/L [facility] Potassium 3.9 3.3 - 5.1 mmol/L [facility] Chloride 109(H) 96 - 108 mmol/L [facility] Carbon Dioxide 22 22 - 29 mmol/L [facility] Anion Gap 13 12 - 20 [facility] Urea Nitrogen (BUN) 10 9 - 16 mg/dL [facility] Creatinine, Serum 0.74 0.5 - 1.4 mg/dL [facility] Creatinine Clr Calc Pharmacy 142.0 [facility] Comment:Provided height and weight: 172.72 cm,99.3 kg.eGFR (calculated from the MDRD study equation) and eCrCl(calculated from the Cockcroft-Gault equation) are based ondifferent parameters and may not yield comparable results.If eCrCl result is absurd, please check patient'sheight/weight. Estimated Glomerular Filt Rate >60 [facility] Comment:Chronic Kidney Disea se: Estimated GFR < 60 mL/min/1.31e6Oinwtk Kidney Disease: Estimated GFR < 15 mL/min/1.73m2 Glucose 88 60 - 115 mg/dL [facility] Calcium 9.2 8.4 - 10.2 mg/dL [facility] Bilirubin, Total 0.3 0.0 - 1.0 mg/dL [facility] Aspartate Amino Transferase 25 5 - 31 U/L [facility] Alanine Aminotransferase 30 0 - 31 U/L [facility] Total Protein 6.7 6.5 - 8.0 g/dL [facility] Albumin Level 4.0 3.5 - 5.0 g/dL [facility] Alkaline Phosphatase 52 39 - 117 U/L [facility] 10/05/2024 10:2 1 PM EDT 10/05/2024 10:23 PM EDT us Generic External Data Provider LAB BLOOD ORDERAB LES Final Result [facility] [address] [place] [phone] * MR Brain w/o Contrast (10/03/2024 5:50 PM EDT) Anatomical Region Laterality Modality Brain Magnetic Resonan ce 10/03/2024 5:50 PM EDT Narrative 10/04/2024 7:11 AM EDT [address] [address] Magnetic Resonance Report Signed Patient: Slava Oviedo MR#: [id number] : 2000 Acct:[id number] Age/Sex: 24 / F ADM Date: 10/03/24 Loc: HO.MRI Attending Dr: Shelbie Lopez MD Ordering Physician: Shelbie Turner MD Date of Service: 10/03/24 Procedure(s): MR head/brain wo con Accession Number(s): [id number] cc: Shelbie Turner MD EXAMINATION: MR BRAIN [...] Signed By: <Electronically signed by Simeon Arnold MD in OV> 10/04/24 0708 DD/ 1750 TD/TT: 10/03/24 1803 Social Sciences Department Chair: Procedure Note Donotuseinterpreter, Image - 10/04/[address] [address] Magnetic Resonance Report Signed Patient: Slava OviedoR#: M [id number] : 2000Acct:[id number] Age/Sex: 24 / FADM Date: 10/03/24 Loc: HO.MRI Attending Dr: Shelbie Lopez MD Ordering Physician: Shelbie Turner MD Date of Service: 10/03/24 Procedure(s): MR head/brain wo con Accession Number(s): [id number] cc: Shelbie Turner MD EXAMINATION: MR BRAIN [...] 10/04/24 0708 DD/ 1750 TD/TT: 10/03/24 1803 Social Sciences Department Chair: Shelbie Lopez MD IMG MRI PROCEDURE S Final Result * Pap Smear (07/20/2023 11:03 AM EST) Swab Cervix uteri structure / Unknown 07/20/2023 11:03 AM EST 07/21/2023 8:00 AM EST [facility] - 08/04/2023 1:21 PM EST ----- ------- Name: Slava Oviedo Age/Sex: 23/F : 2000 Unit#: [id number] Attend Dr: TATIANA LANDRUM CNM Re07/20/23 Status: DEP [facility] ----- ------- SPEC : [id number] RECD: 07/21/23 STATUS: ERIN MENDEZ NUM: [id number] PHILIP: 07/20/23-[address]: TATIANA LANDRUM ENTERED: 07/21/23 SP TYPE: Pap Smr OTHR DR: ORDERED: Pap Smear Interpretation Satisfactory for evaluation. No endocervical cells seen. Abundant blood. Negative for intraepithelial lesion or malignancy. Clinical Information LMP: Oral contraceptive Previous PAP test: Unknown date/findings Material Received ThinPrep-Cervical ----- ------- Signed (signature on file) DANILO Magallanes ([facility]) 08/04/23 1321 ----- ------- END OF REPORT us Tatiana KNAPP LAB CYTOLOGY ORDERABLES F inal Result Performing Organization Address [facility]/ZIP Co de Phone Number [facility] [address] [place] [phone] * Hepatitis C Antibody with Reflex to HCV, RNA, Quantitative, Real-Time PCR (06/24/2023 10:20 AM EST) Hepatitis C Antibody Nonreactive Nonreactive [facility] Comment:Antibodies to HCV no t detected; does not exclude early acuteHCV infection. Blood Venous blood specimen / Unknown 06/24/2023 10:20 AM EST 06/24/2023 11:20 AM EST us Shelbie Lopez MD LAB BLOOD ORDERAB LES Final Result Performing Organization Address [facility]/ZIP Co de Phone Number [facility] [address] [place] [phone] * HIV-1/2 Antigen and Antibodies, Fourth Generation, with Reflexes (06/24/2023 10:20 AM EST) HIV AB/AG Nonreactive Nonreactive [facility] Comment:HIV-1 p24 Ag and/or HIV-1/HIV-2 Ab not detected.A test result that is nonreactive does not exclude thepossibility of exposure to or infection with HIV-1 and/orHIV-2. Nonreactive results in this assay for individualswith prior exposure to HIV-1 and/or HIV-2 may be due toantigen and antibody levels that are below the limit ofdetection of this assay.The [employer] HIV Ag/Ab Combo assay result andsupplemental assay results should be interpreted inconjunction with the patient's clinical presentation,history and other laboratory results. If the results areinconsistent with clinical evidence, additional testing issuggested to confirm the result. Blood Venous blood specimen / Unknown 06/24/2023 10:20 AM EST 06/24/2023 11:20 AM EST us Shelbie Lopez MD LAB BLOOD ORDERAB LES Final Result Performing Organization Address City/[facility]/ZIP Co de Phone Number [facility] [address] [place] [phone] * (ABNORMAL) Lipid Panel, Standard (06/24/2023 10:20 AM EST) Triglycerides 167(H) <150 mg/dL [facility] Comment:Desirable Triglyceri de: less than 150 mg/dLBorderline High Triglyceride 150-199 mg/dLHigh Triglyceride: 200-499 mg/dLVery High Triglyceride: greater than or equal to 5OO mg/dL Cholesterol 113 <200 mg/dL [facility] Comment:Desirable Cholestero l: less than 200 mg/dLBorderline High Cholesterol: 200-239 mg/dLHigh Cholesterol: greater than 239 mg/dL LDL Cholesterol Calculated 38 <100 mg/dL [facility] Comment:Desirable LDL: less than 100 mg/dLNear Optimal/Above Optimal LDL: 110- 129 mg/dLBorderline High LDL: 130-159 mg/dLHigh LDL: 160-189 mg/dLVery High LDL: greater than or equal to 190 mg/dL HDL Cholesterol 42 >40 mg/dL [facility] Comment:Desirable HDL: great er than 40 mg/dL Note: This HDL assay may give artificially low results in patients with liver disease. Blood Venous blood specimen / Unknown 06/24/2023 10:20 AM EST 06/24/2023 11:20 AM EST us Shelbie Lopez MD LAB BLOOD ORDERAB LES Final Result Performing Organization Address City/[facility]/ZIP Co de Phone Number [facility] [address] [place] [phone] from Last 3 Months or Most Recently Relevant to Health Maintenance Insurance [facility] C3 HSN FULL Care Teams Sql Architect Relationship Specialty Start Date End Date Shelbie Turner MD [address] [place] [phone] PCP - General Internal Medicine 06/26/23
== END 2024-11-24 08:04 | disposition home or self-care (01) ==
LOC: HO.NEURO 08:03
PROVIDERS: Visit Provider Student in an Organized Health Care Education/Training Program
DX: R41.0 Disorientation, unspecified (principal)
CPT/HCPCS: 95816

== ENCOUNTER 2024-12-14 15:17 | Outpatient (REF) | payer MEDICAID, SELFPAY ==
--- NOTE | ~2024-12-14 | XR_ITS ---
EXAMINATION: XR CERVICAL SPINE CLINICAL INFORMATION: PAIN COMPARISON: None available. TECHNIQUE: 3 views of the cervical spine were obtained. FINDINGS: There are no prevertebral soft tissue or bony abnormalities demonstrated. No compression fractures or subluxations are identified. Alignment is maintained at the atlanto-axial articulation. The disc spaces are preserved. No endplate changes are seen. Facets are normally aligned. The prevertebral soft tissues are normal. XR/XR cervical spine 3V IMPRESSION: Normal cervical spine radiographs. Electronically signed by: Edwar Anthony MD 12/14/2024 04:37 PM EDT
--- OUTSIDE RECORDS SUMMARY | 2024-12-14 14:15 | XMS_ITS | Encounter Summary ---
Author Organization [employer] Address [address] [place] [address] 7 [place] [address] Care Team Providers Care Inventory Associate Name Role Phone Shelbie Turner MD Primary Care Pro vider Reason for Referral * Consultation (Routine) - Pending Review Specialty Diagnoses / Procedures Referred By Marline mcleod Referred To Contact Physical Therapy Diagnoses Neck pain Shelbie Turner MD [address] [place] [address] Phone: tel: fax: Referral ID Status Reason Start Date Expiration Date Visits Requested Visits Authorized [id number] Pending Review Specialty Services Required 12/14/2024 12/14/2025 1 1 Encounter Details Date Type Department Care Team (Late st Contact Info) Description 12/14/2024 2:15 PM EDT Office Visit [facility] [address] [place] [phone] Shelbie Turner MD [address] [place] [address] PTSD (post-traumatic stress disorder) (Primary Dx); Neck pain; Annual physical exam Social History Tobacco Use Types Packs/Day Years [...] Sign Reading Time Taken Comments Blood Pressure 126/82 12/14/2024 2:26 PM EDT Pulse 84 12/14/2024 2:26 PM EDT Temperature 36.7 C (98 F) 12/14/2024 2:26 PM EDT Respiratory Rate 20 12/14/2024 2:26 PM EDT Oxygen Saturation 99% 12/14/2024 2:26 PM EDT Inhaled Oxygen Concentration - - Weight 98.6 kg (217 lb 6.4 oz) 12/14/2024 2:26 P M EDT Height 170.2 cm (5' 7 ) 12/14/2024 2:26 PM EDT Body Mass Index 34.05 12/14/2024 2:26 PM EDT documented in this encounter Plan of Treatment Upcoming Encounters Date Type Department Care Team (Late st Contact Info) Description 01/13/2025 9:45 AM EDT Office Visit [facility] [address] [place], [place] [phone] Shelbie Turner MD [address], [place] [phone] Scheduled Orders Name Type Priority Associated Diagnoses Orde r Schedule XR Cervical Spine 2-3 Views Imaging Routine Neck pain Expected: 12/14/2024, Expires: 12/14/2025 CBC Lab Routine Annual physical exam Expected: 12/14/2024 (Approximate), Expires: 12/14/2025 Comprehensive Metabolic Panel Lab Routine Annual physical exam Expected: 12/14/2024 (Approximate), Expires: 12/14/2025 Hemoglobin A1c Lab Routine Annual physical exam Expected: 12/14/2024 (Approximate), Expires: 12/14/2025 Hepatitis B Core Antibody, Total Lab Routine Annual physical exam Expected: 12/14/2024 (Approximate), Expires: 12/14/2025 Hepatitis B Surface Antibody, Qualitative Lab Routine Annual physical exam Expected: 12/14/2024 (Approximate), Expires: 12/14/2025 Hepatitis B surface antigen, EIA Lab Routine Annual physical exam Expected: 12/14/2024 (Approximate), Expires: 12/14/2025 Hepatitis C Antibody with Reflex to HCV, RNA, Quantitative, Real-Time PCR Lab Routine Annual physical exam Expected: 12/14/2024 (Approximate), Expires: 12/14/2025 HIV-1/2 Antigen and Antibodies, Fourth Generation, with Reflexes Lab Routine Annual physical exam Expected: 12/14/2024 (Approximate), Expires: 12/14/2025 Lipid Panel, Standard Lab Routine Annual physical exam Expected: 12/14/2024 (Approximate), Expires: 12/14/2025 Syphilis Screen Lab Routine Annual physical exam Expected: 12/14/2024 (Approximate), Expires: 12/14/2025 TSH with Reflex to Free T4 Lab Routine Annual physical exam Expected: 12/14/2024 (Approximate), Expires: 12/14/2025 Vitamin D, 25-Hydroxy, Total, Immunoassay Lab Routine Annual physical exam Expected: 12/14/2024 (Approximate), Expires: 12/14/2025 Chlamydia/N. Gonorrhoeae, PCR, Urine Lab Routine Annual physical exam Ordered: 12/14/2024 Scheduled Referrals Name Type Priority Associated Diagnoses Orde r Schedule Referral to Physical Therapy Outpatient Referral Routine Neck pain Expected: 12/14/2024 (Approximate), Expires: 12/14/2025 documented as of this encounter Visit Diagnoses Diagnosis PTSD (post-traumatic stress disorder)- Primary Posttraumatic stress disorder Neck pain Cervicalgia Annual physical exam Routine general medical examination at a health care facility documented in this encounter Additional Health Concerns Assessment Noted Time PHQ-9 Depression Total Score: 0 09/24/19 25 9:47 AM EDT documented as of this encounter Care Teams Inventory Associate Relationship Specialty Start Date End Date Shelbie Turner MD [address] [place] [phone] PCP - General Internal Medicine 06/26/23 documented as of this encounter
== END 2024-12-14 15:18 | disposition home or self-care (01) ==
LOC: HO.HHCX 15:17
PROVIDERS: PCP Student in an Organized Health Care Education/Training Program; Visit Provider Student in an Organized Health Care Education/Training Program
DX: M54.2 Cervicalgia (principal)
CPT/HCPCS: 72040

== ENCOUNTER → 2024-12-14 15:57 | Outpatient (BNV) | payer MEDICAID, SELFPAY | PROVIDERS: PCP Student in an Organized Health Care Education/Training Program; Visit Provider Radiology Diagnostic Radiology | DX: M54.2 Cervicalgia (principal) | CPT/HCPCS: 72040 ==

== ENCOUNTER 2024-12-21 21:41 | Emergency (ER) | payer MEDICAID, SELFPAY ==
--- NOTE | 2024-12-21 21:42 | ECG_ITS ---
Test Reason : CHEST PAIN Blood Pressure : */* mmHG Vent. Rate : 72 BPM Atrial Rate : 72 BPM P-R Int : 140 ms QRS Dur : 92 ms QT Int : 412 ms P-R-T Axes : 60 44 32 degrees QTcB Int : 451 ms Normal sinus rhythm Normal EKG When compared with ECG of 23-Sep-2024 14:15, No significant change was found Referred By: Generic ED Physician Electronically Signed By: VERONIKA NEVAREZ
[2024-12-21 21:44] VITALS: BP 116/77; PULSE 87; RESP 16; TEMP 36.3; O2SAT 100; BMI 34.1
[2024-12-21 22:25] LABS: MANUAL DIFF FLAG NO
[2024-12-21 22:26] LABS: Hematocrit 35.8 % (37.0-47.0); Hemoglobin 12.0 g/dl (12.0-16.0); Imm Gran Abs Auto 0.01 X10*3/uL (0.00-0.03); Imm Gran Pct Auto 0.1 % (0.0-0.4); Lymphocytes Absolute Auto 1.8 X10*3/uL (1.2-4.9); Mean Corpuscular HGB Conc 33.5 g/dl (31.0-35.0); Mean Corpuscular Hemoglobin 29.6 pg (27.0-33.0); Mean Corpuscular Volume 88.4 fL (80.0-98.0); NRBC Abs Auto 0.000 X10*3/uL (0.0-0.012); NRBC Pct Auto 0.0 /100WBC (0.0-0.2); Platelet Count 245 X10*3/uL (160-400); Red Blood Count 4.05 X10*6/uL (4.20-5.50); White Blood Count 6.7 X10*3/uL (4.8-10.8)
[2024-12-21 22:42] LABS: Anion Gap 11 (12-20); Blood Urea Nitrogen 15 mg/dL (9-16); Calcium 9.1 mg/dL (8.4-10.2); Carbon Dioxide 23 mmol/L (22-29); Chloride 110 mmol/L (96-108); Creatinine Clr Calc Pharmacy 121.0; Estimated Glomerular Filt Rate > 60; Potassium 3.7 mmol/L (3.3-5.1); Sodium 140 mmol/L (135-145)
[2024-12-22 03:22] LABS: Appearance Urine Clear; Glucose Urine UA Negative (Negative); PH 5.5 (5.0-9.0); Specific Gravity - Urine 1.020 (1.005-1.025); UMIC TRIGGER UACC YES
[2024-12-22 03:33] VITALS: BP 119/78; PULSE 68; RESP 14; TEMP 36.4; O2SAT 100
--- NOTE | 2024-12-22 04:23 | ED.GENADULT ---
HPI - General Adult General Chief complaint: Allergic Reaction Stated complaint: ?allergic rx, chest pain Time Seen by Provider: 12/22/24 04:14 Source: patient Mode of arrival: ambulatory Limitations: no limitations History of Present Illness ED Provider: Dr. Lashaun Erickson HPI narrative: Patient comes to the emergency room complaining of runny nose, cough with sputum production. No fever chills. Patient states that it started same day that she started taking Macrobid for a UTI. Patient believes it is side-effect from Macrobid. Patient denies hematuria or dysuria, denies flank pain. Related Data Previous Rx's ?Medication ?Instructions ?Recorded clonidine HCl 0.1 mg tablet 0.05 mg PO BEDTIME 30 days #15 tabs 09/04/22 escitalopram oxalate 20 mg tablet 20 mg PO DAILY 30 days #30 tabs 09/04/22 hydroxyzine HCl 25 mg tablet 25 mg PO TID PRN Anxiety 30 days 09/04/22 #90 tabs ziprasidone HCl 20 mg capsule 20 mg PO BIDWM 30 days #60 caps 09/04/22 benzonatate 100 mg capsule 100 mg PO TID PRN cough #12 caps 12/22/24 Allergies Allergy/AdvReac Type Severity Reaction Status Date / Time insect venom Allergy Swelling Verified 12/21/24 21:57 Penicillins Allergy Nausea Verified 12/21/24 21:57 Review of Systems Review of Systems: Constitutional : No Weight loss, No Fever, No Chills, No Night Sweats, No Fatigue, No Malaise ENT/Mouth : No Hearing loss, No Ear Pain, complaining of Nasal Congestion, No Sinus Pain, No Hoarseness, No sore throat, No Rhinorrhea, No Swallowing Difficulty Eyes: No Eye Pain, No Swelling, No Redness, No Foreign Body, No Discharge, No Vision Changes Cardiovascular : No Chest Pain, No SOB, No Dyspnea on Exertion, No Orthopnea, No Edema, No Palpitations Respiratory : Complaining of productive cough, no wheezing, complaining of runny nose Gastrointestinal : No Nausea, No Vomiting, No Diarrhea, No Constipation, No abdominal Pain, No Hematochezia, No Melena Genitourinary : no irregular bleeding, No Dysuria, No Urinary Frequency, No Hematuria, No Urinary Incontinence, No Urgency, No Flank Pain, No Urinary Flow Changes, No Hesitancy Musculoskeletal : No joint pain, No Myalgias, No Joint Swelling Skin : No Skin Lesions, No rash Neuro : No Weakness, No Numbness, No Paresthesias, No Loss of Consciousness, No Dizziness, No Headache Psych : No Anxiety/Panic, No Depression, No SI/HI/AH/VH, No Social Issues, Heme/Lymph: No Bruising, No Bleeding,No Lymphadenopathy Endocrine : No Polyuria, No Polydipsia, No Temperature Intolerance [facility] Past Medical History Medical History Anxiety and depression Borderline personality disorder Social History Social History (System 03/24/23 @ 12:56 by Nisa Houston) Household Members: Family Housing: House Do you presently have visiting nurse or other home services: No Alcohol intake: current Alcohol intake frequency: holidays/special occasions only Patient Tobacco Use Status: Never used Tobacco Substance Use Type: Marijuana Advance Directives: No Advance Directives Information Provided: Yes Do you have a plan to hurt others: No Plan service: No Sexual orientation: Don't Know Physical Exam ED Vital Signs: Vital Signs - 24 hr 12/21/24 21:44 12/22/24 03:33 Temperature 97.3 F 97.6 F Pulse Rate 87 68 Respiratory Rate 16 14 Blood Pressure 116/77 119/78 Pulse Oximetry 100 100 Oxygen Delivery Method Room Air Room Air BMI result Body Mass Index 34.1 Const Other: Appearance: Alert. Oriented X3. No acute distress. Eyes: Pupils equal, round and reactive to light. ENT: Pharynx normal. This congestion Neck: Normal inspection. Neck supple. No lymph nodes noted. No crepitus CVS: Normal heart rate and rhythm. Pulses normal. Normal S1 and S2 Respiratory: No respiratory distress. Breath sounds normal. No Wheezing. No rales Abdomen: Soft and nontender. No rigidity. No distention. Skin: Skin warm and dry. Normal skin color. Normal skin turgor. Extremities: No lower extremity edema. No Lacerations. No Rash Neuro: Oriented X 3. No motor deficit. No sensory deficit. Moving all extremities. No slurred speech. CN 2 through 12 grossly intact Psych: calm, cooperative, normal affect Course Course Course Narrative: Patient complaining of URI symptoms, patient believes he has a side-effect of her UTI medication since her symptoms started the same day she started the UTI antibiotics. Medical Decision Making Medical Decision Making [facility] Narrative: My interpretation of labs: No significant abnormality in patient's hematology and chemistry, urinalysis negative for UTI. I discussed with the patient that she has a URI. Urinalysis is negative for UTI. Seems that patient has a diabetic is working well. Discussed with the patient that this is not a side effect of her medication. She has a viral URI and it is coincidence that she started taking the Macrobid at the same time that she got viral symptoms. Patient instructed to continue taking Macrobid since it is working well for her. Patient has UTI symptoms have resolved with be doses of Macrobid. Instructed we will finish the entire course Lab Data [facility] Lab Attestation statement: I reviewed the patient's lab results. 12/21/24 22:21 12/21/24 22:21 Labs: Lab Results 12/21/24 12/22/24 Range/Units 22:21 03:03 WBC 6.7 (4.8-10.8) X10*3/uL RBC 4.05 L (4.20-5.50) X10*6/uL Hgb 12.0 (12.0-16.0) g/dl Hct 35.8 L (37.0-47.0) % MCV 88.4 (80.0-98.0) fL MCH 29.6 (27.0-33.0) pg MCHC 33.5 (31.0-35.0) g/dl RDW 13.3 (11.0-16.0) % Plt Count 245 (160-400) X10*3/uL MPV 10.0 (9.4-12.3) fL Immature Gran % (Auto) 0.1 (0.0-0.4) % Neut % (Auto) 63.7 (45-73) % Lymph % (Auto) 27.2 (20-40) % Lamb % (Auto) 7.4 (2-11) % Eos % (Auto) 1.3 (0-4) % Baso % (Auto) 0.3 (0-2) % Lymph # (Auto) 1.8 (1.2-4.9) X10*3/uL Lamb # (Auto) 0.5 (0.1-1.2) X10*3/uL Eos # (Auto) 0.1 (0.0-0.4) X10*3/uL Baso # (Auto) 0.0 (0.0-0.2) X10*3/uL Abs Immat Gran (auto) 0.01 (0.00-0.03) X10*3/uL Absolute Neuts (auto) 4.3 (2.0-8.3) x10*3/uL Absolute Nucleated RBC 0.000 (0.0-0.012) X10*3/uL Nucleated RBC % (auto) 0.0 (0.0-0.2) /100WBC Sodium 140 (135-145) mmol/L Potassium 3.7 (3.3-5.1) mmol/L Chloride 110 H (96-108) mmol/L Carbon Dioxide 23 (22-29) mmol/L Anion Gap 11 L (12-20) BUN 15 (9-16) mg/dL Creatinine 0.85 (0.5-1.4) mg/dL Estim Creat Clear Calc 121.0 Estimated GFR > 60 Random Glucose 96 (60-115) mg/dL Calcium 9.1 (8.4-10.2) mg/dL Urine Color Yellow Urine Appearance Clear Urine pH 5.5 (5.0-9.0) Ur Specific [place] 1.020 (1.005-1.025) Urine Protein Negative (Neg-Trace) mg/dL Urine Glucose (UA) Negative (Negative) mg/dL Urine Ketones Negative (Negative) mg/dL Urine Blood Moderate (2+) H (Negative) Urine Nitrite Negative (Negative) Ur Leukocyte Esterase Negative (Negative) Urine RBC 6-10 H (0-2) /HPF Urine WBC 0-5 (0-5) /HPF Ur Squamous Epith Cells 3-5 (0-2) /HPF Urine Bacteria None Seen (None Seen) Hyaline Casts 0-2 (0-2) /LPF Discharge Plan Discharge Clinical Impression: Viral URI with cough Patient Disposition: Home, Self-Care Instructions: Upper Respiratory Infection (ED) Additional Instructions: Continue taking your Macrobid for the UTI. Please follow-up with your primary care physician tomorrow. If you have any worsening or new symptoms, please return to the emergency room or call 911 Prescriptions: New benzonatate 100 mg capsule 100 mg PO TID PRN (Reason: cough) Qty: 12 0RF No Action clonidine HCl 0.1 mg Tablet 0.05 mg PO BEDTIME 30 Days Qty: 15 0RF Protocol: Hold for SBP< HOLD for SBP < : 90 ziprasidone HCl 20 mg Capsule 20 mg PO BIDWM 30 Days Qty: 60 0RF escitalopram oxalate 20 mg Tablet 20 mg PO DAILY 30 Days Qty: 30 0RF hydroxyzine HCl 25 mg Tablet 25 mg PO TID PRN (Reason: Anxiety) 30 Days Qty: 90 0RF Print Language: Syrian
[2024-12-22 04:32] VITALS: BP 119/74; PULSE 71; RESP 16; TEMP 36.6; O2SAT 99
[2024-12-22 04:41] VITALS: BP 119/74; PULSE 71; RESP 16; TEMP 36.6; O2SAT 99
== END 2024-12-22 04:41 | disposition home or self-care (01) ==
PROVIDERS: Emergency Provider Emergency Medicine; PCP Student in an Organized Health Care Education/Training Program
DX: J06.9 Acute upper respiratory infection, unspecified (principal); R05.9 Cough, unspecified; R09.89 Other specified symptoms and signs involving the circulatory and respiratory systems; Z79.899 Other long term (current) drug therapy
CPT/HCPCS: 36415; 80048; 81001; 85025; 93005; 99283; 99284

== ENCOUNTER → 2024-12-21 21:42 | Outpatient (BNV) | payer MEDICAID, SELFPAY | PROVIDERS: Emergency Provider Emergency Medicine; PCP Student in an Organized Health Care Education/Training Program; Visit Provider Internal Medicine | DX: R07.9 Chest pain, unspecified (principal) | CPT/HCPCS: 93010 ==

== ENCOUNTER 2024-12-31 10:37 | Outpatient (REF) | payer MEDICAID, SELFPAY ==
[2024-12-31 11:44] LABS: Hematocrit 39.9 % (37.0-47.0); Hemoglobin 12.9 g/dl (12.0-16.0); Mean Corpuscular HGB Conc 32.3 g/dl (31.0-35.0); Mean Corpuscular Hemoglobin 29.1 pg (27.0-33.0); Mean Corpuscular Volume 90.1 fL (80.0-98.0); NRBC Abs Auto 0.000 X10*3/uL (0.0-0.012); NRBC Pct Auto 0.0 /100WBC (0.0-0.2); Platelet Count 313 X10*3/uL (160-400); Red Blood Count 4.43 X10*6/uL (4.20-5.50); White Blood Count 7.1 X10*3/uL (4.8-10.8)
[2024-12-31 11:57] LABS: Hemoglobin A1C 120.9642 umol/L; Total Hemoglobin (HGBA1C) 3408.8360 umol/L
[2024-12-31 12:16] LABS: Alanine Aminotransferase 29 U/L (0-31); Albumin Level 4.6 g/dL (3.5-5.0); Alkaline Phosphatase 57 U/L (39-117); Anion Gap 13 (12-20); Aspartate Amino Transferase 19 U/L (5-31); Blood Urea Nitrogen 12 mg/dL (9-16); Calcium 9.3 mg/dL (8.4-10.2); Carbon Dioxide 23 mmol/L (22-29); Chloride 108 mmol/L (96-108); Cholesterol 149 mg/dL (<200); Estimated Glomerular Filt Rate > 60; HDL Cholesterol 49 mg/dL (>40); Potassium 4.3 mmol/L (3.3-5.1); Sodium 140 mmol/L (135-145); Total Protein 7.5 g/dL (6.5-8.0); Triglycerides 216 mg/dL (<150)
[2024-12-31 12:32] LABS: HBS Num1 0.13 mIU/mL (0-7.99); HBc Num1 0.08 S/CO (0.00-0.79); HBsAGNum1 0.32 S/CO (0.00-0.99); HIV Num 1 0.15 S/CO (0.00-0.99); Hepatitis B Surface Antigen Negative (Negative); Syphilis Screen Nonreactive (Nonreactive); ~HepC Num1 0.16 S/CO (0.00-0.79); ~Hepatitis B Surface Antibody NONREACTIVE (Nonreactive); ~Hepatitis C Antibody Nonreactive (Nonreactive)
[2024-12-31 12:44] LABS: Folate 5.0 ng/mL (> or = 4.0); Vitamin B12 531 pg/mL (200-900)
[2024-12-31 13:25] LABS: CT PCR Urine NOT DETECTED (Not Detect.); NG PCR Urine NOT DETECTED (Not Detect.)
[2025-01-02 07:38] LABS: Follicle Stimulating Hormone 6.6 mIU/mL
[2025-01-09 03:13] LABS: Estradiol Ultra Sensitive 22 pg/mL
== END 2024-12-31 10:38 | disposition home or self-care (01) ==
LOC: HO.LAB 10:37
PROVIDERS: PCP Student in an Organized Health Care Education/Training Program; Visit Provider Student in an Organized Health Care Education/Training Program
DX: Z00.00 Encounter for general adult medical examination without abnormal findings (principal); E28.2 Polycystic ovarian syndrome
CPT/HCPCS: 36415; 80053; 80061; 82306; 82533; 82607; 82670; 82746; 83001; 83002; 83036; 83498; 84146; 84402; 84403; 84443; 85027; 86704; 86706; 86780; 86803; 87340; 87389; 87491; 87591